=== PATIENT | female | born 1975 | race Caucasian/White ===

== ENCOUNTER → 2019-02-01 10:24 | Outpatient (CLI) | payer OTHER, SELFPAY ==
[2019-02-01 11:11] LABS: Add Manual Diff / Slide Review NO; Basophils Absolute Auto 100 /uL (0-100); Basophils Percent Auto 0.8 % (0-2); Eosinophils Absolute Auto 200 /uL (0-450); Eosinophils Percent Auto 2.8 % (2-4); Hematocrit 37.9 % (36-46); Hemoglobin 12.9 g/dL (12.0-16.0); Lymphocytes Absolute Auto 1700 /uL (1100-4500); Lymphocytes Percent Auto 23.5 % (25-40); Mean Corpuscular Hemoglobin 31.2 PG (26-34); Mean Corpuscular Volume 91.6 fL (80-100); Monocytes Absolute Auto 500 /uL (0-900); Monocytes Percent Auto 7.1 % (3-14); Neutrophils Absolute Auto 4700 /uL (1500-7000); Neutrophils Percent Auto 65.8 % (50-75); Platelet Count 283 X10^3/uL (150-400); Red Blood Cell Count 4.13 X10^6/uL (4.0-5.2); Red Cell Distribution Width 13.6 % (11.6-14.8); White Blood Cell Count 7.1 X10^3/uL (4.5-11.0)
[2019-02-01 11:48] LABS: HCG Quantitative /Beta subunit 1239.3 mIU/mL
[2019-02-01 11:58] LABS: Hepatitis B Surface Antigen NEGATIVE s/c (NEGATIVE)
[2019-02-02 22:49] LABS: RPR Screen Nonreactive (Nonreactive)
[2019-02-03 16:36] LABS: HIV Ag/Ab, 4th Gen Nonreactive (Nonreactive)
== END ==
PROVIDERS: PCP Nurse Practitioner Family; Visit Provider Nurse Practitioner Family
DX: N91.2 Amenorrhea, unspecified (principal); Z64.0 Problems related to unwanted pregnancy
CPT/HCPCS: 36415; 80055; 84702; 86703; 86850; 86900; 86901

== ENCOUNTER → 2019-02-03 12:45 | Outpatient (CLI) | payer OTHER, SELFPAY ==
[2019-02-03 14:21] LABS: HCG Quantitative /Beta subunit 1072.6 mIU/mL
== END ==
PROVIDERS: PCP Nurse Practitioner Family; Visit Provider Nurse Practitioner Family
DX: N91.2 Amenorrhea, unspecified (principal)
CPT/HCPCS: 36415; 84702

== ENCOUNTER → 2019-02-07 15:18 | Outpatient (CLI) | payer OTHER, SELFPAY ==
[2019-02-07 19:54] LABS: HCG Quantitative /Beta subunit 737.67 mIU/mL
== END ==
PROVIDERS: PCP Nurse Practitioner Family; Visit Provider Nurse Practitioner Family
DX: O02.81 Inappropriate change in quantitative human chorionic gonadotropin (hCG) in early pregnancy (principal)
CPT/HCPCS: 36415; 84702

== ENCOUNTER → 2019-08-23 08:56 | Outpatient (CLI) | payer OTHER, SELFPAY ==
--- NOTE | 2019-08-23 | DI.RAD.S_ITS ---
PROCEDURE: XR FOOT LT MIN 3V INDICATIONS: LEFT FOOT PAIN TECHNIQUE: 3 views of the foot were acquired. COMPARISON: [facility], , FOOT 3V RIGHT, 11/29/2015, 10:46. FINDINGS: Bones: No fractures or dislocations. No suspicious bony lesions. Plantar calcaneal spur. Borderline left hallux valgus, with first MTP angle measuring 15 ?. No definite right hallux valgus. Soft tissues: No tibiotalar joint effusion. Achilles tendon appears normal. IMPRESSION: Borderline left hallux valgus. Left plantar calcaneal spur. If the patient's pain or other symptoms persist, consider further evaluation with MRI Dictated by: Abiodun Pedraza M.D. on 08/23/2019 at 11:40 Approved by: Abiodun Pedraza M.D. on 08/23/2019 at 11:56
== END ==
PROVIDERS: PCP Nurse Practitioner Family; Visit Provider Nurse Practitioner Family
DX: M79.672 Pain in left foot (principal); M77.32 Calcaneal spur, left foot
CPT/HCPCS: 73630

== ENCOUNTER → 2020-12-28 09:22 | Outpatient (CLI) | payer OTHER, SELFPAY ==
[2020-12-28 10:28] LABS: GTT (PREG) 1 Hour PP 50gm Dose 190 mg/dL (76-139)
== END ==
PROVIDERS: PCP Nurse Practitioner Family; Referring Provider Nurse Practitioner Obstetrics & Gynecology; Visit Provider Nurse Practitioner Obstetrics & Gynecology
DX: Z34.90 Encounter for supervision of normal pregnancy, unspecified, unspecified trimester (principal); Z13.1 Encounter for screening for diabetes mellitus; Z3A.16 16 weeks gestation of pregnancy
CPT/HCPCS: 36415; 82950

== ENCOUNTER → 2021-01-03 07:26 | Outpatient (CLI) | payer OTHER, SELFPAY ==
[2021-01-03 08:24] LABS: Glucose Fasting 108 mg/dL (70-100)
[2021-01-03 09:21] LABS: Glucose 1 Hour 200 mg/dL (70-170)
[2021-01-03 10:36] LABS: Glucose 2 Hour 147 mg/dL (70-140)
[2021-01-03 11:01] LABS: Glucose Tol Interpretation INTERPRETATION
[2021-01-03 11:33] LABS: Glucose 3 Hour 112 mg/dL (70-115)
== END ==
PROVIDERS: PCP Nurse Practitioner Family; Referring Provider Nurse Practitioner Obstetrics & Gynecology; Visit Provider Nurse Practitioner Obstetrics & Gynecology
DX: Z34.90 Encounter for supervision of normal pregnancy, unspecified, unspecified trimester (principal); Z13.1 Encounter for screening for diabetes mellitus; R73.02 Impaired glucose tolerance (oral); Z3A.16 16 weeks gestation of pregnancy
CPT/HCPCS: 36415; 82951; 82952

== ENCOUNTER → 2021-02-04 13:59 | Outpatient (CLI) | payer OTHER, SELFPAY ==
--- NOTE | 2021-02-04 15:28 | DIET.PN ---
INITIAL GESTATIONAL DIABETES ASSESSMENT ASSESS:? Mrs. Simpson is a 45 yof referred for gestational diabetes with recent medical hx significant for HTN and severe heartburn. She is G5, P0. She has family hx of diabetes on both sides. Prior to pt was completely vegan, but has started introducing eggs and cheese back into diet. She currently has a dexcom CGM. ? ENA:?Jun 12, 2021 (scheduled early delivery) ? WKS GESTATION:?? 22 wks ?LABS: fb 1 hr: 200 2hr: 147 3hr: 112 ? MEDS: na ? DIET:? Avocado, eggs, nuts, cheese, leafy greens Avoids: caffeine, animal protein ? HT:? 64in ? PRE-PREG WT:? 230lb UBW: 210lb ? PRE-PREG BMI:???39.5 ? CURRENT WT: 226lb ? TOTAL WT GAIN:? -4lb EXERCISE: hiking, walking, active at work NUTRITION DX 1. Altered nutrition related lab values r/t gestational diabetes as evidenced by recent labs (OGGT). INTERVENTION 1. Discussed pathophysiology of gestational diabetes and impact of hormone and nutrition/diet on blood sugar control.? Discussed fed versus non-fed state.? 2. Recommended checking fasting, pre-meal and 1hr post prandial (3x/day).? Discussed goals for glycemic control (<95 FBG, <140 1-hr PP).? 3. Discussed the effect of carbohydrates/protein/fat on blood sugar control.? Stressed importance of consistent carbohydrate intake at each meal and provided instructions for recommended servings/portions of carbohydrates/protein per meal.? Provided pt with educational material. 4. Introduced carbohydrate counting and measuring carbohydrate content via servings sizes and reading nutrition labels.? Provided handouts.? Pt will need further review 5. Discussed importance of meal timing and not going >3 hours between meals.? Provided sample meal schedule for pt.? Pt agreeable.?? 6. Discussed importance a pre-sharon vitamin and including food sources of calcium, vitamin D, iron and folic acid for baby and mother?s nutrition support. 7. Discussed caffeine intake. Recommend no more than 200 mg/day (1 cup coffee). 8. Discussed rule of 15 for hypoglycemia. 9. Recommend patient purchase Urine Ketone strips and instructed on use and when to contact provider. 10. Recommended patient continue exercise as appropriate per PCP approval. 11. Patient may need medication management, will follow-up with plan of care at next visit after reviewing glucose results.? MONITOR/EVAL: Follow up call in 1 week to discuss numbers and any barriers to care. Good compliance expected. Review: carb sources, carb counting, portion size, meal timing, BG log, weight.
== END ==
PROVIDERS: PCP Nurse Practitioner Family; Referring Provider Nurse Practitioner Obstetrics & Gynecology; Visit Provider Nurse Practitioner Obstetrics & Gynecology
DX: O24.419 Gestational diabetes mellitus in pregnancy, unspecified control (principal); I10 Essential (primary) hypertension; Z3A.22 22 weeks gestation of pregnancy; Z71.3 Dietary counseling and surveillance
CPT/HCPCS: G0108

== ENCOUNTER → 2021-05-13 11:43 | Outpatient (ROUT) | payer OTHER, SELFPAY ==
[2021-05-13 13:47] LABS: Add Manual Diff / Slide Review NO; Basophils Absolute Auto 0 /uL (0-100); Basophils Percent Auto 0.4 % (0-2); Eosinophils Absolute Auto 200 /uL (0-450); Eosinophils Percent Auto 2.4 % (2-4); Hematocrit 32.5 % (36-46); Hemoglobin 10.7 g/dL (12.0-16.0); Lymphocytes Absolute Auto 1500 /uL (1100-4500); Lymphocytes Percent Auto 15.9 % (25-40); Mean Corpuscular HGB Conc 32.8 % (30-36); Mean Corpuscular Hemoglobin 28.3 PG (26-34); Mean Corpuscular Volume 86.2 fL (80-100); Monocytes Absolute Auto 600 /uL (0-900); Monocytes Percent Auto 6.6 % (3-14); Neutrophils Absolute Auto 7100 /uL (1500-7000); Neutrophils Percent Auto 74.7 % (50-75); Platelet Count 299 X10^3/uL (150-400); Red Blood Cell Count 3.77 X10^6/uL (4.0-5.2); Red Cell Distribution Width 14.8 % (11.6-14.8); White Blood Cell Count 9.5 X10^3/uL (4.5-11.0)
[2021-05-13 14:16] LABS: Aspartate Aminotransferase 28 IU/L (14-36); BUN Creatinine Ratio 12.2 (6-22); Blood Urea Nitrogen 5 mg/dL (7-17); Estimated Glomerular Filt Rate > 60.0 mL/min (>60); Uric Acid 2.8 mg/dL (2.5-6.2)
[2021-05-13 15:45] LABS: Creatinine Urine Random 149.4 mg/dL; Protein (Total) Urine Random 7 mg/dL (0-12); Protein Creatinine Ratio Urine 0.04 GRAM/24H
[2021-05-13 23:40] LABS: Thyroid Stimulating Hormone < 0.015 uIU/mL (0.47-4.68)
== END ==
PROVIDERS: PCP Nurse Practitioner Family; Visit Provider Nurse Practitioner Obstetrics & Gynecology
DX: O16.9 Unspecified maternal hypertension, unspecified trimester (principal); Z36.85 Encounter for antenatal screening for Streptococcus B; Z3A.35 35 weeks gestation of pregnancy
CPT/HCPCS: 82570; 84156; 84436; 84443; 84450; 84550; 85025; 87081

== ENCOUNTER → 2021-05-15 11:07 | Outpatient (CLI) | payer OTHER, SELFPAY ==
--- NOTE | 2021-05-15 11:10 | DI.US.S_ITS ---
PROCEDURE: US OB LIMITED INDICATIONS: BPP AND GROWTH OUTSIDE/PRIOR DATING DATA: Last menstrual period (LMP): In-vitro fertilization. LMP-based estimated date of delivery (ENA): Please refer to clinical record. . First dating scan (date and location): Not available. Estimated date of delivery (ENA) from first dating scan: Patient reports IV F with due date 06/12/21.. TECHNIQUE: Real-time scanning was performed of the fetus, with image documentation and biometric measurements. Endovaginal scanning: Not needed COMPARISON: None. FINDINGS: General: A single living intrauterine gestation is present. Presentation: Vertex. Placenta: Placental position is anterior , without previa. Amniotic fluid index: 14.3 cm, normal range is 5-24 cm. heart rate: 132 beats per minute. Maternal cervical canal: Not visualized due to vertex presentation. biometrics: Biparietal diameter: 9.3 cm, 37 weeks 5 days Head circumference: 33.2 cm, 37 weeks 6 days Abdominal circumference: 31.5 cm, 35 weeks 3 days Femur length: 6.8 cm, 35 weeks 0 days Estimated gestational age from initial scan: Not available. Composite gestational age from present scan: 36 weeks 4 days Estimated weight: 2779 g. Measurement variability for biometric dating: +/- 7 days from 14 weeks to 15 weeks 6 days gestation, +/- 10 days from 16 weeks to 21 weeks 6 days gestation, +/- 2 weeks from 22 weeks to 27 weeks 6 days gestation, +/- 3 weeks for 28 weeks gestation or later. weight reference: 4500 g or EFW >90/95% is considered macrosomia or large for gestational age. EFW <10% is small for gestational age. EFW 5% or less is considered intra-uterine growth restriction. Other: Normal biophysical profile with 8 of 8 possible points assigned.. IMPRESSION: Appropriate interval growth given the clinically reported in-vitro fertilization targeted date of delivery. Vertex presentation. Normal biophysical profile of 8 of 8 possible points. Dictated by: Sami Yeager M.D. on 05/15/2021 at 12:55 Approved by: Sami Yeager M.D. on 05/15/2021 at 12:59
== END ==
PROVIDERS: PCP Nurse Practitioner Family; Referring Provider Nurse Practitioner Obstetrics & Gynecology; Visit Provider Nurse Practitioner Obstetrics & Gynecology
DX: O09.813 Supervision of pregnancy resulting from assisted reproductive technology, third trimester (principal); O09.513 Supervision of elderly primigravida, third trimester; O10.013 Pre-existing essential hypertension complicating pregnancy, third trimester; O10.413 Pre-existing secondary hypertension complicating pregnancy, third trimester; O24.414 Gestational diabetes mellitus in pregnancy, insulin controlled; Z3A.36 36 weeks gestation of pregnancy
CPT/HCPCS: 76815; 76819

== ENCOUNTER → 2021-05-22 11:03 | Outpatient (CLI) | payer OTHER, SELFPAY ==
--- NOTE | 2021-05-22 11:05 | DI.US.S_ITS ---
PROCEDURE: US OB BIOPHYSICAL PROFILE INDICATIONS: BIOPHYSICAL PROFILE OUTSIDE/PRIOR DATING DATA: Last menstrual period (LMP): IVF LMP-based estimated date of delivery (ENA): IVF First dating scan (date and location): 11/29/20, outside examination. Estimated date of delivery (ENA) from first dating scan: 06/10/21 TECHNIQUE: Real-time scanning was performed of the fetus for biophysical profile, with image documentation. Color and pulse Doppler interrogation was also performed of the umbilical artery near its insertion into the placenta. Endovaginal scanning: Not performed COMPARISON: [facility], , US OB LIMITED, 05/15/2021, 10:31. Outside Facility, RG, US OB FOLLOW UP, 05/02/2021, 8:50. Outside Facility, RG, US OB COMPLETE, 04/18/2021, 9:21. Outside Facility, RG, US OB COMPLETE, 04/15/2021, 9:10. Outside Facility, RG, US OB COMPLETE, 03/21/2021, 10:17. Outside Facility, RG, US OB TRANSVAGINAL, 03/07/2021, 14:27. Outside Facility, RG, US OB TRANSVAGINAL, 03/05/2021, 14:49. Outside Facility, RG, US OB FOLLOW UP, 02/21/2021, 8:33. Outside Facility, RG, US OB DETAILED MFM, 01/24/2021, 13:16. Outside Facility, RG, US OB FIRST TRIMESTER, 11/29/2020, 8:25. FINDINGS: General: A single living intrauterine gestation is present. Presentation: Vertex. Placenta: Placental position is anterior , without previa. There is a 1.7 cm probable complex fluid collection/hematoma with ill-defined margins involving the right retroplacental region, adjacent to and right of a large intramural anterior fibroid which measures 4.5 x 4.7 x 3.6 cm. This measures up to 9.6 cm in length. No internal vascularity is seen. A previously described subchorionic hemorrhage adjacent to the superior/fundal margin is no longer seen on the current examination. Amniotic fluid index: 15.7 cm, normal range is 5-24 cm. heart rate: 141 beats per minute. Maternal cervical canal: Not well seen Estimated gestational age from initial scan: 37 weeks 4 days . Biophysical profile: Tone: 2 points. Movement: 2 points. Respiration: 2 points. Largest pocket of fluid: 2 points. IMPRESSION: Single living intrauterine fetus in vertex presentation. Previously described superior subchorionic fluid collection is no longer seen on the current examination Right retroplacental ill-defined complex fluid collection presumed hematoma which could be related to placental abruption, new since the prior study although technically age indeterminate. Findings were provided to the referring clinician at the time of the study. Normal biophysical profile Normal MURRAY Dictated by: Abiodun Pedraza M.D. on 05/22/2021 at 16:09 Approved by: Abiodun Pedraza M.D. on 05/22/2021 at 16:18
== END ==
PROVIDERS: PCP Nurse Practitioner Family; Referring Provider Nurse Practitioner Obstetrics & Gynecology; Visit Provider Nurse Practitioner Obstetrics & Gynecology
DX: O09.813 Supervision of pregnancy resulting from assisted reproductive technology, third trimester (principal); O09.513 Supervision of elderly primigravida, third trimester; O10.013 Pre-existing essential hypertension complicating pregnancy, third trimester; O10.413 Pre-existing secondary hypertension complicating pregnancy, third trimester; O24.414 Gestational diabetes mellitus in pregnancy, insulin controlled; Z3A.35 35 weeks gestation of pregnancy; Z3A.37 37 weeks gestation of pregnancy
CPT/HCPCS: 76819

== ENCOUNTER 2021-05-23 14:52 | Inpatient (IN) | payer OTHER, SELFPAY ==
[2021-05-23] MEDS: DINOPROSTONE VAG (CERVIDIL) 10 MG VAG (16:00)
--- NOTE | 2021-05-23 16:12 | PM.OBHP.1 ---
OB HPI Date/Time Date of admission: 05/23/21 Date Patient Seen: 05/23/21 Time Patient Seen: 15:20 History of Present Condition Chief complaint: : 3 Para: 0 Estimated Date of Delivery: 06/12/21 Estimated Gestational Age (weeks): 37.1 Narrative: Abi Simpson is a 45 year old female @ [id number] by IVF and early US dating. Has struggled with infertility for 11 years. has been co-managed by CNM and [facility] as patient declined transfer of care to [facility]. complications: AMA, IVF, chronic HTN on labetalol (100mg PO BID), insulin dependent gestational diabetes (Levemir 22 units QHS) and two partial abruptions at 24 and 30 weeks, admitted to [facility] for both episodes and discharged after resolution of bleeding. Has had well managed CHTN and GDMA2 with reassuring testing until yesterday's BPP of 05/19 showed a right retroplacental ill-defined complex fluid collection presumed hematoma which could be related to placental abruption, new since the prior study although technically age indeterminate. Consultation with [facility] recommended induction of labor at 38weeks. Patient is anxious about this possible 3rd bleed and requested immediate IOL which was agreed upon for today, given 37 completed weeks of with multiple complictions. Has been feeling good movement. Has not had any contractions, abdominal pain, vaginal bleeding or leaking of fluid. Desires lowest intervention possible in context of induction. , Vincenzo, is present and supportive. Indications Indication for induction OB: gestational diabetes and medical complication History of Present care: good care, initiated at week # (8), number of visits (13) and pounds weight gain (-9) Dating criteria: other (IVF transfer date and early US) Ultrasounds: normal mid trimester US Obstetrical complications: gestational diabetes Medical complications: other (Chronic hypertension) Preadmission Labs Blood type: A (+) positive -: Antibody screen: negative, GBS status: negative, HBsAG: negative, HIV: negative, HSV 1: positive, HSV 2: negative and RPR/VDLR: negative -: Chlamydia screen: not detected and Gonorrhea screen: not detected -: Rubella: immune HCT: 32.5 HCAB: negative Cell-free DNA: Negative, Male 1 hr GTT: 190 Narrative: 3hr gtt: 108/200/147/112 Prior (ies) History: 05/12/20: IVF SAB @ 6wk 02/07/19: IVF SAB @ 6wks Evaluation Evaluation Baseline heart rate: 135 Variability: Moderate (11-25) monitor accelerations: Present Monitor Decelerations: Absent Contraction Frequency (minutes): 0 Category of Tracing: Reactive Status: Category l Cervical dilation (cm): 0 Cervical effacement (%): 50 station: -3 Comments: medium, posterior Yu score-2 PFSH Medical History (Updated 05/23/21 @ 17:05 by Nina Castillo CNM) Chronic hypertension affecting Infertility Obesity (BMI 30-39.9) Subclinical hypothyroidism Surgical History (Updated 02/09/18 @ 06:04 by Conversion Provider) Status post tonsillectomy and adenoidectomy Family History (Updated 08/26/16 @ 00:00 by Conversion Provider) Father Age: 70 Diabetes mellitus Hypertension High cholesterol Mother Age: 64 Melanoma Diabetes mellitus Hypertension High cholesterol Social History (Updated 05/23/21 @ 17:07 by Nina Castillo CNM) marital status: household members: spouse lives independently: Yes caregiver/support person: No housing: house pets and animals: Yes education level: college occupational status: employed current occupational exposures/hazards: No Smoking Status: Never smoker second hand exposure: No substance use type: does not use Meds Home Medications and Allergies Home Medications Medication Instructions Recorded Confirmed Type insulin detemir U-100 100 unit/mL unit SUBCUT 05/23/21 History (3 mL) subcutaneous pen (Levemir FlexTouch U-100 Insulin) labetalol 100 mg tablet mg BID 05/23/21 History pantoprazole 40 mg tablet,delayed mg PO 05/23/21 History release Allergies Allergy/AdvReac Type Severity Reaction Status Date / Time No Known Drug Allergies Allergy Verified 05/23/21 15:25 Review of Systems Review of Systems ROS: Yes All systems reviewed with the patient and are negative except as otherwise documented Exam Vital Signs (past 8 hours): BP 135/69mmHg, HR 91bpm, T 36.5C Temporal Chest Chest: normal inspection of the chest Resp Effort & Inspection: normal respiratory effort Auscultation: clear to auscultation bilaterally Cardio Rate: regular rate Rhythm: regular rhythm Heart Sounds: S1 normal and S2 normal Presentation: vertex Objective Labs Result Diagrams: 05/23/21 16:05 05/23/21 16:05 Assessment and Plan Assessment and Plan Assessment and Plan narrative: Admit for cervical ripening. Routine admission labs with preeclampsia panel upon admission. Plan Cervidil, then sleep overnight. Consulted /OC OB and discussed patient, multiple complications and plan of care. agrees with plan for IOL and recommended use of patient's continuous BG monitor overnight with her standard Levemir 22 units SQ tonight, which has been verified by the pharmacy. Will switch to sliding scale insulin in am. Continuous EFM while Cervidil is in place. May place IV in am. Likely Fuentes balloon placement in am.
[2021-05-23 16:23] LABS: Add Manual Diff / Slide Review NO; Basophils Absolute Auto 100 /uL (0-100); Basophils Percent Auto 0.5 % (0-2); Eosinophils Absolute Auto 100 /uL (0-450); Eosinophils Percent Auto 0.7 % (2-4); Hematocrit 32.5 % (36-46); Hemoglobin 10.5 g/dL (12.0-16.0); Lymphocytes Absolute Auto 1900 /uL (1100-4500); Lymphocytes Percent Auto 15.2 % (25-40); Mean Corpuscular HGB Conc 32.4 % (30-36); Mean Corpuscular Hemoglobin 27.1 PG (26-34); Mean Corpuscular Volume 83.7 fL (80-100); Monocytes Absolute Auto 800 /uL (0-900); Neutrophils Absolute Auto 9700 /uL (1500-7000); Neutrophils Percent Auto 77.6 % (50-75); Platelet Count 314 X10^3/uL (150-400); Red Blood Cell Count 3.89 X10^6/uL (4.0-5.2); Red Cell Distribution Width 14.8 % (11.6-14.8); White Blood Cell Count 12.5 X10^3/uL (4.5-11.0)
[2021-05-23 16:37] LABS: Aspartate Aminotransferase 29 IU/L (14-36); BUN Creatinine Ratio 20.9 (6-22); Blood Urea Nitrogen 9 mg/dL (7-17); Estimated Glomerular Filt Rate > 60.0 mL/min (>60); Uric Acid 3.2 mg/dL (2.5-6.2)
[2021-05-23 17:04] LABS: Creatinine Urine Random 295.3 mg/dL
[2021-05-23 17:05] LABS: Protein (Total) Urine Random < 5 mg/dL (0-12); Protein Creatinine Ratio Urine 0.01 GRAM/24H
[2021-05-23 17:33] LABS: COVID19 - ADMIT (NP swab/PCR) Negative (Negative)
[2021-05-23 20:32] VITALS: BP 139/78
[2021-05-23 20:55] VITALS: BP 135/69
[2021-05-23 21:36] VITALS: BP 139/78; PULSE 90
[2021-05-23] MEDS: LABETALOL 100 MG TABLET PO (21:36)
[2021-05-23] MEDS: LEVEMIR 22 UNIT 22 EACH SUBCUT (21:37)
--- NOTE | 2021-05-24 07:52 | PM.OBPNLAB ---
Date/Time Date Patient Seen: 05/24/21 Time Patient Seen: 07:30 Pain Control Comments: EJ rested on and off overnight with Cervidil in place, causing mild contractions, until 0300. Is open to Fuentes balloon placement at this time. Continues to request IV placement delayed until absolutely necessary. VS: BP 115/58mmHg, HR 77bpm, T 36.7C Temporal Pelvic Exam Dilation (cm): 1 Effacement (%): 50 station: -3 Amniotic membrane status: Intact Comments: Fuentes balloon placed with sterile technique with XL graves speculum and inflated with 50mL normal saline. Contractions Date/Time contractions began: none prior to Feuntes balloon placement Monitor mode: None Status status: Category l Heart Rate Baseline: 130 Comments: FHR reassuring by intermittent auscultation with doppler. Assessment and Plan Assessment: induction ongoing Plan: continuous present management Comments: Counseled patient and her supportive on recommendation for IV access in case of emergency (example: increased risk of abruption in labor) and waiting to place it until an abruption is actually occurring, is too late. Pt agrees to IV later today. Recommend alternating hourly NST and doppler FHTs, during this early stage. Will reassess after Fuentes balloon is out or in 12 hours.
--- NOTE | 2021-05-24 08:47 | PM.CN ---
History of Present Illness Consult details Date Patient Seen: 05/24/21 Time Patient Seen: 08:47 Chief complaint: Reason for consult: Insulin management in labor Narrative: Patient is a 45-year-old 3 para 0 conceived by IVF with EDC of 06/12/2021 now at 37 weeks gestation. Patient has chronic hypertension managed by labetalol and insulin dependent diabetes single doses p.m. long-acting insulin to manage elevated fasting blood sugars but otherwise her blood sugars have been managed with diet. Patient has a sub Q to Patient had partial abruption x2 is that required hospitalizations at 24 and 30 weeks. Patient received Cytotec overnight and did receive her p.m. long-acting insulin last night. Her induction is ongoing with Fuentes bulb this morning. The plan is for patient to be able to manage her blood sugars with her diet as usual however we will have in place a sliding scale fast acting insulin if needed. Meds Home Medications and Allergies Home Medications Medication Instructions Recorded Confirmed Type insulin detemir U-100 100 unit/mL See Rx Instructions .ROUTE .COMPLEX 05/23/21 05/23/21 History (3 mL) subcutaneous pen (Levemir FlexTouch U-100 Insulin) labetalol 100 mg tablet 100 mg BID 05/23/21 05/23/21 History pantoprazole 40 mg tablet,delayed mg PO DAILY 05/23/21 History release Allergies Allergy/AdvReac Type Severity Reaction Status Date / Time No Known Drug Allergies Allergy Verified 05/23/21 15:25 Objective Labs Result Diagrams: 05/23/21 16:05 05/23/21 16:05 Labs: Laboratory Results - last 24 hr 05/23/21 05/23/21 05/23/21 16:05 16:05 16:05 WBC 12.5 H RBC 3.89 L Hgb 10.5 L Hct 32.5 L MCV 83.7 MCH 27.1 MCHC 32.4 RDW 14.8 Plt Count 314 Neut % (Auto) 77.6 H Lymph % (Auto) 15.2 L [place] % (Auto) 6.0 Eos % (Auto) 0.7 L Baso % (Auto) 0.5 Neut # (Auto) 9700 H Lymph # (Auto) 1900 [place] # (Auto) 800 Eos # (Auto) 100 Baso # (Auto) 100 BUN Creatinine Estimated GFR BUN/Creatinine Ratio Uric Acid AST U Random Total Protein Urine Creatinine Protein/Creatinin Ratio SARS-CoV-2 (PCR) Negative Blood Type A Positive Antibody Screen Negative 05/23/21 05/23/21 16:05 16:05 WBC RBC Hgb Hct MCV MCH MCHC RDW Plt Count Neut % (Auto) Lymph % (Auto) T[place] % (Auto) Eos % (Auto) Baso % (Auto) Neut # (Auto) Lymph # (Auto) T[place] # (Auto) Eos # (Auto) Baso # (Auto) BUN 9 Creatinine 0.43 L Estimated GFR > 60.0 BUN/Creatinine Ratio 20.9 Uric Acid 3.2 AST 29 U Random Total Protein < 5 Urine Creatinine 295.3 Protein/Creatinin Ratio 0.01 SARS-CoV-2 (PCR) Blood Type Antibody Screen Assessment & Plan Assessment and plan (1) Gestational diabetes mellitus (GDM) requiring insulin: Status: Acute Assessment & Plan narrative: Insulin dependent gestational diabetes using 1 dose of long-acting insulin in the evening which she received last night. Sliding scale insulin as needed today.
[2021-05-24] MEDS: LABETALOL 100 MG TABLET PO ×2 (09:10→20:49)
--- NOTE | 2021-05-24 15:08 | P.PNOB_ITS ---
Pain Control Pain control: tolerating well Comments: Fuentes balloon spontaneously out while on toilet at 1430. All contractions stopped after Fuentes balloon came out. Talking and laughing. VS: BP 129/80, HR 79, RR 16, Temp 36.1 Pelvic Exam Dilation (cm): 4 Effacement (%): 50 station: -3 Amniotic membrane status: Intact Comments: Yu score-7 Contractions Monitor mode: External Contraction frequency (min): 5 Contraction duration (min): 120 Contraction pattern: Irregular Contraction intensity: Mild Status status: Category l Heart Rate Baseline: 135 Monitor Accelerations: Present Monitor Decelerations: Absent Monitor Variability: Moderate Assessment and Plan Assessment: induction ongoing Plan: continuous present management Comments: Recommend a dose of misoprostil prior to starting pitocin and patient agrees. IR tech is available to come at 1630 for IV placement per EJ's request a nd history of difficult IV start. Plan to start pitocin 4 hrs after misoprostol. Reasses in 4-6 hours, or sooner, PRN.
[2021-05-24] MEDS: miSOPROStoL 25 MCG TABLET 50 MCG PO (15:23)
--- NOTE | 2021-05-24 19:52 | PM.OBPNLAB ---
Date/Time Date Patient Seen: 05/24/21 Time Patient Seen: 20:00 Pain Control Pain control: tolerating well Comments: Pt sitting on ball with supportive partner at side, not soto uncomfortably. Abi states she is willing to move on to the next step to continue her induction. BGs, per her continuous monitor have been normal all day, average 110. VS:BP 134/67, HR 86, Temp 36.4 temporal Pelvic Exam Dilation (cm): 4 Effacement (%): 70 station: -3 Amniotic membrane status: Intact Comments: CE deferred Contractions Monitor mode: External Contraction frequency (min): 5 Contraction pattern: Regular Contraction intensity: Mild Status status: Category l Heart Rate Baseline: 135 Monitor Accelerations: Present Monitor Decelerations: Absent Monitor Variability: Moderate Assessment and Plan Assessment: induction ongoing Plan: continuous present management Comments: Pitocin discussed at length with Abi and her who now consent. Recommend to start pitocin now and increase per protocol with continuous FHR monitoring. Encouraged balanced rest and activity. Reassesses 2 hours after strong contractions, or sooner, PRN.
[2021-05-24] MEDS: LACTATED RINGERS 1,000 ML 100 ML IV (20:06)
[2021-05-24] MEDS: OXYTOCIN PREMIX 30 UNIT/500 ML PLAST..BAG IV (20:06)
[2021-05-24] MEDS: LEVEMIR 22 UNIT 22 EACH SUBCUT (20:53)
--- NOTE | 2021-05-25 02:00 | PM.OBPNLAB ---
Date/Time Date Patient Seen: 05/25/21 Time Patient Seen: 02:00 Pain Control Pain control: tolerating well (sleeping) Comments: VS: BP 118/54mmHg, HR 85bpm, T 36.4C Temporal Pelvic Exam Dilation (cm): 4 Effacement (%): 70 station: -3 Amniotic membrane status: Intact Comments: CE deferred as pt is not soto uncomfortably Contractions Monitor mode: External Pitocin rate (mU/min): 8 Contraction frequency (min): 3 Contraction duration (min): 1 Contraction pattern: Regular Contraction intensity: Mild Status status: Category l Heart Rate Baseline: 130 Monitor Accelerations: Present Monitor Decelerations: Absent Monitor Variability: Moderate Assessment and Plan Assessment: induction ongoing Comments: Continue pitocin titration to adequate contractions. Enourage rest overnigth and ambulation/ upright positions when awake. Reassess in 4 hours or sooner PRN.
[2021-05-25] MEDS: LACTATED RINGERS 1,000 ML 100 ML IV ×3 (05:03→20:52)
--- NOTE | 2021-05-25 06:27 | PM.OBPNLAB ---
Date/Time Date Patient Seen: 05/25/21 Time Patient Seen: 06:00 Pain Control Pain control: tolerating well Comments: Abi is talking through contractions, rates them as mild. She has slept on and off throughout the night. She plans to shower and eat breakfast VS: BP- 118/54mmHg HR- 75bpm, T-36.4C temporal Pelvic Exam Dilation (cm): 5 Effacement (%): 70 station: -3 Amniotic membrane status: Intact Contractions Monitor mode: External Contraction frequency (min): 3 Contraction pattern: Regular Contraction intensity: Mild Status status: Category l Heart Rate Baseline: 130 Monitor Accelerations: Present Monitor Decelerations: Absent Monitor Variability: Moderate Assessment and Plan Assessment: induction ongoing Comments: Recommend to continue to increase pitocin per protocol, continue continuous EFM. Ambulation and up right position encouraged now that she is awake. Discussed possible swich back to cervical ripening if no progress in 6 hours. Reassess in 6 hours or sooner PRN
[2021-05-25 08:57] VITALS: BP 115/70; PULSE 74
[2021-05-25] MEDS: LABETALOL 100 MG TABLET PO ×2 (08:57→23:15)
--- NOTE | 2021-05-25 11:57 | PM.OBPNLAB ---
Date/Time Date Patient Seen: 05/25/21 Time Patient Seen: 11:30 Pain Control Pain control: tolerating well (walking and talking through contractions) Comments: Has been up moving and walking, feels occasional contractions, but mostly unaware of them. Has noticed more mucus discharge, but otherwise no changes. remains present and supportive. Broaching Machine Set Up Operator, Dunia, has arrived. Pelvic Exam Dilation (cm): 5.5 Effacement (%): 70 station: -3 Amniotic membrane status: Intact Comments: membranes swept Contractions Monitor mode: External Pitocin rate (mU/min): 22 Contraction frequency (min): 3 Contraction duration (min): 1 Contraction pattern: Regular Contraction intensity: Mild Status status: Category l Heart Rate Baseline: 140 Monitor Accelerations: Present Monitor Decelerations: Absent Monitor Variability: Moderate Assessment and Plan Assessment: induction ongoing Plan: continuous present management Comments: Long conversation about potential max dose of pitocin and how much time we can give this to work. Recommend continue current plan for a few more hours and then consider pitocin rest and switch back to misoprostil. Also discussed option to discharge to home and try agaain in a few days given sustained Cat I FHR, well managed BP and BGs. Reassess in 2-4 hours or sooner, PRN.
--- NOTE | 2021-05-25 16:47 | PM.OBPNLAB ---
Date/Time Date Patient Seen: 05/25/21 Time Patient Seen: 16:30 Pain Control Pain control: tolerating well (Occasionally breathing through stronger contractions) Comments: Has had a lot of loose stool all day. Feeling more uncomfortable. During the last 4 hours, has verbalized a strong desire NOT to call a halt and would be interested in previously declined options for labor, like AROM. Asked her and dermatology teacher to step out for a while so she could be alone, but is anticipating their return soon. Pelvic Exam Dilation (cm): 6 Effacement (%): 75 station: -2 Amniotic membrane status: Bulging Contractions Monitor mode: External Pitocin rate (mU/min): 29 Contraction frequency (min): 2 Contraction duration (min): 1 Contraction pattern: Regular Contraction intensity: Moderate Status status: Category l Heart Rate Baseline: 140 Monitor Accelerations: Present Monitor Decelerations: Absent Monitor Variability: Moderate Assessment and Plan Assessment: active labor Plan: continuous present management and other Comments: Discussed high dose of pitocin with progress towards active labor, but not quite there yet. Recommend AROM with discussion of risks and potential benefits. Abi plans to talk with Vincenzo, upon his return, and let me know. Continuous labor support. Continue pitocin, per protocol. Will perform AROM, if Abi consents. OB Back-up/ was notified of patient's progress and plan of care.
--- NOTE | 2021-05-25 19:04 | PM.OBPNLAB ---
Date/Time Date Patient Seen: 05/25/21 Time Patient Seen: 19:00 Pain Control Pain control: epidural Comments: SROM, clear fluid at 1730, followed immediately by strong contractions. Pitocin has been steadily decreased. EJ labored on the toilet and then requested an epidural which has been placed with good relief. VS: BP 129/62mmHg, HR 74bpm, RR 16/min, SpO2 98%, T 36.5C Temporal BGs remain WNL on her continuous monitor Pelvic Exam Dilation (cm): 6 Effacement (%): 100 station: -1 Amniotic membrane status: Leaking (clear) Comments: Fuentes placed immediately prior to CE, draining clear, dark yellow urine Contractions Monitor mode: External Pitocin rate (mU/min): 15 Contraction frequency (min): 2 Contraction pattern: Regular Contraction intensity: Strong/Firm Status status: Category l Heart Rate Baseline: 135 Monitor Accelerations: Present Monitor Decelerations: Absent Monitor Variability: Moderate Assessment and Plan Assessment: active labor Plan: continuous present management Comments: Encourage rest with Q30 minute position changes. Reassess in 4 hours or sooner, PRN.
--- NOTE | 2021-05-26 00:11 | P.CONS_ITS ---
History of Present Illness Consult details Date Patient Seen: 05/26/21 Time Patient Seen: 00:11 Chief complaint: Reason for consult: Prolonged decelerations in 2nd stage Requesting provider: iNna Castillo Narrative: Patient has been in hospital for induction for recurrent abruptions in . complicated by hypertension, insulin-dependent gestational diabetes. Patient had been on Pitocin. She received an epidural catheter for pain control. With onset of complete dilation the fetus was showing repetitive severe decelerations to the 60s. I was consulted to help with vacuum assistance to expedite delivery of the baby. Meds Home Medications and Allergies Home Medications Medication Instructions Recorded Confirmed Type insulin detemir U-100 100 unit/mL See Rx Instructions .ROUTE .COMPLEX 05/23/21 05/23/21 History (3 mL) subcutaneous pen (Levemir FlexTouch U-100 Insulin) labetalol 100 mg tablet 100 mg BID 05/23/21 05/23/21 History pantoprazole 40 mg tablet,delayed mg PO DAILY 05/23/21 History release Allergies Allergy/AdvReac Type Severity Reaction Status Date / Time No Known Drug Allergies Allergy Verified 05/23/21 15:25 Exam Narrative Exam Narrative: The fetus was at a 0 station with pushing. The vacuum was attached to the head and with mother pushing and traction the fetus was brought to +1 station. With the 2nd pushing the head was brought to the vaginal opening and was delivered. The suction was removed. The department head [employer] took over the delivery of the infant who had a nuchal cord. See her dictation for the rest of the delivery. Objective Labs Result Diagrams: 05/23/21 16:05 05/23/21 16:05 Assessment & Plan Assessment and plan (1) Vacuum-assisted vaginal delivery: Status: Acute Assessment & Plan narrative: Persistent decelerations with pushing. Successful delivery by vacuum assistance.
--- NOTE | 2021-05-26 00:58 | PM.PROC.1 ---
Procedures Date/Time Date of procedure: 05/26/21 Time of procedure: 00:58 General Procedure description: I was recalled to delivery room after failure of the placenta to deliver spontaneously. Because the patient had an epidural catheter in place decision was made to do a manual removal of placenta in her delivery room. A hand was put up in to the vagina and the placenta from the uterus. Placenta was manually removed. After placenta removed the hand was replaced and it appeared that all of the tissue was removed. She will be monitored closely for bleeding from retained fragments. She did not have significant blood loss.
--- NOTE | 2021-05-26 01:11 | PM.OBPRVD ---
Labor & Delivery Delivery date: 05/26/21 Intrapartal Events: Deceleration Cervical ripening method: per Cervidil protocol (Followed by Fuentes balloon and then misoprostil) Induction method: per pitocin protocol Delivery augmentation: pitocin Delivery monitor: external FHT and external uterine Route of delivery: vacuum extraction Indication for instrumentation: nonreassuring FHR tracing Episiotomy description: None L&D Laceration Description: Perineal - 2nd Degree Delivery repair: chromic (3.0) Estimated blood loss (mL): 250 Anesthesia Type: Epidural Narrative: Abi was examined at 2300 and found to be C/C/+1. After setup and coaching, pushing began at 2315 followed shortly after by deep variables with pushing. Abi was moved to hands and knees with IV fluid bolus and O2 @ 10L per NRB mask. was called to standby for vacuum assistance and FHR improved for a short period of time. With second prolonged bradycardia, Abi was consented for a VAVB, applied by Dr. Noel who pulled through two contrations with zero pop-offs. Vacuum was removed at partial delivery of the head and CNM resumed care. VAVB of a viable baby boy in YENNY position with a single loose nuchal cord and easy delivery of the shoulders. was placed on maternal abdomen for drying and stimulation. Apgars 7/9. After cessation of pulsation, the cord was double clamped by CNM and cut by FOB. Hospital cord blood hold sample was collected. Retained placenta without hemorrhage was noted and was called back for manual removal of retained placenta. Abi tolerated the manual removal well under epidrual anesthesia. Remaining 30 units of pitocin in 500mL LR was bolused after manual removal. Fundus was firm and QBL 300mL. Vagina and perineum inspected and 2nd degree perineal laceration was repaired with 3.0 Chromic in the usual fashion. Baby 1: Infant gender: Male Presentation: vertex Position: Right Occiput Anterior Placenta delivery description: Manual Removal Cord Vessel Description: 3 Vessels score (1 min): 7 score (5 min): 9 weight: 2.892 kg Plan for aftercare: Routine care
[2021-05-26] MEDS: KETOROLAC 30 MG/ML VIAL IV (02:54)
[2021-05-26] MEDS: OXYCODONE IR 5 MG TABLET PO ×3 (02:55→15:49)
[2021-05-26] MEDS: CEFAZOLIN 1 GM VIAL 2 GM IV (02:56)
[2021-05-26] MEDS: LANOLIN OINT 7 GM 1 APPLIC TOP (09:00)
[2021-05-26] MEDS: DERMOPLAST SPRAY 20% 60 ML 1 SPRAY TOP (09:00)
[2021-05-26] MEDS: ACETAMINOPHEN 325 MG TABLET 650 MG PO ×2 (09:01→15:48)
[2021-05-26] MEDS: IBUPROFEN 600 MG TABLET PO ×2 (09:02→15:48)
--- NOTE | 2021-05-26 12:48 | PM.OBPN.1 ---
Subjective - OB Subjective Patient comments: no complaints, pain well controlled and tolerating diet baby status: doing well feeding status: breast and bottle feeding (required single formul asupplementation for low blood glucose) Date Patient Seen: 05/26/21 Time Patient Seen: 12:00 Interval history: Abi is voiding and ambulating independently without difficulty. Pain is well controlled with PO medication. Working on , though her son tends to have short duration of latch. 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 Feeing surprisingly well and overjoyed to have her son in her arms. remains present and supportive. Exam Vital Signs (past 8 hours): Bp 114/73, HR 88bpm, RR 18, T 98/4F Temporal Other: Fundud firm @ U. Lochia light, no clots, perineum well approximated Objective Labs Result Diagrams: 05/23/21 16:05 05/23/21 16:05 Assessment & Plan Assessment and Plan (1) Vacuum-assisted vaginal delivery: Start date: 05/26/21 Status: Acute Assessment and plan: Routine PP care (2) Second degree perineal laceration during delivery: Status: Acute Assessment and plan: Routine PP care Plan day: 1 plan OB: routine care Comments: ANNEL has received a single dose of cefazolin 2grams for manual removal of placenta. Her blood sugars remain continuously monitored and mostly WNL. BP without medication remains stable. Will continue routien PP orders with support. Anticipate d/c to home tomorrow. Time Spent With Patient Time: Total time spent is greater than 50% in coordination of care (as documented) at patient's floor/unit and/or counseling patient: Time with patient: 15-24 minutes
[2021-05-27] MEDS: ACETAMINOPHEN 325 MG TABLET 650 MG PO ×2 (03:03→10:04)
[2021-05-27] MEDS: IBUPROFEN 600 MG TABLET PO ×2 (03:04→10:02)
[2021-05-27] MEDS: OXYCODONE IR 5 MG TABLET PO ×2 (03:05→10:05)
--- NOTE | 2021-05-27 06:45 | P.DS_ITS ---
Discharge Providers Provider Date of admission: 05/23/21 14:52 Discharge Date: 05/27/21 Primary care physician: IDANIA Marie Consults: 05/27/21 01:08 Consult to Marketing Professor Routine Comment: Discharge provider: Nina Castillo CNM Summary Hospital Course Date Patient Seen: 05/27/21 Time Patient Seen: 06:48 Diagnoses: Vacuum assisted baginal with 2nd degree laceration, manual removal of retained placenta Hospital Course: Abi is voiding and ambulating independently. Tolerating her normal, vegetarian diet. Pain is well controlled with occasional oxycodone use. is unimproved with not currently able to sustain a latch. Peripartum Data Delivery Method: Assisted Delivery (Vacuum) Laceration Description: Perineal - 2nd Degree Episiotomy description: None 1: Gender: Male Disposition of : other (continued admission, initiating phototherapy) Discharge Diagnosis (1) Vacuum-assisted vaginal delivery: Start Date: 05/26/21 Start Time: 00:10 Status: Acute (2) Second degree perineal laceration during delivery: Status: Acute (3) Retained placenta w/o hemorrhage, delivered, current hospitalization: Status: Acute Problem Details: pain well managed and minimal vaginal bleeding Status at Discharge Cognitive/behavioral status at discharge: oriented and calm Functional status at discharge: independent ambulation Overall status at discharge: patient is progressing back to baseline Time Spent with Patient Time attestation: Total time spent providing and/or coordinating discharge services: Time spent: Less than 30 minutes Specific discharge activities: pelvic rest x 6 weeks Objective Labs Result Diagrams: 05/23/21 16:05 05/23/21 16:05 Exam Vital Signs (past 8 hours): BP 132/78, HR 78bpm, T 97.6F Temporal Other: Fundus firm @ U-1, lochia light, perineum well approximated Discharge Plan Discharge Plan Patient Disposition: Home Provider Discharge Comment: will stay in room with until is discharged to home Discharge orders & Medications Prescriptions: New acetaminophen 325 mg Tablet 650 mg PO Q6HR PRN (Reason: Pain, Mild (1-3)) 14 Days Qty: 60 RF: 0 ibuprofen 600 mg Tablet 600 mg PO Q6HR PRN (Reason: Pain, Mild (1-3)) 14 Days Qty: 60 RF: 0 oxycodone 5 mg Tablet 5 mg PO Q4HR PRN (Reason: Pain, Moderate (4-6)) 4 Days Qty: 12 RF: 0 Discontinued labetalol 100 mg tablet 100 mg BID RF: 0 Levemir FlexTouch U-100 Insuln 100 unit/mL (3 mL) insulin pen See Rx Instructions .ROUTE .COMPLEX RF: 0 pantoprazole 40 mg tablet,delayed release (DR/EC) PO DAILY RF: 0 Follow up/Referrals: Stella Britt ARNP [Primary Care Provider] - Nina Castillo CNM [Advanced Shipfitter Apprentice] - (Please follow up with Nina with a telehealth visit on 06/10/2021 at 8:45, and an office appointment on 07/08/2021 at 10:00. ) Diet/Activity/Treatments Diet: Diet as Tolerated Activity: pelvic rest x 6 weeks Skin/Wound/Dressing Care Report to your healthcare provider any signs of infection, such as:: chills, fever, increased pain, unusual drainage and unusual redness Visit Report/Discharge Packet Instructions: Depression Stand Alone Forms: Discharge: Care Discharge Data Primary Care Provider: Stella Britt
[2021-05-27 10:02] VITALS: TEMP 36.9
[2021-05-27 10:04] VITALS: TEMP 36.9
[2021-05-27 10:05] VITALS: TEMP 36.9
[2021-05-27 10:36] VITALS: BP 123/73; PULSE 80; RESP 17; TEMP 36.8
== END 2021-05-27 14:00 | disposition home or self-care (01) | DRG 806 ==
PROVIDERS: Admitting Provider Nurse Practitioner Obstetrics & Gynecology; PCP Nurse Practitioner Family; Referring Provider Nurse Practitioner Obstetrics & Gynecology; Visit Provider Nurse Practitioner Obstetrics & Gynecology
DX: O24.424 Gestational diabetes mellitus in childbirth, insulin controlled (principal); O10.92 Unspecified pre-existing hypertension complicating childbirth; Z37.0 Single live birth; Z3A.37 37 weeks gestation of pregnancy; Z20.822 Contact with and (suspected) exposure to COVID-19; O76 Abnormality in fetal heart rate and rhythm complicating labor and delivery; O70.1 Second degree perineal laceration during delivery; O69.81X0 Labor and delivery complicated by cord around neck, without compression, not applicable or unspecified; O73.0 Retained placenta without hemorrhage
CPT/HCPCS: 01967; 36415; 59050; 59200; 59414; 82570; 84156; 84450; 84550; 85025; 86850; 86900; 86901; 87635; 99252; C9803; G0379; J0690; J1885; J2590

== ENCOUNTER → 2021-10-14 14:43 | Outpatient (CLI) | payer OTHER, SELFPAY ==
[2021-10-14 19:23] LABS: COVID19 -Nasal RAPID Negative (Negative)
== END ==
PROVIDERS: PCP Nurse Practitioner Family; Visit Provider Physician Assistant
DX: Z20.822 Contact with and (suspected) exposure to COVID-19 (principal)
CPT/HCPCS: 87635

== ENCOUNTER → 2021-11-21 16:29 | Outpatient (CLI) | payer OTHER, SELFPAY ==
--- NOTE | 2021-11-21 | DI.RAD.S_ITS ---
PROCEDURE: XR KNEE RT 1TO2V INDICATIONS: Pain knees TECHNIQUE: 2 views of the knee were acquired. COMPARISON: [facility], , KNEE 3V LEFT, 04/27/2017, 11:09. FINDINGS: Bones: No fractures or dislocations. No suspicious bony lesions. Soft tissues: No joint effusion. No suspicious soft tissue calcifications. IMPRESSION: No definite radiographic abnormality. If pain persists with conservative management, consider cross sectional imaging such as CT or MRI for further assessment. Dictated by: Panchito GARCÍA Interpreted: Owen Terrell MD on 11/21/2021 at 17:03 Transcribed by: CAITLYN on 11/21/2021 at 17:04 Approved by: Owen Terrell M.D. on 11/21/2021 at 17:20
--- NOTE | 2021-11-21 | DI.RAD.S_ITS ---
PROCEDURE: XR HAND LT 2V INDICATIONS: pain hands TECHNIQUE: 3 views of the hand(s) acquired. COMPARISON: None. FINDINGS: Bones: No fractures or dislocations. Carpal bones are normally aligned. No suspicious bony lesions. Soft tissues: No suspicious soft tissue calcifications. IMPRESSION: Joints are well maintained and no inflammatory arthritic changes. Dictated by: Panchito GARCÍA Interpreted: Owen Terrell MD on 11/21/2021 at 17:03 Transcribed by: CAITLYN on 11/21/2021 at 17:03 Approved by: Owen Terrell M.D. on 11/21/2021 at 17:20
--- NOTE | 2021-11-21 | DI.RAD.S_ITS ---
PROCEDURE: XR HIP W PEL IF DONE BILAT 2V INDICATIONS: pain hips TECHNIQUE: AP pelvis with lateral view(s) of the left and right hip(s). COMPARISON: None. FINDINGS: Bones: No fractures or dislocations. Pelvic ring appears intact. No suspicious bony lesions. Prominent right os acetabuli. Joints are well maintained bilaterally. Soft tissues: The visualized bowel gas pattern is normal. No suspicious soft tissue calcifications. IMPRESSION: Prominent right os acetabuli; otherwise normal appearance of the hip joints bilaterally. Dictated by: Panchito Norton [facility] Interpreted: Owen Terrell MD on 11/21/2021 at 17:04 Transcribed by: CAITLYN on 11/21/2021 at 17:05 Approved by: Owen Terrell M.D. on 11/21/2021 at 17:20
--- NOTE | 2021-11-21 | DI.RAD.S_ITS ---
PROCEDURE: XR KNEE LT 1TO2V INDICATIONS: Pain knees, pain hips, pain hands TECHNIQUE: 2 views of the knee were acquired. COMPARISON: [facility], , KNEE 3V LEFT, 04/27/2017, 11:09. FINDINGS: Bones: No fractures or dislocations. No suspicious bony lesions. Soft tissues: Small joint effusion. No suspicious soft tissue calcifications. IMPRESSION: Small knee joint effusion; otherwise normal left knee. Dictated by: Panchito Norton [facility] Interpreted: Owen Terrell MD on 11/21/2021 at 17:05 Transcribed by: CAITLYN on 11/21/2021 at 17:05 Approved by: Owen Terrell M.D. on 11/21/2021 at 17:20
--- NOTE | 2021-11-21 | DI.RAD.S_ITS ---
PROCEDURE: XR HAND RT 2V INDICATIONS: pain hads TECHNIQUE: 3 views of the hand(s) acquired. COMPARISON: None. FINDINGS: Bones: No fractures or dislocations. Carpal bones are normally aligned. No suspicious bony lesions. Small bone island involving the 3rd distal phalangeal base Soft tissues: No suspicious soft tissue calcifications. IMPRESSION: Joints are well maintained and no inflammatory arthritic changes. Dictated by: Panchito Norton [facility] Interpreted: Owen Terrell MD on 11/21/2021 at 17:02 Transcribed by: CAITLYN on 11/21/2021 at 17:03 Approved by: Owen Terrell M.D. on 11/21/2021 at 17:20
== END ==
PROVIDERS: PCP Physician Assistant; Referring Provider Physician Assistant; Visit Provider Physician Assistant
DX: M25.561 Pain in right knee (principal); M25.562 Pain in left knee; M25.462 Effusion, left knee; M25.541 Pain in joints of right hand; M25.542 Pain in joints of left hand; M25.551 Pain in right hip; M25.552 Pain in left hip
CPT/HCPCS: 73120; 73521; 73560

== ENCOUNTER 2022-08-12 08:15 | Outpatient (RCR) | payer OTHER, SELFPAY ==
--- NOTE | 2021-08-27 18:00 | PT.OIE ---
Current Diagnoses Mixed incontinence (08/27/21) Urethrocele (08/27/21) Past Medical History (Last Updated 05/23/21 @ 17:03 by Nina Castillo CNM) Chronic hypertension affecting Infertility Obesity (BMI 30-39.9) Subclinical hypothyroidism Past Surgical History Status post tonsillectomy and adenoidectomy Visit Care Team Role Provider Type IDANIA Marie Primary Care Provider Non-Staff Specialty: Medical Address: [address] [place] [address], [address], [place], [address] Email: Nina Castillo CNM Attending Provider Advanced Slip Cover Operator Referring Provider Specialty: FORENSIC EXAMINER Address: [address] [place] [address], [place] [address], [place], [address] Email: [email or web address] Physical Therapy Initial Evaluation PT-OP-A Visit Information Start: 08/26/21 17:47 Freq: Status: Active Protocol: Document 08/27/21 11:30 LRN (Rec: 08/27/21 12:29 LRN [id number]) Out-Patient Physical Therapy Visit Information Visit Information Visit Type Initial Evaluation Visit Start Time 11:30 Visit Stop Time 12:24 Total Visit Minutes 54 Visit Number 1 Evaluation Information Evaluation Date 08/27/21 Precautions Precautions Diabetes type II PT-OP-B Current Condition Start: 08/26/21 17:47 Freq: Status: Active Protocol: Document 08/27/21 11:30 LRN (Rec: 08/27/21 12:29 LRN [id number]) Current Condition History of Current Condition Onset Date 05/26/21 Current Complaints Urinary leakage with sneeze or cough and general joint achiness. History of Current Condition Pt is 12 weeks s/p childbirth. Onset of urinary leakage since of son with 58 hour labor suffering a 2nd degree tear. Pt is having moderage urinary leakage, and random drops of leakage. If thinks she has to go, she is not able to wait to void. She leaks with sneezing or coughing. Struggles to move quickly due to excessive mobilty of joints causing soreness of joints everything aches. Pt is currently . At 6 wks physician follow-up with her director web, she was found to have her bladder had descended. Her vaginal incisions se was told have healed. 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 Developmental History Developmental History Gestational: Diabetes, HTN, and reflux at week 16. Her HTN and reflux has normalized, but she still has type II diabetes. During preganancy: 2 placenta abruptions, Vaginal with vacuum.. 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 Current Functional Impairments (Reported) Functional Limitations- ADL's Urinary leakage with laughing, sneezing, coughing, General joint pains with movement. Functional Limitations- Mobility/Gait Goes sideways down stairs because of weakness and doesn' t feel safe. 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 Hypermobile joints; therefore sitting still for > 5 minutes she has fear of joints moving too much increasing her risk of falling. Couple of times concerned of falling because body isn't moving. PT-OP-C Subjective Start: 08/26/21 17:47 Freq: Status: Active Protocol: Document 08/27/21 11:30 LRN (Rec: 08/27/21 12:29 LRN [id number]) Patient Questionnaires Pelvic Pain and Urgency/Frequency Patient Symptom Scale Pelvic Pain Score 9 PT-OP-I Pelvic Floor Start: 08/26/21 17:47 Freq: Status: Active Protocol: Document 08/27/21 11:30 LRN (Rec: 08/27/21 12:29 LRN [id number]) Pelvic Floor Assessment Urine Pelvic Floor Surgery Yes: Grade 2 tear repaired Urinary Symptoms Urge Sensation,Prolapse Leakage Cause Cough,Lifting,Sneeze,Urge Leaks Per Day 2 Voiding Frequency 5 Nocturia 2 Pads Used In 24 Hours 1 Urine Pad Type Panty Liner Bowel Bowel Symptoms Constipation Other Bowel Symptoms Constipated after . Since childbearing taking fiber; therefore no current constipation. Bowel Movement Frequency 1x/day or 1x/1.5 days. Hinds Stool Chart Type 1-7 4 Pelvic Clock Pelvic Clock 3-6 Tenderness Pelvic Clock 6-9 Tenderness Pelvic Clock 9-12 Tenderness Pelvic Clock Other Most tender at Pelvic Clock 3, 6, 9, 10. Prolapse Cystocele Grade 2 Perineal Descent Bearing Present Contraction Ability Voluntary Contraction Weak Voluntary Relaxation Weak Manual Muscle Testing Left 2 Manual Muscle Testing Right 2 Manual Muscle Testing Posterior 2 Muscle Endurance (Seconds) 7 Number of Quick Contractions In 10 0 Seconds Comments Pelvic Floor Comments Not able to palpate Quick Flick muscles. Long hold muscle strength is at least 2/5. No visible clitoral nod is present, a weak anal wink is present. PT-OP-J Posture/Palpation/Skin Start: 08/26/21 17:47 Freq: Status: Active Protocol: Document 08/27/21 11:30 LRN (Rec: 08/27/21 12:29 LRN [id number]) Posture Evaluation Position Standing Head/C-Spine Posture Forward Head L-Spine Posture Increased Lordosis Knee Posture (L) Genu Valgus,(R) Genu Valgus Comments Posture Comments Dowagers hump with decreased upper thoracic curvature. Pt demonstrated poor posturing (slumped in chair) with in sitting. Palpation Assessment Location ABdomen Palpation Location Diastasis Rectus Palpation Details Umbilicus Above: 1 1.5 finger width, 2 above closed. Below: Appears closed although pt bulged in abdomen with trunk flexion in supine. PT-OP-K Range of Motion Start: 08/26/21 17:47 Freq: Status: Active Protocol: Document 08/27/21 11:30 LRN (Rec: 08/27/21 12:29 LRN [id number]) Lumbar Spine Range of Motion Lumbar Spine Active Degrees Testing Position Standing Flexion 75 Extension 25 Rotation Left 20 Rotation Right 30 Lateral Flexion Left 15 Lateral Flexion Right 17 ROM Limitations Soft Tissue Tightness,Muscle Weakness,Pain Comments Trunk flexion is with 45 deg's hip flexion Trunk extension is with 10 deg 's hip extension Hip Goniometric Range of Motion Hip Right Passive Testing Position Supine Abduction 30 Internal Rotation 15 External Rotation 75 Left Passive Testing Position Supine Abduction 45 Internal Rotation 20 External Rotation 70 PT-OP-M Strength Start: 08/26/21 17:47 Freq: Status: Active Protocol: Document 08/27/21 11:30 LRN (Rec: 08/27/21 12:29 LRN [id number]) Hip Strength Hip Manual Muscle Testing Right Extension (S1) 3+ Fair+ Comments Generally 5/5 except as indicated above. Left Extension (S1) 3+ Fair+ External Rotation 3 Fair Comments Generally 5/5 except as indicated above. PT-OP-Q Treatments Start: 08/26/21 17:47 Freq: Status: Active Protocol: Document 08/27/21 11:30 LRN (Rec: 08/27/21 12:29 LRN [id number]) Self-Care/Home Management Treatment Education Other Education Discussed results of evaluation, goals, and plan of care (POC). Pt agreeable to goals and POC. Pt educated in use of Bladder Diary and I/S in tracking for 1 week. Discussed use of 2 different diaries for tracking of bladder. Activities Self-Care/Home Management Activities Issued, discussed, & reviewed Bladder Diary for pt to complete over the next 7 days. Explained how to fill out diary and counting of urination times. Issued & reviewed HEP: Kegels ex's for Quick Flicks, Long Holds. PT-OP-T Assessment and Plan Start: 08/26/21 17:47 Freq: Status: Active Protocol: Document 08/27/21 11:30 LRN (Rec: 08/27/21 12:29 LRN [id number]) Physical Therapy Assessment Rehab Potential Rehabilitation Potential Good Evaluation Complexity Number of Personal Factors/Comorbidities 1-2 Number of Body Systems Impaired 4 or More Clinical Presentation at Evaluation Evolving Impairments Impairments Pain,ROM,Strength Other Impairments Urinary leakage with laugh, cough, sneeze. Goals Five Impairment Urge incontinence in the presences of a strong urge. Short Term Goal (STG) Pt will be educated in Urge deference technique STG Duration 09/06/21 Penitentiary Goal (LTG) Pt will be able to remain continent in the presence of a strong urge. LTG Duration 11/25/21 Four Impairment Pain with palp at 3, 6, 9 of PF Clock Short Term Goal (STG) Pt will be educated in PF stretches. STG Duration 09/06/21 Penitentiary Goal (LTG) No pelvic pain with palpation LTG Duration 11/25/21 Three Impairment Pt has difficulty sustaining a Long Hold PF contraction for 10 secs Impairment (Initial: Long Hold 7 secs) Short Term Goal (STG) Pt will be able to perform a PF contraction in the absence of abdominal/gluteal muscles and hold for 5 secs. STG Duration 09/13/21 Penitentiary Goal (LTG) Pt will improve PF endurance of holding 10 secs prior to fatigue and to improve strength to 3/5, with pt able to lift objects without onset of urinary leakage. LTG Duration 11/25/21 Two Impairment Urinary incontinence with a strong cough, sneeze or with laughing. Impairment Initial Quick Flick 0-1 rep Short Term Goal (STG) Improve PF Quick Flick strength with pt able to perform Quick contractions of 5 reps prior to fatigue. STG Duration 10/12/21 Ict Quality Assurance Engineer Goal (LTG) Improve PF strength, of Quick Flicks to 3/5 strength, and ability to perform 10 quick flicks prior to fatigue. Pt will be able to maintain continence in the presence of a strong cough, sneeze and with sudden laughing. LTG Duration 11/25/21 One Impairment Pt lacks appropriate self care HEP Short Term Goal (STG) Pt will be independent with a HEP of hip stretches and PF/TA /hip strengthening STG Duration 09/26/21 Penitentiary Goal (LTG) Pt will be independent in a self care HEP for PF strengthening. LTG Duration 11/25/21 Assessment Summary Assessment Pt presents with mixed urinary incontinence with stress urinary incontinence being her primary problem. She has no visible clitoral nod indicating weakness of her anterior pelvic floor (PF) muscles and mild anal weak, indicating weakness posteriorly. With palpation she demonstrates no significant quick flick contractions and is fair with long holding muscles with help of her substitute muscles ( gluteal, abdominal and hip AD muscles). She has tenderness in pelvic clock 3, 6 & 9, probably hindering her PF strength. Stress urinary incontinence appears to be her main problem, but urge incontinence is also present. The pt is expected to have a prolonged recovery due to her continued and hindrance from hormonal changes post , and her planning on being away for some time during the holidays. The pt will benefit from skilled physical therapy to achieve the above stated goals . Physical Therapy Plan Frequency and Duration Frequency of Treatment 1x/Week Plan of Care Start Date 08/27/21 Plan of Care End Date 11/25/21 Therapeutic Interventions Therapeutic Interventions Home Exercise Program,Joint Mobilizations,Manual Therapy, Neuromuscular Re-education, Patient/Caregiver Education, Self-Care/Home Management,Soft Tissue Mobilization,Taping, Therapeutic Activities, Therapeutic Exercises Modalities Cold Pack/Ice Massage,Electric Stimulation,Hot Packs Next Visit Focus/Plan Next Note Type Treatment Note Next Visit Plan Assess trunk strength, reassess PF strength, Review bladder diary, pt education in proper Kegel without use of substitute muscles and in strengthening of aggrevators, Assess & Correct for open pattern. Pt education in proper vulvar/ genital care, deep breathing and transfers, PF/core/hip strengthening, improve hip mobility, improve abdominal soft tissue (bladder) mobility , discuss foods, and water intake. Discuss bowel function relating to urinary leakage, Check proper breathing. When appropriate, start TA strengthening, K-taping for DR (above umbilicus), discuss & educate pt in proper squatting and lifting, sit to stand, and moving in bed using breathwork and core/PF stabilization for proper abdominal pressure system, teach proper isolated Kegels for pelvic stabilization, STM of abdomen (and urachus), bladder. Manual therapy for PF pain areas.
--- NOTE | 2021-09-03 16:24 | PT.OTN ---
Current Diagnoses Postural lordosis, lumbar region (09/03/21) Muscle weakness (generalized) (09/03/21) Mixed incontinence (09/03/21) Urethrocele (09/03/21) Physical Therapy Treatment Note PT-OP-A Visit Information Start: 08/26/21 17:47 Freq: Status: Active Protocol: Document 09/03/21 08:17 LRN (Rec: 09/03/21 09:02 LRN [id number]) Out-Patient Physical Therapy Visit Information Visit Information Visit Type Treatment Note Visit Start Time 08:16 Visit Stop Time 08:56 Total Visit Minutes 40 Visit Number 2 Evaluation Information Evaluation Date 08/27/21 Precautions Precautions Diabetes type II PT-OP-B Current Condition Start: 08/26/21 17:47 Freq: Status: Active Protocol: Document 08/27/21 11:30 LRN (Rec: 08/27/21 12:29 LRN [id number]) Current Condition History of Current Condition Onset Date 05/26/21 Current Complaints Urinary leakage with sneeze or cough and general joint achiness. History of Current Condition Pt is 12 weeks s/p childbirth. Onset of urinary leakage since of son with 58 hour labor suffering a 2nd degree tear. Pt is having moderage urinary leakage, and random drops of leakage. If thinks she has to go, she is not able to wait to void. She leaks with sneezing or coughing. Struggles to move quickly due to excessive mobilty of joints causing soreness of joints everything aches. Pt is currently . At 6 wks physician follow-up with her prestidigitator, she was found to have her bladder had descended. Her vaginal incisions [facility] was told have healed. 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 Developmental History Developmental History Gestational: Diabetes, HTN, and reflux at week 16. Her HTN and reflux has normalized, but she still has type II diabetes. During preganancy: 2 placenta abruptions, Vaginal with vacuum.. 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 Current Functional Impairments (Reported) Functional Limitations- ADL's Urinary leakage with laughing, sneezing, coughing, General joint pains with movement. Functional Limitations- Mobility/Gait Goes sideways down stairs because of weakness and doesn' t feel safe. 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 Hypermobile joints; therefore sitting still for > 5 minutes she has fear of joints moving too much increasing her risk of falling. Couple of times concerned of falling because body isn't moving. PT-OP-C Subjective Start: 08/26/21 17:47 Freq: Status: Active Protocol: Document 09/03/21 08:17 LRN (Rec: 09/03/21 09:02 LRN [id number]) OP-PT Subjective Patient Comments Patient Comments LB/hips/knees always stiff. Leaks a little during the day even with no urge (1-2 drops). Changes underwear 1-2x/day. Urinary times 4-14 secs. Waking consistently 1x at night btn 2- 4, and on wake up time 6-8a, nighttime 6-11p ( not consistent during evening. PT-OP-I Pelvic Floor Start: 08/26/21 17:47 Freq: Status: Active Protocol: Document 09/03/21 08:17 LRN (Rec: 09/03/21 09:02 LRN [id number]) Pelvic Floor Assessment Pelvic Clock Pelvic Clock Other Tenderness Pelvic Clock 1-2 and 10-11. Prolapse Cystocele Grade 2 Prolapse Comments Assessed in supine. Bladder dropped in over 1/2 distance of Vaginal canal, but not extending beyond hymen location. Contraction Ability Voluntary Contraction Moderate Voluntary Relaxation Weak Number of Quick Contractions In 10 0 Seconds Comments Pelvic Floor Comments PF Superficial Ms: strength: 0/5 except at PF Clock 1-2 O' Clock is 2/5. PF Deep Ms: strength: PF Clock 12-7 O'Clock is 0/5, 7- 10 O'Clock 2/5, 10-11 O'clock is 1/5. Endurance: Superficial: Not able to feel lift contraction. Deep Ms contraction hold through 10 secs with progressive weakening and use of substitute muscles to maintain squeeze. PT-OP-J Posture/Palpation/Skin Start: 08/26/21 17:47 Freq: Status: Active Protocol: Document 08/27/21 11:30 LRN (Rec: 08/27/21 12:29 LRN [id number]) Posture Evaluation Position Standing Head/C-Spine Posture Forward Head L-Spine Posture Increased Lordosis Knee Posture (L) Genu Valgus,(R) Genu Valgus Comments Posture Comments Dowagers hump with decreased upper thoracic curvature. Pt demonstrated poor posturing (slumped in chair) with in sitting. Palpation Assessment Location ABdomen Palpation Location Diastasis Rectus Palpation Details Umbilicus Above: 1 1.5 finger width, 2 above closed. Below: Appears closed although pt bulged in abdomen with trunk flexion in supine. PT-OP-K Range of Motion Start: 08/26/21 17:47 Freq: Status: Active Protocol: Document 08/27/21 11:30 LRN (Rec: 08/27/21 12:29 LRN [id number]) Lumbar Spine Range of Motion Lumbar Spine Active Degrees Testing Position Standing Flexion 75 Extension 25 Rotation Left 20 Rotation Right 30 Lateral Flexion Left 15 Lateral Flexion Right 17 ROM Limitations Soft Tissue Tightness,Muscle Weakness,Pain Comments Trunk flexion is with 45 deg's hip flexion Trunk extension is with 10 deg 's hip extension Hip Goniometric Range of Motion Hip Right Passive Testing Position Supine Abduction 30 Internal Rotation 15 External Rotation 75 Left Passive Testing Position Supine Abduction 45 Internal Rotation 20 External Rotation 70 PT-OP-M Strength Start: 08/26/21 17:47 Freq: Status: Active Protocol: Document 08/27/21 11:30 LRN (Rec: 08/27/21 12:29 LRN [id number]) Hip Strength Hip Manual Muscle Testing Right Extension (S1) 3+ Fair+ Comments Generally 5/5 except as indicated above. Left Extension (S1) 3+ Fair+ External Rotation 3 Fair Comments Generally 5/5 except as indicated above. PT-OP-Q Treatments Start: 08/26/21 17:47 Freq: Status: Active Protocol: Document 09/03/21 08:17 LRN (Rec: 09/03/21 09:02 LRN [id number]) Therapeutic Exercises Supine Exercises PF contraction Supine Exercise Name PF contraction training for posterior and anterior contractons Equipment Used Wedge & Bolster Reps/Minutes 9' Comments Training on & off wedge/ bolster LE Roll in/outs w/DB/PF Supine Exercise Name LE roll in/out w/DB, then LE roll in/out w/DB/PF on inhale Equipment Used Wedge & Bolster Reps/Minutes 10' Comments Much Cuing for coordinating movement of ex Deep Breathing Supine Exercise Name Belly Breathing Equipment Used Wedge & Bolster Reps/Minutes 2' Comments Cuing for belly breathing Self-Care/Home Management Treatment Education Other Education Discussed pt's recall of her bladder diary. Pt noticed she isn't drinking enough water. Discussed at length urination frequency, drinking frequency, changes to daily routine to improve compliance. Educated pt in use of deep breathing with LE roll in (5 reps) and another 5 reps with both roll in & out. Activities Self-Care/Home Management Activities Issued & reviewed HEP: LE roll in/out with PF contraction on breath/roll out . PT-OP-T Assessment and Plan Start: 08/26/21 17:47 Freq: Status: Active Protocol: Document 09/03/21 08:17 LRN (Rec: 09/03/21 09:02 LRN [id number]) Physical Therapy Assessment Goals Five Impairment Urge incontinence in the presences of a strong urge. Short Term Goal (STG) Pt will be educated in Urge deference technique STG Duration 09/06/21 Point Of Care Technician Goal (LTG) Pt will be able to remain continent in the presence of a strong urge. LTG Duration 11/25/21 Four Impairment Pain with palp at 3, 6, 9 of PF Clock Short Term Goal (STG) Pt will be educated in PF stretches. STG Duration 09/06/21 Retirement Goal (LTG) No pelvic pain with palpation LTG Duration 11/25/21 Three Impairment Pt has difficulty sustaining a Long Hold PF contraction for 10 secs Impairment (Initial: Long Hold 7 secs) Short Term Goal (STG) Pt will be able to perform a PF contraction in the absence of abdominal/gluteal muscles and hold for 5 secs. STG Duration 09/13/21 Retirement Goal (LTG) Pt will improve PF endurance of holding 10 secs prior to fatigue and to improve strength to 3/5, with pt able to lift objects without onset of urinary leakage. LTG Duration 11/25/21 Two Impairment Urinary incontinence with a strong cough, sneeze or with laughing. Impairment Initial Quick Flick 0-1 rep Short Term Goal (STG) Improve PF Quick Flick strength with pt able to perform Quick contractions of 5 reps prior to fatigue. STG Duration 10/12/21 Point Of Care Technician Goal (LTG) Improve PF strength, of Quick Flicks to 3/5 strength, and ability to perform 10 quick flicks prior to fatigue. Pt will be able to maintain continence in the presence of a strong cough, sneeze and with sudden laughing. LTG Duration 11/25/21 One Impairment Pt lacks appropriate self care HEP Short Term Goal (STG) Pt will be independent with a HEP of hip stretches and PF/TA /hip strengthening STG Duration 09/26/21 Retirement Goal (LTG) Pt will be independent in a self care HEP for PF strengthening. LTG Duration 11/25/21 Assessment Summary Assessment Pt uses substitute muscles when performing a PF contraction. She has no palpable superficial PF ms contraction but has deep PF muscle contraction with assist from her substitue muscles. She will need to use substitute muscles to gain PF strength to start, but she feels she is able to feel her PF contract. Her tissues are red in coloration at the vaginal opening inside the labia majora/minora and she has gapping of perineum at rest. Her PF pain may be more due to skin irritation vs. PF tightness. Pt is very receptive to manual therapy if needed. Pt has had difficulty with drinking enough fluids; therefore her outer tissues of the PF appear somewhat dry. Pt has general weakness of her PF and cystocele. Physical Therapy Plan Frequency and Duration Frequency of Treatment 1x/Week Plan of Care Start Date 08/27/21 Plan of Care End Date 11/25/21 Next Visit Focus/Plan Next Note Type Treatment Note Next Visit Plan Assess trunk strength, Consider EMG Biofeedback if no infections s/p 8 weeks birthing for healing purpose. Review bladder diary, pt education in proper Kegel without use of substitute muscles and in strengthening of aggrevators, Educate pt in Urinary delay technique. Assess & Correct for open pattern. Pt education in proper vulvar/ genital care, deep breathing and transfers, PF/core/hip strengthening, improve hip mobility, improve abdominal soft tissue (bladder) mobility , discuss foods, and water intake. Discuss bowel function relating to urinary leakage, Check proper breathing. When appropriate, start TA strengthening, K-taping for DR (above umbilicus), discuss & educate pt in proper squatting and lifting, sit to stand, and moving in bed using breathwork and core/PF stabilization for proper abdominal pressure system, teach proper isolated Kegels for pelvic stabilization, STM of abdomen (and urachus), bladder. Manual therapy for PF pain areas.
--- NOTE | 2021-09-13 14:43 | PT.OTN ---
Current Diagnoses Postural lordosis, lumbar region (09/13/21) Muscle weakness (generalized) (09/13/21) Mixed incontinence (09/13/21) Urethrocele (09/13/21) Physical Therapy Treatment Note PT-OP-A Visit Information Start: 08/26/21 17:47 Freq: Status: Active Protocol: Document 09/13/21 13:35 LRN (Rec: 09/13/21 14:41 LRN [id number]) Out-Patient Physical Therapy Visit Information Visit Information Visit Type Treatment Note Visit Start Time 13:35 Visit Stop Time 14:13 Total Visit Minutes 38 Visit Number 3 Evaluation Information Evaluation Date 08/27/21 Precautions Precautions Diabetes type II PT-OP-B Current Condition Start: 08/26/21 17:47 Freq: Status: Active Protocol: Document 08/27/21 11:30 LRN (Rec: 08/27/21 12:29 LRN [id number]) Current Condition History of Current Condition Onset Date 05/26/21 Current Complaints Urinary leakage with sneeze or cough and general joint achiness. History of Current Condition Pt is 12 weeks s/p childbirth. Onset of urinary leakage since of son with 58 hour labor suffering a 2nd degree tear. Pt is having moderage urinary leakage, and random drops of leakage. If thinks she has to go, she is not able to wait to void. She leaks with sneezing or coughing. Struggles to move quickly due to excessive mobilty of joints causing soreness of joints everything aches. Pt is currently . At 6 wks physician follow-up with her [employer], she was found to have her bladder had descended. Her vaginal incisions [facility] was told have healed. 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 Prior Treatments and Tests Street Openings Inspector Nina said bladder had descended. Developmental History Developmental History Gestational: Diabetes, HTN, and reflux at week 16. Her HTN and reflux has normalized, but she still has type II diabetes. During preganancy: 2 placenta abruptions, Vaginal with vacuum.. 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 Current Functional Impairments (Reported) Functional Limitations- ADL's Urinary leakage with laughing, sneezing, coughing, General joint pains with movement. Functional Limitations- Mobility/Gait Goes sideways down stairs because of weakness and doesn' t feel safe. 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 Hypermobile joints; therefore sitting still for > 5 minutes she has fear of joints moving too much increasing her risk of falling. Couple of times concerned of falling because body isn't moving. PT-OP-C Subjective Start: 08/26/21 17:47 Freq: Status: Active Protocol: Document 09/13/21 13:35 LRN (Rec: 09/13/21 14:41 LRN [id number]) OP-PT Subjective Patient Comments Patient Comments Pt is 3 months post-. States she leaks a little throughout the day, not always knowing when she leaks, and sometimes notices that there is a smell. PT-OP-I Pelvic Floor Start: 08/26/21 17:47 Freq: Status: Active Protocol: Document 09/13/21 13:35 LRN (Rec: 09/13/21 14:41 LRN [id number]) Pelvic Floor Assessment SEMG (uV) Baseline 0.7 Quick Contraction 5.4 10 Second Contraction 3.1 Recruitment Pattern Fair Relaxation Good Holding Fair Stability of Hold Fair SEMG Stability of Rest Good Comments Pelvic Floor Comments Qiuick Flicks (in microVolts) 10 rep: Avg work 5.4 /Avg rest 2.6 20 reps: Avg work 5.5, Avg rest 2.6 Long Hold (in microVolts): 10 reps: Avg work 3.5 /Avg rest 1.0 20 reps: Avg work 3.1, Avg rest 1.03 PT-OP-J Posture/Palpation/Skin Start: 08/26/21 17:47 Freq: Status: Active Protocol: Document 08/27/21 11:30 LRN (Rec: 08/27/21 12:29 LRN [id number]) Posture Evaluation Position Standing Head/C-Spine Posture Forward Head L-Spine Posture Increased Lordosis Knee Posture (L) Genu Valgus,(R) Genu Valgus Comments Posture Comments Dowagers hump with decreased upper thoracic curvature. Pt demonstrated poor posturing (slumped in chair) with in sitting. Palpation Assessment Location ABdomen Palpation Location Diastasis Rectus Palpation Details Umbilicus Above: 1 1.5 finger width, 2 above closed. Below: Appears closed although pt bulged in abdomen with trunk flexion in supine. PT-OP-K Range of Motion Start: 08/26/21 17:47 Freq: Status: Active Protocol: Document 08/27/21 11:30 LRN (Rec: 08/27/21 12:29 LRN [id number]) Lumbar Spine Range of Motion Lumbar Spine Active Degrees Testing Position Standing Flexion 75 Extension 25 Rotation Left 20 Rotation Right 30 Lateral Flexion Left 15 Lateral Flexion Right 17 ROM Limitations Soft Tissue Tightness,Muscle Weakness,Pain Comments Trunk flexion is with 45 deg's hip flexion Trunk extension is with 10 deg 's hip extension Hip Goniometric Range of Motion Hip Right Passive Testing Position Supine Abduction 30 Internal Rotation 15 External Rotation 75 Left Passive Testing Position Supine Abduction 45 Internal Rotation 20 External Rotation 70 PT-OP-M Strength Start: 08/26/21 17:47 Freq: Status: Active Protocol: Document 08/27/21 11:30 LRN (Rec: 08/27/21 12:29 LRN [id number]) Hip Strength Hip Manual Muscle Testing Right Extension (S1) 3+ Fair+ Comments Generally 5/5 except as indicated above. Left Extension (S1) 3+ Fair+ External Rotation 3 Fair Comments Generally 5/5 except as indicated above. PT-OP-Q Treatments Start: 08/26/21 17:47 Freq: Status: Active Protocol: Document 09/13/21 13:35 LRN (Rec: 09/13/21 14:41 LRN [id number]) Therapeutic Exercises Supine Exercises PF Quick Flicks Supine Exercise Name Quick Flicks Reps/Minutes 9' (20 reps) Comments EMG assessment PF Long Holds Supine Exercise Name Long Holds Reps/Minutes 14' (20 reps) Comments EMG assessment Hip IR stretch Supine Exercise Name Piriformis - quick teaching with RLE Side bilateral Equipment Used 1' Reps/Minutes Quick Hold for instructions Hip ER stretch Supine Exercise Name Fig 4 stretch - quick teaching with RLE Side bilateral Equipment Used 1' Reps/Minutes Quick Hold for instructions LE Roll in/outs w/DB/PF Supine Exercise Name LE roll in/out w/DB, then LE roll in/out w/DB/PF on inhale Equipment Used Wedge & Bolster Reps/Minutes 3' Comments Quick Review Self-Care/Home Management Treatment Education Other Education Reviewed and discussed bladder diary. Educated and trained pt in urge deference techique. Activities Self-Care/Home Management Activities Issued urge deference technique. I/S pt in hip ER/IR stretch ( fig 4 & Piriformis stretch). PT-OP-T Assessment and Plan Start: 08/26/21 17:47 Freq: Status: Active Protocol: Document 09/13/21 13:35 LRN (Rec: 09/13/21 14:41 LRN [id number]) Physical Therapy Assessment Goals Five Impairment Urge incontinence in the presences of a strong urge. Short Term Goal (STG) Pt will be educated in Urge deference technique STG Duration 09/06/21 (09/13/21: MET GOAL) Senior Living Goal (LTG) Pt will be able to remain continent in the presence of a strong urge. LTG Duration 11/25/21 Four Impairment Pain with palp at 3, 6, 9 of PF Clock Short Term Goal (STG) Pt will be educated in PF stretches. STG Duration 09/06/21 Senior Living Goal (LTG) No pelvic pain with palpation LTG Duration 11/25/21 Three Impairment Pt has difficulty sustaining a Long Hold PF contraction for 10 secs Impairment (Initial: Long Hold 7 secs) Short Term Goal (STG) Pt will be able to perform a PF contraction in the absence of abdominal/gluteal muscles and hold for 5 secs. STG Duration 09/13/21 Senior Living Goal (LTG) Pt will improve PF endurance of holding 10 secs prior to fatigue and to improve strength to 3/5, with pt able to lift objects without onset of urinary leakage. LTG Duration 11/25/21 Two Impairment Urinary incontinence with a strong cough, sneeze or with laughing. Impairment Initial Quick Flick 0-1 rep Short Term Goal (STG) Improve PF Quick Flick strength with pt able to perform Quick contractions of 5 reps prior to fatigue. STG Duration 10/12/21 Senior Living Goal (LTG) Improve PF strength, of Quick Flicks to 3/5 strength, and ability to perform 10 quick flicks prior to fatigue. Pt will be able to maintain continence in the presence of a strong cough, sneeze and with sudden laughing. LTG Duration 11/25/21 One Impairment Pt lacks appropriate self care HEP Short Term Goal (STG) Pt will be independent with a HEP of hip stretches and PF/TA /hip strengthening STG Duration 09/26/21 Advanced Manufacturing Technician Goal (LTG) Pt will be independent in a self care HEP for PF strengthening. LTG Duration 11/25/21 Progress Towards Goals Progress Comments Progressed pt education on urge deference technique, STG #5 MET. Assessment Summary Assessment Per bladder diary the pt's time between voids is very good, but long urination times . She is intermittently leaking and possibly leaking without her awareness. Pt may need EStim to improve sensation and PF contraction awareness. Pt is 12 weeks post ; therefore EMG biofeedback assessment performed. Pt demonstrates weakness of the PF with Quick Flicks (avg work 5.4-5.5 uV's) and Long Holds (3.1-3.5 uV's). She has more consistency of strength of contraction with quick flicks vs long holds. Her endurance stability is good for the first 8-10 reps, then decreases with time. The pt appears to have a good understanding of performing the urge deference technique. Physical Therapy Plan Frequency and Duration Frequency of Treatment 1x/Week Plan of Care Start Date 08/27/21 Plan of Care End Date 11/25/21 Next Visit Focus/Plan Next Note Type Treatment Note Next Visit Plan Assess trunk strength, review urge deference technique and hip stretches (issue HEP: Fig 4 & Piriformis stretch). Add HEP: PF stretches, Pt education in proper Kegel without use of substitute muscles and in strengthening of aggrevators, Assess & Correct for open pattern. Pt education in proper vulvar/ genital care, deep breathing and transfers, PF/core/hip strengthening, improve hip mobility, improve abdominal soft tissue (bladder) mobility , discuss foods, and water intake. Discuss bowel function relating to urinary leakage, Check proper breathing. When appropriate, start TA strengthening, K-taping for DR (above umbilicus), discuss & educate pt in proper squatting and lifting, sit to stand, and moving in bed using breathwork and core/PF stabilization for proper abdominal pressure system, teach proper isolated Kegels for pelvic stabilization, STM of abdomen (and urachus), bladder. Manual therapy for PF pain areas.
--- NOTE | 2021-09-23 16:15 | PT.OTN ---
Current Diagnoses Postural lordosis, lumbar region (09/23/21) Muscle weakness (generalized) (09/23/21) Mixed incontinence (09/23/21) Urethrocele (09/23/21) Physical Therapy Treatment Note PT-OP-A Visit Information Start: 08/26/21 17:47 Freq: Status: Active Protocol: Document 09/23/21 15:07 LRN (Rec: 09/23/21 16:13 LRN [id number]) Out-Patient Physical Therapy Visit Information Visit Information Visit Type Treatment Note Visit Start Time 15:07 Visit Stop Time 15:52 Total Visit Minutes 45 Visit Number 4 Evaluation Information Evaluation Date 08/27/21 Precautions Precautions Diabetes type II PT-OP-B Current Condition Start: 08/26/21 17:47 Freq: Status: Active Protocol: Document 08/27/21 11:30 LRN (Rec: 08/27/21 12:29 LRN [id number]) Current Condition History of Current Condition Onset Date 05/26/21 Current Complaints Urinary leakage with sneeze or cough and general joint achiness. History of Current Condition Pt is 12 weeks s/p childbirth. Onset of urinary leakage since of son with 58 hour labor suffering a 2nd degree tear. Pt is having moderage urinary leakage, and random drops of leakage. If thinks she has to go, she is not able to wait to void. She leaks with sneezing or coughing. Struggles to move quickly due to excessive mobilty of joints causing soreness of joints everything aches. Pt is currently . At 6 wks physician follow-up with her metal bonding helper, she was found to have her bladder had descended. Her vaginal incisions [facility] was told have healed. 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 Prior Treatments and Tests Staffing Specialist Nina said bladder had descended. Developmental History Developmental History Gestational: Diabetes, HTN, and reflux at week 16. Her HTN and reflux has normalized, but she still has type II diabetes. During preganancy: 2 placenta abruptions, Vaginal with vacuum.. 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 Current Functional Impairments (Reported) Functional Limitations- ADL's Urinary leakage with laughing, sneezing, coughing, General joint pains with movement. Functional Limitations- Mobility/Gait Goes sideways down stairs because of weakness and doesn' t feel safe. 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 Hypermobile joints; therefore sitting still for > 5 minutes she has fear of joints moving too much increasing her risk of falling. Couple of times concerned of falling because body isn't moving. PT-OP-C Subjective Start: 08/26/21 17:47 Freq: Status: Active Protocol: Document 09/23/21 15:07 LRN (Rec: 09/23/21 16:13 LRN [id number]) OP-PT Subjective Patient Comments Patient Comments Had to take a trip and carried a heavy bag on back on baby in front. Just got back yesterday. Paid attention to urges and noticed takes ~5 minutes to get moving when sitting and then needing to go to bathroom. PT-OP-I Pelvic Floor Start: 08/26/21 17:47 Freq: Status: Active Protocol: Document 09/13/21 13:35 LRN (Rec: 09/13/21 14:41 LRN [id number]) Pelvic Floor Assessment SEMG (uV) Baseline 0.7 Quick Contraction 5.4 10 Second Contraction 3.1 Recruitment Pattern Fair Relaxation Good Holding Fair Stability of Hold Fair SEMG Stability of Rest Good Comments Pelvic Floor Comments Qiuick Flicks (in microVolts) 10 rep: Avg work 5.4 /Avg rest 2.6 20 reps: Avg work 5.5, Avg rest 2.6 Long Hold (in microVolts): 10 reps: Avg work 3.5 /Avg rest 1.0 20 reps: Avg work 3.1, Avg rest 1.03 PT-OP-J Posture/Palpation/Skin Start: 08/26/21 17:47 Freq: Status: Active Protocol: Document 08/27/21 11:30 LRN (Rec: 08/27/21 12:29 LRN [id number]) Posture Evaluation Position Standing Head/C-Spine Posture Forward Head L-Spine Posture Increased Lordosis Knee Posture (L) Genu Valgus,(R) Genu Valgus Comments Posture Comments Dowagers hump with decreased upper thoracic curvature. Pt demonstrated poor posturing (slumped in chair) with in sitting. Palpation Assessment Location ABdomen Palpation Location Diastasis Rectus Palpation Details Umbilicus Above: 1 1.5 finger width, 2 above closed. Below: Appears closed although pt bulged in abdomen with trunk flexion in supine. PT-OP-K Range of Motion Start: 08/26/21 17:47 Freq: Status: Active Protocol: Document 08/27/21 11:30 LRN (Rec: 08/27/21 12:29 LRN [id number]) Lumbar Spine Range of Motion Lumbar Spine Active Degrees Testing Position Standing Flexion 75 Extension 25 Rotation Left 20 Rotation Right 30 Lateral Flexion Left 15 Lateral Flexion Right 17 ROM Limitations Soft Tissue Tightness,Muscle Weakness,Pain Comments Trunk flexion is with 45 deg's hip flexion Trunk extension is with 10 deg 's hip extension Hip Goniometric Range of Motion Hip Right Passive Testing Position Supine Abduction 30 Internal Rotation 15 External Rotation 75 Left Passive Testing Position Supine Abduction 45 Internal Rotation 20 External Rotation 70 PT-OP-M Strength Start: 08/26/21 17:47 Freq: Status: Active Protocol: Document 08/27/21 11:30 LRN (Rec: 08/27/21 12:29 LRN [id number]) Hip Strength Hip Manual Muscle Testing Right Extension (S1) 3+ Fair+ Comments Generally 5/5 except as indicated above. Left Extension (S1) 3+ Fair+ External Rotation 3 Fair Comments Generally 5/5 except as indicated above. PT-OP-Q Treatments Start: 08/26/21 17:47 Freq: Status: Active Protocol: Document 09/23/21 15:07 LRN (Rec: 09/23/21 16:13 LRN [id number]) Therapeutic Exercises Supine Exercises Resting tone/relax Supine Exercise Name Resting tone with education on effects of body mvmt/laughter Reps/Minutes 3' Comments Resting of 0.9mV's. PF Long Holds Supine Exercise Name Long Holds - Focus on isolating PF & lift of PF Reps/Minutes 10' (20 reps each) Comments EMG Biofeedback strengthening. Sitting Exercises Sit to Stand/breathing/PF Sitting Exercise Name Sit to Stand w/coordinated breathing and PF (Quick Flicks /Long Holds) Reps/Minutes 10x each (20') Comments 10+ secs for full sit to stand and for hip AB/AD x 4 reps. Self-Care/Home Management Treatment Education Other Education 9' Education of Urinary Delay Technique. Activities Self-Care/Home Management Activities Re-Issued & reviewed urge deference technique. Reviewed and issued hip Fig 4 and Piriformis stretch. PT-OP-T Assessment and Plan Start: 08/26/21 17:47 Freq: Status: Active Protocol: Document 09/23/21 15:07 LRN (Rec: 09/23/21 16:13 LRN [id number]) Physical Therapy Assessment Goals Five Impairment Urge incontinence in the presences of a strong urge. Short Term Goal (STG) Pt will be educated in Urge deference technique STG Duration 09/06/21 (09/13/21: MET GOAL) Bag Checker Goal (LTG) Pt will be able to remain continent in the presence of a strong urge. LTG Duration 11/25/21 Four Impairment Pain with palp at 3, 6, 9 of PF Clock Short Term Goal (STG) Pt will be educated in PF stretches. STG Duration 09/06/21 Bag Checker Goal (LTG) No pelvic pain with palpation LTG Duration 11/25/21 Three Impairment Pt has difficulty sustaining a Long Hold PF contraction for 10 secs Impairment (Initial: Long Hold 7 secs) Short Term Goal (STG) Pt will be able to perform a PF contraction in the absence of abdominal/gluteal muscles and hold for 5 secs. (09/23/21: Pt able to recognize doing a PF contraction in abscence of substitute muscles). STG Duration 09/13/21 Detention Goal (LTG) Pt will improve PF endurance of holding 10 secs prior to fatigue and to improve strength to 3/5, with pt able to lift objects without onset of urinary leakage. LTG Duration 11/25/21 Two Impairment Urinary incontinence with a strong cough, sneeze or with laughing. Impairment Initial Quick Flick 0-1 rep Short Term Goal (STG) Improve PF Quick Flick strength with pt able to perform Quick contractions of 5 reps prior to fatigue. STG Duration 10/12/21 Detention Goal (LTG) Improve PF strength, of Quick Flicks to 3/5 strength, and ability to perform 10 quick flicks prior to fatigue. Pt will be able to maintain continence in the presence of a strong cough, sneeze and with sudden laughing. LTG Duration 11/25/21 One Impairment Pt lacks appropriate self care HEP Short Term Goal (STG) Pt will be independent with a HEP of hip stretches and PF/TA /hip strengthening. (09/23/21: HEP: Verbal I/S : Sit to stands for Quick Flicks and for Long Holds - holding sit<>stand and doing hip ER/IR x 4 between bouts of sit<> stand. HEP: Fig 4 and Piriformis stretch). STG Duration 09/26/21 (09/23/21: met for hip stretches) Detention Goal (LTG) Pt will be independent in a self care HEP for PF strengthening. LTG Duration 11/25/21 Assessment Summary Assessment Pt is able to long hold for 4 reps (isolated PF contraction) + 2 holding with gluts prior to notable fatigue with holding. Weak at 3.2 uV's to start, ending in 2.9uV's. Appears to have good understanding of proper breathing with transfers and with PF strengthening in sitting (doing sit roll in/ outs during long hold PF resting period). Physical Therapy Plan Frequency and Duration Frequency of Treatment 1x/Week Plan of Care Start Date 08/27/21 Plan of Care End Date 11/25/21 Next Visit Focus/Plan Next Note Type Treatment Note Next Visit Plan Assess trunk strength, review hip stretches: Fig 4 & Piriformis stretch. Add HEP: PF stretches (Happy Baby Pose), Assess performance of proper Kegel without use of substitute muscles and in strengthening of aggrevators , Assess & Correct for open pattern. Pt education in proper vulvar/ genital care, deep breathing and transfers, PF/core/hip strengthening, improve hip mobility, improve abdominal soft tissue (bladder) mobility , discuss foods, and water intake. Discuss bowel function relating to urinary leakage, Check proper breathing. When appropriate, start TA strengthening, K-taping for DR (above umbilicus), discuss & educate pt in proper squatting and lifting, sit to stand, and moving in bed using breathwork and core/PF stabilization for proper abdominal pressure system, teach proper isolated Kegels for pelvic stabilization, STM of abdomen (and urachus), bladder. Manual therapy for PF pain areas.
--- NOTE | 2021-10-14 13:05 | PT-OP ANOTE ---
Pt DNS. Called and left message of pt's missed appt. Notified pt she has no further appts and requested call back to schedule more, but if pt hasn't called back in a couple weeks, DC from PT is probable.
--- NOTE | 2021-12-06 16:27 | PT-OP ANOTE ---
Per phone conversation pt states she had called in just before the New Year notifying of a fall and her inability to walk. She states she is now able to walk and would like to continue therapy, but will need to modify her ex position due to back and hip pain. Recommended pt call to reschedule 1-2 visits for recheck and new plan of care. Pt agreeable and plans to continue PF rehab.
--- NOTE | 2021-12-17 16:55 | PT.OTN ---
Current Diagnoses Postural lordosis, lumbar region (12/17/21) Muscle weakness (generalized) (12/17/21) Mixed incontinence (12/17/21) Urethrocele (12/17/21) Physical Therapy Treatment Note PT-OP-A Visit Information Start: 08/26/21 17:47 Freq: Status: Active Protocol: Document 12/17/21 13:50 LRN (Rec: 12/17/21 16:53 LRN [id number]) Out-Patient Physical Therapy Visit Information Visit Information Visit Type Progress Note Visit Note , $50 copay Visit Start Time 13:48 Visit Stop Time 14:28 Total Visit Minutes 40 Visit Number 4 Evaluation Information Evaluation Date 08/27/21 Precautions Precautions Diabetes type II, fall resulting in R anterior hip pain. PT-OP-B Current Condition Start: 08/26/21 17:47 Freq: Status: Active Protocol: Document 08/27/21 11:30 LRN (Rec: 08/27/21 12:29 LRN [id number]) Current Condition History of Current Condition Onset Date 05/26/21 Current Complaints Urinary leakage with sneeze or cough and general joint achiness. History of Current Condition Pt is 12 weeks s/p childbirth. Onset of urinary leakage since of son with 58 hour labor suffering a 2nd degree tear. Pt is having moderage urinary leakage, and random drops of leakage. If thinks she has to go, she is not able to wait to void. She leaks with sneezing or coughing. Struggles to move quickly due to excessive mobilty of joints causing soreness of joints everything aches. Pt is currently . At 6 wks physician follow-up with her aviation maintenance instructor, she was found to have her bladder had descended. Her vaginal incisions was told have healed. 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 Prior Treatments and Tests Scanner Operator Nina said bladder had descended. Developmental History Developmental History Gestational: Diabetes, HTN, and reflux at week 16. Her HTN and reflux has normalized, but she still has type II diabetes. During preganancy: 2 placenta abruptions, Vaginal with vacuum.. 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 Current Functional Impairments (Reported) Functional Limitations- ADL's Urinary leakage with laughing, sneezing, coughing, General joint pains with movement. Functional Limitations- Mobility/Gait Goes sideways down stairs because of weakness and doesn' t feel safe. 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 Personal Factors Other Personal Factors That May Effect Pt reported: Therapy/Recovery Owns & works at [employer]. Hypermobile joints; therefore sitting still for > 5 minutes she has fear of joints moving too much increasing her risk of falling. Couple of times concerned of falling because body isn't moving. PT-OP-C Subjective Start: 08/26/21 17:47 Freq: Status: Active Protocol: Document 12/17/21 13:50 LRN (Rec: 12/17/21 16:53 LRN [id number]) OP-PT Subjective Patient Comments Patient Comments States she fell 10/10/22 on concrete, in garage, as she was stepping over object with R leg when fell backwards and bounced off the R side and tumbled onto concrete. The front of the R hip hurts. 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 Pain in anterior R hip (pointing to ASIS). Is planning on going to tow motor mechanic in February because she can't get in sooner. Having main joint pains (hips, knees, lower back , hands and worst is shoulders ). Urinary leakage may be improving, but it may be bacause she isn't drinking enough. Has had only 1 full accidents in the last few months. Now that the weather is getting better, able to dress with less leakage, but may be because she is moving faster. Hip pain is 3-7/10 with general activity. If trying to move hip ou (IER) then pain is 101/10. Can't sit cross legged or sit with baby on floor). Pain rated 6/ 10 after therapy (was 8/10 to start). OP-PT Pain Assessment Pain Assessment Grid Paper Pain Assessment Grid Completed Yes PT-OP-I Pelvic Floor Start: 08/26/21 17:47 Freq: Status: Active Protocol: Document 09/13/21 13:35 LRN (Rec: 09/13/21 14:41 LRN [id number]) Pelvic Floor Assessment SEMG (uV) Baseline 0.7 Quick Contraction 5.4 10 Second Contraction 3.1 Recruitment Pattern Fair Relaxation Good Holding Fair Stability of Hold Fair SEMG Stability of Rest Good Comments Pelvic Floor Comments Qiuick Flicks (in microVolts) 10 rep: Avg work 5.4 /Avg rest 2.6 20 reps: Avg work 5.5, Avg rest 2.6 Long Hold (in microVolts): 10 reps: Avg work 3.5 /Avg rest 1.0 20 reps: Avg work 3.1, Avg rest 1.03 PT-OP-J Posture/Palpation/Skin Start: 08/26/21 17:47 Freq: Status: Active Protocol: Document 12/17/21 13:50 LRN (Rec: 12/17/21 16:53 LRN [id number]) Palpation Assessment Location Inferior angle of Pubic Bone Palpation Location R Pub inferior angle Palpation Details Decreased superior glide mobility. L Ischial Tub Palpation Location L Ischial tub for PA in prone. Palpation Details Decreased PA mobility Sacrum Palpation Location Sacrum Palpation Details Sacrum in L rotation and sidebent R with decreased mobility with L Sacral sulcus inferior glide and VAMSI with PA mob in prone. PT-OP-K Range of Motion Start: 08/26/21 17:47 Freq: Status: Active Protocol: Document 08/27/21 11:30 LRN (Rec: 08/27/21 12:29 LRN [id number]) Lumbar Spine Range of Motion Lumbar Spine Active Degrees Testing Position Standing Flexion 75 Extension 25 Rotation Left 20 Rotation Right 30 Lateral Flexion Left 15 Lateral Flexion Right 17 ROM Limitations Soft Tissue Tightness,Muscle Weakness,Pain Comments Trunk flexion is with 45 deg's hip flexion Trunk extension is with 10 deg 's hip extension Hip Goniometric Range of Motion Hip Right Passive Testing Position Supine Abduction 30 Internal Rotation 15 External Rotation 75 Left Passive Testing Position Supine Abduction 45 Internal Rotation 20 External Rotation 70 PT-OP-M Strength Start: 08/26/21 17:47 Freq: Status: Active Protocol: Document 12/17/21 13:50 LRN (Rec: 12/17/21 16:53 LRN [id number]) Trunk Strength Trunk Manual Muscle Testing Rotation Left 2 Poor Rotation Right 2 Poor Core Stabilization Pt not able to perform a TA contraction in lower abdomen ( umbilicus and below). PT-OP-Q Treatments Start: 08/26/21 17:47 Freq: Status: Active Protocol: Document 12/17/21 13:50 LRN (Rec: 12/17/21 16:53 LRN [id number]) Therapeutic Exercises Supine Exercises TA tightening Supine Exercise Name TA tightening without and with breath exhale Reps/Minutes 3' PF Quick Flicks Supine Exercise Name Quick Flicks Equipment Used Wedge Reps/Minutes 3' PF Long Holds Supine Exercise Name Long Holds Equipment Used Wedge Reps/Minutes 5' Manual Therapy Treatment Soft Tissue Mobilization Inferior angle of Pubic Bone Body Location Inferior Pubs Mobilization Type Sustained Pressure Intensity/Depth Moderate Body Position Supine Comments Treatment with glove x 2. L Ischial Tub Body Location L Ischial Tuberosity Mobilization Type Sustained Pressure Intensity/Depth Moderate Body Position Prone Comments Prone position w/pillow under chest and ankles. L ischial tuberosity PA pressure to improve PA mobility. Sacrum Body Location Sacrum Mobilization Type Sustained Pressure Intensity/Depth Moderate Body Position Prone Comments Prone position w/pillow under chest and ankles. RX: Correction to improve mobility for: L Sacral inferior glide, L VAMSI PA glide to correct a L rotation Self-Care/Home Management Treatment Education Patient Education Body Mechanics Other Education Pt educated in log roll transfer in/out of bed with abdominal tightening. Activities Self-Care/Home Management Activities Pt I/S in TA tightening of lower abdomen ex with breath exhalation. Pt to mobilize with symmetry of LE's and with weightbearing and proper transfer on/off bed. PT-OP-T Assessment and Plan Start: 08/26/21 17:47 Freq: Status: Active Protocol: Document 12/17/21 13:50 LRN (Rec: 12/17/21 16:53 LRN [id number]) Physical Therapy Assessment Rehab Potential Rehabilitation Potential Good Evaluation Complexity Number of Personal Factors/Comorbidities 1-2 Number of Body Systems Impaired 4 or More Clinical Presentation at Evaluation Evolving Impairments Impairments Activity Tolerance,Functional Mobility,Pain,Posture,ROM,Soft Tissue Mobility,Strength, Transfers Goals Six Impairment R hip pain rated 4-9/10 Impairment At rest pain is 4/10, with activity pain is 7-9/10. Short Term Goal (STG) Decrease R hip pain to no more than 4/10 with activity. STG Duration 01/31/22 Long-Term Goal (LTG) Decrease R hip pain to 0-1/10 at rest with modification to her sitting as needed, and with activity. LTG Duration 03/17/22 Five Impairment Urge incontinence in the presences of a strong urge. Short Term Goal (STG) Pt will be educated in Urge deference technique STG Duration 09/06/21 (09/13/21: MET GOAL) Security Operations Analyst Goal (LTG) Pt will be able to remain continent in the presence of a strong urge. (12/17/21: 85% of the time able to maintain continence) LTG Duration 03/17/22 (12/17/21: Progressed ) Four Impairment Pain with palp at 3, 6, 9 of PF Clock Short Term Goal (STG) Pt will be educated in PF stretches. (12/17/21: Not able to do due to hip pain since fall ) STG Duration 01/31/22 Long-Term Goal (LTG) No pelvic pain with palpation LTG Duration 03/17/22 Three Impairment Pt has difficulty sustaining a Long Hold PF contraction for 10 secs Impairment (Initial: Long Hold 7 secs) Short Term Goal (STG) Pt will be able to perform a PF contraction in the absence of abdominal/gluteal muscles and hold for 5 secs. (09/23/21: Pt able to recognize doing a PF contraction in abscence of substitute muscles). STG Duration 01/31/22 Security Operations Analyst Goal (LTG) Pt will improve PF endurance of holding 10 secs prior to fatigue and to improve strength to 3/5, with pt able to lift objects without onset of urinary leakage. LTG Duration 03/17/22 Two Impairment Urinary incontinence with a strong cough, sneeze or with laughing. Impairment Initial Quick Flick 0-1 rep Short Term Goal (STG) Improve PF Quick Flick strength with pt able to perform Quick contractions of 5 reps prior to fatigue. STG Duration 01/31/22 Long-Term Goal (LTG) Improve PF strength, of Quick Flicks to 3/5 strength, and ability to perform 10 quick flicks prior to fatigue. Pt will be able to maintain continence in the presence of a strong cough, sneeze and with sudden laughing. LTG Duration 03/17/22 One Impairment Pt lacks appropriate self care HEP Short Term Goal (STG) Pt will be independent with a HEP of hip stretches and PF/TA /hip strengthening. (09/23/21: HEP: Verbal I/S : Sit to stands for Quick Flicks and for Long Holds - holding sit<>stand and doing hip ER/IR x 4 between bouts of sit<> stand. HEP: Fig 4 and Piriformis stretch). STG Duration 01/31/22 (09/23/21: met for hip stretches) Long-Term Goal (LTG) Pt will be independent in a self care HEP for PF strengthening. LTG Duration 03/17/22 Progress Towards Goals Progress Towards Goals Slow Progress due to Activity Tolerance,Slow Progress due to Attendance Issues,Slow Progress due to Medical Issues Assessment Summary Assessment Pt presents today with minimal improvement in her urinary continence after being gone since 09/23/22. Pt had suffered a fall and has not been able to attend therapy due to severe hip pain with walking, and safely concern of her LE's giving out. She is currently having a problem with pain in major joints ( worst is shoulders) and is being tested for rheumatism. She states the concern is whether her pain is from rheumatism or . She has not been able to do ex's, except Kegels, since the fall. Palpable pain is at the anterior hips (ASIS') pain . She has had fear of going down stairs because of concern that her leg will give out, especially if carrying her baby. Baby weighs 16#. The pt demonstrates a posteriorly rotated R innominate, L rotated and R sidebent sacrum, and an open pattern. She has poor core stability and is not able to tighen her lower TA without breath exhalation. Pt today responded well to manual therapy to improve pelvic alignment and decrease hipo pain from 8/10 to 6/10. At rest her hip pain is 4/10. The pt will benefit from skilled pelvic rehabilitation as well as skilled physical therapy for her R hip pain since the fall. She will need to lessen her R hip pain in order to tolerate further pelvic floor ex's and core stabilization. Physical Therapy Plan Frequency and Duration Frequency of Treatment 1x/Week Plan of Care Start Date 12/17/21 Plan of Care End Date 01/31/22 Therapeutic Interventions Therapeutic Interventions Aquatic Therapy,Home Exercise Program,Joint Mobilizations, Manual Therapy,Neuromuscular Re-education,Patient/Caregiver Education,Self-Care/Home Management,Soft Tissue Mobilization,Taping, Therapeutic Exercises Modalities Cold Pack/Ice Massage,Electric Stimulation,Hot Packs Next Visit Focus/Plan Next Note Type Progress Note Next Visit Plan Assess response to manual therapy of last session. Assess trunk strength, review hip stretches: Fig 4 & Piriformis stretch. Stabilize pelvis, core ( internal rotators) and progress PF strengthening, Assess performance of proper Kegel without use of substitute muscles and in strengthening of aggrevators. Correct for open pattern . When tolerated, add HEP: PF stretches (Happy Baby Pose), Pt education in proper vulvar/ genital care, deep breathing and transfers, PF/core/hip strengthening, improve hip mobility, improve abdominal soft tissue (bladder) mobility , discuss foods, and water intake. Discuss bowel function relating to urinary leakage, Check proper breathing. When appropriate, start TA strengthening, K-taping for DR (above umbilicus), discuss & educate pt in proper squatting and lifting, sit to stand, and moving in bed using breathwork and core/PF stabilization for proper abdominal pressure system, teach proper isolated Kegels for pelvic stabilization, STM of abdomen (and urachus), bladder. Manual therapy for PF pain areas.
--- NOTE | 2021-12-17 17:04 | PT.OTN ---
Current Diagnoses Pain in right hip (12/17/21) Postural lordosis, lumbar region (12/17/21) Muscle weakness (generalized) (12/17/21) Mixed incontinence (12/17/21) Urethrocele (12/17/21) Physical Therapy Treatment Note PT-OP-A Visit Information Start: 08/26/21 17:47 Freq: Status: Active Protocol: Document 12/17/21 13:50 LRN (Rec: 12/17/21 16:53 LRN [id number]) Out-Patient Physical Therapy Visit Information Visit Information Visit Type Progress Note Visit Note , $50 copay Visit Start Time 13:48 Visit Stop Time 14:28 Total Visit Minutes 40 Visit Number 4 Evaluation Information Evaluation Date 08/27/21 Precautions Precautions Diabetes type II, fall resulting in R anterior hip pain. PT-OP-B Current Condition Start: 08/26/21 17:47 Freq: Status: Active Protocol: Document 08/27/21 11:30 LRN (Rec: 08/27/21 12:29 LRN [id number]) Current Condition History of Current Condition Onset Date 05/26/21 Current Complaints Urinary leakage with sneeze or cough and general joint achiness. History of Current Condition Pt is 12 weeks s/p childbirth. Onset of urinary leakage since of son with 58 hour labor suffering a 2nd degree tear. Pt is having moderage urinary leakage, and random drops of leakage. If thinks she has to go, she is not able to wait to void. She leaks with sneezing or coughing. Struggles to move quickly due to excessive mobilty of joints causing soreness of joints everything aches. Pt is currently . 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 Her vaginal incisions was told have healed. 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 Developmental History Developmental History Gestational: Diabetes, HTN, and reflux at week 16. Her HTN and reflux has normalized, but she still has type II diabetes. During preganancy: 2 placenta abruptions, Vaginal with vacuum.. 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 Current Functional Impairments (Reported) Functional Limitations- ADL's Urinary leakage with laughing, sneezing, coughing, General joint pains with movement. Functional Limitations- Mobility/Gait Goes sideways down stairs because of weakness and doesn' t feel safe. 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 Hypermobile joints; therefore sitting still for > 5 minutes she has fear of joints moving too much increasing her risk of falling. Couple of times concerned of falling because body isn't moving. PT-OP-C Subjective Start: 08/26/21 17:47 Freq: Status: Active Protocol: Document 12/17/21 13:50 LRN (Rec: 12/17/21 16:53 LRN [id number]) OP-PT Subjective Patient Comments Patient Comments States she fell 10/10/22 on concrete, in garage, as she was stepping over object with R leg when fell backwards and bounced off the R side and tumbled onto concrete. The front of the R hip hurts. 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 Pain in anterior R hip (pointing to ASIS). Is planning on going to rag washer in February because she can't get in sooner. Having main joint pains (hips, knees, lower back , hands and worst is shoulders ). Urinary leakage may be improving, but it may be bacause she isn't drinking enough. Has had only 1 full accidents in the last few months. Now that the weather is getting better, able to dress with less leakage, but may be because she is moving faster. Hip pain is 3-7/10 with general activity. If trying to move hip ou (IER) then pain is 101/10. Can't sit cross legged or sit with baby on floor). Pain rated 6/ 10 after therapy (was 8/10 to start). Patient Questionnaires Lower Extremity Functional Scale LEFS Score 26 LEFS Impairment 80 to 99% Impaired (Score 1-16 ) Pelvic Pain and Urgency/Frequency Patient Symptom Scale Pelvic Pain Score 8 OP-PT Pain Assessment Pain Assessment Grid Paper Pain Assessment Grid Completed Yes Location R hip Pain Location Details R ASIS and lateral hip Intensity 9 Scale Used Numeric (0 - 10) PT-OP-I Pelvic Floor Start: 08/26/21 17:47 Freq: Status: Active Protocol: Document 09/13/21 13:35 LRN (Rec: 09/13/21 14:41 LRN [id number]) Pelvic Floor Assessment SEMG (uV) Baseline 0.7 Quick Contraction 5.4 10 Second Contraction 3.1 Recruitment Pattern Fair Relaxation Good Holding Fair Stability of Hold Fair SEMG Stability of Rest Good Comments Pelvic Floor Comments Qiuick Flicks (in microVolts) 10 rep: Avg work 5.4 /Avg rest 2.6 20 reps: Avg work 5.5, Avg rest 2.6 Long Hold (in microVolts): 10 reps: Avg work 3.5 /Avg rest 1.0 20 reps: Avg work 3.1, Avg rest 1.03 PT-OP-J Posture/Palpation/Skin Start: 08/26/21 17:47 Freq: Status: Active Protocol: Document 12/17/21 13:50 LRN (Rec: 12/17/21 16:53 LRN [id number]) Palpation Assessment Location Inferior angle of Pubic Bone Palpation Location R Pub inferior angle Palpation Details Decreased superior glide mobility. L Ischial Tub Palpation Location L Ischial tub for PA in prone. Palpation Details Decreased PA mobility Sacrum Palpation Location Sacrum Palpation Details Sacrum in L rotation and sidebent R with decreased mobility with L Sacral sulcus inferior glide and VAMSI with PA mob in prone. PT-OP-K Range of Motion Start: 08/26/21 17:47 Freq: Status: Active Protocol: Document 08/27/21 11:30 LRN (Rec: 08/27/21 12:29 LRN [id number]) Lumbar Spine Range of Motion Lumbar Spine Active Degrees Testing Position Standing Flexion 75 Extension 25 Rotation Left 20 Rotation Right 30 Lateral Flexion Left 15 Lateral Flexion Right 17 ROM Limitations Soft Tissue Tightness,Muscle Weakness,Pain Comments Trunk flexion is with 45 deg's hip flexion Trunk extension is with 10 deg 's hip extension Hip Goniometric Range of Motion Hip Right Passive Testing Position Supine Abduction 30 Internal Rotation 15 External Rotation 75 Left Passive Testing Position Supine Abduction 45 Internal Rotation 20 External Rotation 70 PT-OP-M Strength Start: 08/26/21 17:47 Freq: Status: Active Protocol: Document 12/17/21 13:50 LRN (Rec: 12/17/21 16:53 LRN [id number]) Trunk Strength Trunk Manual Muscle Testing Rotation Left 2 Poor Rotation Right 2 Poor Core Stabilization Pt not able to perform a TA contraction in lower abdomen ( umbilicus and below). PT-OP-Q Treatments Start: 08/26/21 17:47 Freq: Status: Active Protocol: Document 12/17/21 13:50 LRN (Rec: 12/17/21 16:53 LRN [id number]) Therapeutic Exercises Supine Exercises TA tightening Supine Exercise Name TA tightening without and with breath exhale Reps/Minutes 3' PF Quick Flicks Supine Exercise Name Quick Flicks Equipment Used Wedge Reps/Minutes 3' PF Long Holds Supine Exercise Name Long Holds Equipment Used Wedge Reps/Minutes 5' Manual Therapy Treatment Soft Tissue Mobilization Inferior angle of Pubic Bone Body Location Inferior Pubs Mobilization Type Sustained Pressure Intensity/Depth Moderate Body Position Supine Comments Treatment with glove x 2. L Ischial Tub Body Location L Ischial Tuberosity Mobilization Type Sustained Pressure Intensity/Depth Moderate Body Position Prone Comments Prone position w/pillow under chest and ankles. L ischial tuberosity PA pressure to improve PA mobility. Sacrum Body Location Sacrum Mobilization Type Sustained Pressure Intensity/Depth Moderate Body Position Prone Comments Prone position w/pillow under chest and ankles. RX: Correction to improve mobility for: L Sacral inferior glide, L VAMSI PA glide to correct a L rotation Self-Care/Home Management Treatment Education Patient Education Body Mechanics Other Education Pt educated in log roll transfer in/out of bed with abdominal tightening. Activities Self-Care/Home Management Activities Pt I/S in TA tightening of lower abdomen ex with breath exhalation. Pt to mobilize with symmetry of LE's and with weightbearing and proper transfer on/off bed. PT-OP-T Assessment and Plan Start: 08/26/21 17:47 Freq: Status: Active Protocol: Document 12/17/21 13:50 LRN (Rec: 12/17/21 16:53 N [id number]) Physical Therapy Assessment Rehab Potential Rehabilitation Potential Good Evaluation Complexity Number of Personal Factors/Comorbidities 1-2 Number of Body Systems Impaired 4 or More Clinical Presentation at Evaluation Evolving Impairments Impairments Activity Tolerance,Functional Mobility,Pain,Posture,ROM,Soft Tissue Mobility,Strength, Transfers Goals Six Impairment R hip pain rated 4-9/10 Impairment At rest pain is 4/10, with activity pain is 7-9/10. LEFS is 16 (80-99% impaired) Short Term Goal (STG) Decrease R hip pain to no more than 4/10 with activity. STG Duration 01/31/22 Water Pollution Control Inspector Goal (LTG) Decrease R hip pain to 0-1/10 at rest with modification to her sitting as needed, and with activity. LTG Duration 03/17/22 Five Impairment Urge incontinence in the presences of a strong urge. Short Term Goal (STG) Pt will be educated in Urge deference technique STG Duration 09/06/21 (09/13/21: MET GOAL) Intermediate Goal (LTG) Pt will be able to remain continent in the presence of a strong urge. (12/17/21: 85% of the time able to maintain continence) LTG Duration 03/17/22 (12/17/21: Progressed ) Four Impairment Pain with palp at 3, 6, 9 of PF Clock Short Term Goal (STG) Pt will be educated in PF stretches. (12/17/21: Not able to do due to hip pain since fall ) STG Duration 01/31/22 Water Pollution Control Inspector Goal (LTG) No pelvic pain with palpation LTG Duration 03/17/22 Three Impairment Pt has difficulty sustaining a Long Hold PF contraction for 10 secs Impairment (Initial: Long Hold 7 secs) Short Term Goal (STG) Pt will be able to perform a PF contraction in the absence of abdominal/gluteal muscles and hold for 5 secs. (09/23/21: Pt able to recognize doing a PF contraction in abscence of substitute muscles). STG Duration 01/31/22 Water Pollution Control Inspector Goal (LTG) Pt will improve PF endurance of holding 10 secs prior to fatigue and to improve strength to 3/5, with pt able to lift objects without onset of urinary leakage. LTG Duration 03/17/22 Two Impairment Urinary incontinence with a strong cough, sneeze or with laughing. Impairment Initial Quick Flick 0-1 rep Short Term Goal (STG) Improve PF Quick Flick strength with pt able to perform Quick contractions of 5 reps prior to fatigue. STG Duration 01/31/22 Water Pollution Control Inspector Goal (LTG) Improve PF strength, of Quick Flicks to 3/5 strength, and ability to perform 10 quick flicks prior to fatigue. Pt will be able to maintain continence in the presence of a strong cough, sneeze and with sudden laughing. LTG Duration 03/17/22 One Impairment Pt lacks appropriate self care HEP Short Term Goal (STG) Pt will be independent with a HEP of hip stretches and PF/TA /hip strengthening. (09/23/21: HEP: Verbal I/S : Sit to stands for Quick Flicks and for Long Holds - holding sit<>stand and doing hip ER/IR x 4 between bouts of sit<> stand. HEP: Fig 4 and Piriformis stretch). STG Duration 01/31/22 (09/23/21: met for hip stretches) Water Pollution Control Inspector Goal (LTG) Pt will be independent in a self care HEP for PF strengthening. LTG Duration 03/17/22 Progress Towards Goals Progress Towards Goals Slow Progress due to Activity Tolerance,Slow Progress due to Attendance Issues,Slow Progress due to Medical Issues Assessment Summary Assessment Pt presents today with minimal improvement in her urinay continence after being gone since 09/23/22. Pt had suffered a fall and has not been able to attend therapy due to severe hip pain with walking, and safely concern of her LE's giving out. She is currently having a problem with pain in major joints ( worst is shoulders) and is being tested for rheumatism. She states the concern is whether her pain is from rheumatism or . She has not been able to do ex's, except Kegels, since the fall. Palpable pain is at the anterior hips (ASIS') pain . She has had fear of going down stairs because of concern that her leg will give out, especially if carrying her baby. Baby weighs 16#. The pt demonstrates a posteriorly rotated R innominate, L rotated and R sidebent sacrum, and an open pattern. She has poor core stability and is not able to tighen her lower TA without breath exhalation. Pt today responded well to manual therapy to improve pelvic alignment and decrease hipo pain from 8/10 to 6/10. At rest her hip pain is 4/10. The pt will benefit from skilled pelvic rehabilitation as well as skilled physical therapy for her R hip pain since the fall. She will need to lessen her R hip pain in order to tolerate further pelvic floor ex's and core stabilization. Physical Therapy Plan Frequency and Duration Frequency of Treatment 1x/Week Plan of Care Start Date 12/17/21 Plan of Care End Date 01/31/22 Therapeutic Interventions Therapeutic Interventions Aquatic Therapy,Home Exercise Program,Joint Mobilizations, Manual Therapy,Neuromuscular Re-education,Patient/Caregiver Education,Self-Care/Home Management,Soft Tissue Mobilization,Taping, Therapeutic Exercises Modalities Cold Pack/Ice Massage,Electric Stimulation,Hot Packs Next Visit Focus/Plan Next Note Type Progress Note Next Visit Plan Assess response to manual therapy of last session. Assess trunk strength, review hip stretches: Fig 4 & Piriformis stretch. Stabilize pelvis, core ( internal rotators) and progress PF strengthening, Assess performance of proper Kegel without use of substitute muscles and in strengthening of aggrevators. Correct for open pattern . When tolerated, add HEP: PF stretches (Happy Baby Pose), Pt education in proper vulvar/ genital care, deep breathing and transfers, PF/core/hip strengthening, improve hip mobility, improve abdominal soft tissue (bladder) mobility , discuss foods, and water intake. Discuss bowel function relating to urinary leakage, Check proper breathing. When appropriate, start TA strengthening, K-taping for DR (above umbilicus), discuss & educate pt in proper squatting and lifting, sit to stand, and moving in bed using breathwork and core/PF stabilization for proper abdominal pressure system, teach proper isolated Kegels for pelvic stabilization, STM of abdomen (and urachus), bladder. Manual therapy for PF pain areas.
--- NOTE | 2021-12-17 17:06 | PT.OTN ---
Current Diagnoses Pain in right hip (12/17/21) Postural lordosis, lumbar region (12/17/21) Muscle weakness (generalized) (12/17/21) Mixed incontinence (12/17/21) Urethrocele (12/17/21) Physical Therapy Treatment Note PT-OP-A Visit Information Start: 08/26/21 17:47 Freq: Status: Active Protocol: Document 12/17/21 13:50 LRN (Rec: 12/17/21 16:53 LRN [id number]) Out-Patient Physical Therapy Visit Information Visit Information Visit Type Progress Note Visit Note , $50 copay Visit Start Time 13:48 Visit Stop Time 14:28 Total Visit Minutes 40 Visit Number 4 Evaluation Information Evaluation Date 08/27/21 Precautions Precautions Diabetes type II, fall resulting in R anterior hip pain. PT-OP-B Current Condition Start: 08/26/21 17:47 Freq: Status: Active Protocol: Document 08/27/21 11:30 LRN (Rec: 08/27/21 12:29 LRN [id number]) Current Condition History of Current Condition Onset Date 05/26/21 Current Complaints Urinary leakage with sneeze or cough and general joint achiness. History of Current Condition Pt is 12 weeks s/p childbirth. Onset of urinary leakage since of son with 58 hour labor suffering a 2nd degree tear. Pt is having moderage urinary leakage, and random drops of leakage. If thinks she has to go, she is not able to wait to void. She leaks with sneezing or coughing. Struggles to move quickly due to excessive mobilty of joints causing soreness of joints everything aches. Pt is currently . 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 Her vaginal incisions was told have healed. 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 Prior Treatments and Tests Hearing Consultant Nina said bladder had descended. Developmental History Developmental History Gestational: Diabetes, HTN, and reflux at week 16. Her HTN and reflux has normalized, but she still has type II diabetes. During preganancy: 2 placenta abruptions, Vaginal with vacuum.. 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 Current Functional Impairments (Reported) Functional Limitations- ADL's Urinary leakage with laughing, sneezing, coughing, General joint pains with movement. Functional Limitations- Mobility/Gait Goes sideways down stairs because of weakness and doesn' t feel safe. 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 Personal Factors Other Personal Factors That May Effect Pt reported: Therapy/Recovery Owns & works at [employer]. Hypermobile joints; therefore sitting still for > 5 minutes she has fear of joints moving too much increasing her risk of falling. Couple of times concerned of falling because body isn't moving. PT-OP-C Subjective Start: 08/26/21 17:47 Freq: Status: Active Protocol: Document 12/17/21 13:50 LRN (Rec: 12/17/21 16:53 LRN [id number]) OP-PT Subjective Patient Comments Patient Comments States she fell 10/10/22 on concrete, in garage, as she was stepping over object with R leg when fell backwards and bounced off the R side and tumbled onto concrete. The front of the R hip hurts. Currently has R front hip pain and can't orange picker the R foot to put shoe on. Pain in anterior R hip (pointing to ASIS). 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 Having main joint pains (hips, knees, lower back , hands and worst is shoulders ). Urinary leakage may be improving, but it may be bacause she isn't drinking enough. Has had only 1 full accidents in the last few months. Now that the weather is getting better, able to dress with less leakage, but may be because she is moving faster. Hip pain is 3-7/10 with general activity. If trying to move hip ou (IER) then pain is 101/10. Can't sit cross legged or sit with baby on floor). Pain rated 6/ 10 after therapy (was 8/10 to start). Patient Questionnaires Lower Extremity Functional Scale LEFS Score 26 LEFS Impairment 80 to 99% Impaired (Score 1-16 ) Pelvic Pain and Urgency/Frequency Patient Symptom Scale Pelvic Pain Score 8 OP-PT Pain Assessment Pain Assessment Grid Paper Pain Assessment Grid Completed Yes Location R hip Pain Location Details R ASIS and lateral hip Intensity 9 Scale Used Numeric (0 - 10) PT-OP-I Pelvic Floor Start: 08/26/21 17:47 Freq: Status: Active Protocol: Document 09/13/21 13:35 LRN (Rec: 09/13/21 14:41 LRN [id number]) Pelvic Floor Assessment SEMG (uV) Baseline 0.7 Quick Contraction 5.4 10 Second Contraction 3.1 Recruitment Pattern Fair Relaxation Good Holding Fair Stability of Hold Fair SEMG Stability of Rest Good Comments Pelvic Floor Comments Qiuick Flicks (in microVolts) 10 rep: Avg work 5.4 /Avg rest 2.6 20 reps: Avg work 5.5, Avg rest 2.6 Long Hold (in microVolts): 10 reps: Avg work 3.5 /Avg rest 1.0 20 reps: Avg work 3.1, Avg rest 1.03 PT-OP-J Posture/Palpation/Skin Start: 08/26/21 17:47 Freq: Status: Active Protocol: Document 12/17/21 13:50 LRN (Rec: 12/17/21 16:53 LRN [id number]) Palpation Assessment Location Inferior angle of Pubic Bone Palpation Location R Pub inferior angle Palpation Details Decreased superior glide mobility. L Ischial Tub Palpation Location L Ischial tub for PA in prone. Palpation Details Decreased PA mobility Sacrum Palpation Location Sacrum Palpation Details Sacrum in L rotation and sidebent R with decreased mobility with L Sacral sulcus inferior glide and VAMSI with PA mob in prone. PT-OP-K Range of Motion Start: 08/26/21 17:47 Freq: Status: Active Protocol: Document 08/27/21 11:30 LRN (Rec: 08/27/21 12:29 LRN [id number]) Lumbar Spine Range of Motion Lumbar Spine Active Degrees Testing Position Standing Flexion 75 Extension 25 Rotation Left 20 Rotation Right 30 Lateral Flexion Left 15 Lateral Flexion Right 17 ROM Limitations Soft Tissue Tightness,Muscle Weakness,Pain Comments Trunk flexion is with 45 deg's hip flexion Trunk extension is with 10 deg 's hip extension Hip Goniometric Range of Motion Hip Right Passive Testing Position Supine Abduction 30 Internal Rotation 15 External Rotation 75 Left Passive Testing Position Supine Abduction 45 Internal Rotation 20 External Rotation 70 PT-OP-M Strength Start: 08/26/21 17:47 Freq: Status: Active Protocol: Document 12/17/21 13:50 LRN (Rec: 12/17/21 16:53 LRN [id number]) Trunk Strength Trunk Manual Muscle Testing Rotation Left 2 Poor Rotation Right 2 Poor Core Stabilization Pt not able to perform a TA contraction in lower abdomen ( umbilicus and below). PT-OP-Q Treatments Start: 08/26/21 17:47 Freq: Status: Active Protocol: Document 12/17/21 13:50 LRN (Rec: 12/17/21 16:53 LRN [id number]) Therapeutic Exercises Supine Exercises TA tightening Supine Exercise Name TA tightening without and with breath exhale Reps/Minutes 3' PF Quick Flicks Supine Exercise Name Quick Flicks Equipment Used Wedge Reps/Minutes 3' PF Long Holds Supine Exercise Name Long Holds Equipment Used Wedge Reps/Minutes 5' Manual Therapy Treatment Soft Tissue Mobilization Inferior angle of Pubic Bone Body Location Inferior Pubs Mobilization Type Sustained Pressure Intensity/Depth Moderate Body Position Supine Comments Treatment with glove x 2. L Ischial Tub Body Location L Ischial Tuberosity Mobilization Type Sustained Pressure Intensity/Depth Moderate Body Position Prone Comments Prone position w/pillow under chest and ankles. L ischial tuberosity PA pressure to improve PA mobility. Sacrum Body Location Sacrum Mobilization Type Sustained Pressure Intensity/Depth Moderate Body Position Prone Comments Prone position w/pillow under chest and ankles. RX: Correction to improve mobility for: L Sacral inferior glide, L VAMSI PA glide to correct a L rotation Self-Care/Home Management Treatment Education Patient Education Body Mechanics Other Education Pt educated in log roll transfer in/out of bed with abdominal tightening. Activities Self-Care/Home Management Activities Pt I/S in TA tightening of lower abdomen ex with breath exhalation. Pt to mobilize with symmetry of LE's and with weightbearing and proper transfer on/off bed. PT-OP-T Assessment and Plan Start: 08/26/21 17:47 Freq: Status: Active Protocol: Document 12/17/21 13:50 LRN (Rec: 12/17/21 16:53 N [id number]) Physical Therapy Assessment Rehab Potential Rehabilitation Potential Good Evaluation Complexity Number of Personal Factors/Comorbidities 1-2 Number of Body Systems Impaired 4 or More Clinical Presentation at Evaluation Evolving Impairments Impairments Activity Tolerance,Functional Mobility,Pain,Posture,ROM,Soft Tissue Mobility,Strength, Transfers Goals Six Impairment R hip pain rated 4-9/10 Impairment At rest pain is 4/10, with activity pain is 7-9/10. LEFS is 16 (80-99% impaired) Short Term Goal (STG) Decrease R hip pain to no more than 4/10 with activity. STG Duration 01/31/22 Metal Casting Trades Worker Goal (LTG) Decrease R hip pain to 0-1/10 at rest with modification to her sitting as needed, and with activity. LTG Duration 03/17/22 Five Impairment Urge incontinence in the presences of a strong urge. Short Term Goal (STG) Pt will be educated in Urge deference technique STG Duration 09/06/21 (09/13/21: MET GOAL) Care Home Goal (LTG) Pt will be able to remain continent in the presence of a strong urge. (12/17/21: 85% of the time able to maintain continence) LTG Duration 03/17/22 (12/17/21: Progressed ) Four Impairment Pain with palp at 3, 6, 9 of PF Clock Short Term Goal (STG) Pt will be educated in PF stretches. (12/17/21: Not able to do due to hip pain since fall ) STG Duration 01/31/22 Metal Casting Trades Worker Goal (LTG) No pelvic pain with palpation LTG Duration 03/17/22 Three Impairment Pt has difficulty sustaining a Long Hold PF contraction for 10 secs Impairment (Initial: Long Hold 7 secs) Short Term Goal (STG) Pt will be able to perform a PF contraction in the absence of abdominal/gluteal muscles and hold for 5 secs. (09/23/21: Pt able to recognize doing a PF contraction in abscence of substitute muscles). STG Duration 01/31/22 Metal Casting Trades Worker Goal (LTG) Pt will improve PF endurance of holding 10 secs prior to fatigue and to improve strength to 3/5, with pt able to lift objects without onset of urinary leakage. LTG Duration 03/17/22 Two Impairment Urinary incontinence with a strong cough, sneeze or with laughing. Impairment Initial Quick Flick 0-1 rep Short Term Goal (STG) Improve PF Quick Flick strength with pt able to perform Quick contractions of 5 reps prior to fatigue. STG Duration 01/31/22 Metal Casting Trades Worker Goal (LTG) Improve PF strength, of Quick Flicks to 3/5 strength, and ability to perform 10 quick flicks prior to fatigue. Pt will be able to maintain continence in the presence of a strong cough, sneeze and with sudden laughing. LTG Duration 03/17/22 One Impairment Pt lacks appropriate self care HEP Short Term Goal (STG) Pt will be independent with a HEP of hip stretches and PF/TA /hip strengthening. (09/23/21: HEP: Verbal I/S : Sit to stands for Quick Flicks and for Long Holds - holding sit<>stand and doing hip ER/IR x 4 between bouts of sit<> stand. HEP: Fig 4 and Piriformis stretch). STG Duration 01/31/22 (09/23/21: met for hip stretches) Metal Casting Trades Worker Goal (LTG) Pt will be independent in a self care HEP for PF strengthening. LTG Duration 03/17/22 Progress Towards Goals Progress Towards Goals Slow Progress due to Activity Tolerance,Slow Progress due to Attendance Issues,Slow Progress due to Medical Issues Assessment Summary Assessment Pt presents today with minimal improvement in her urinay continence after being gone since 09/23/22. Pt had suffered a fall and has not been able to attend therapy due to severe hip pain with walking, and safely concern of her LE's giving out. She is currently having a problem with pain in major joints ( worst is shoulders) and is being tested for rheumatism. She states the concern is whether her pain is from rheumatism or . She has not been able to do ex's, except Kegels, since the fall. Palpable pain is at the anterior hips (ASIS') pain . She has had fear of going down stairs because of concern that her leg will give out, especially if carrying her baby. Baby weighs 16#. The pt demonstrates a posteriorly rotated R innominate, L rotated and R sidebent sacrum, and an open pattern. She has poor core stability and is not able to tighen her lower TA without breath exhalation. Pt today responded well to manual therapy to improve pelvic alignment and decrease hipo pain from 8/10 to 6/10. At rest her hip pain is 4/10. The pt will benefit from skilled pelvic rehabilitation as well as skilled physical therapy for her R hip pain since the fall. She will need to lessen her R hip pain in order to tolerate further pelvic floor ex's and core stabilization. Physical Therapy Plan Frequency and Duration Frequency of Treatment 1x/Week Plan of Care Start Date 12/17/21 Plan of Care End Date 03/17/22 Therapeutic Interventions Therapeutic Interventions Aquatic Therapy,Home Exercise Program,Joint Mobilizations, Manual Therapy,Neuromuscular Re-education,Patient/Caregiver Education,Self-Care/Home Management,Soft Tissue Mobilization,Taping, Therapeutic Exercises Modalities Cold Pack/Ice Massage,Electric Stimulation,Hot Packs Next Visit Focus/Plan Next Note Type Progress Note Next Visit Plan Assess response to manual therapy of last session. Assess trunk strength, review hip stretches: Fig 4 & Piriformis stretch. Stabilize pelvis, core ( internal rotators) and progress PF strengthening, Assess performance of proper Kegel without use of substitute muscles and in strengthening of aggrevators. Correct for open pattern . When tolerated, add HEP: PF stretches (Happy Baby Pose), Pt education in proper vulvar/ genital care, deep breathing and transfers, PF/core/hip strengthening, improve hip mobility, improve abdominal soft tissue (bladder) mobility , discuss foods, and water intake. Discuss bowel function relating to urinary leakage, Check proper breathing. When appropriate, start TA strengthening, K-taping for DR (above umbilicus), discuss & educate pt in proper squatting and lifting, sit to stand, and moving in bed using breathwork and core/PF stabilization for proper abdominal pressure system, teach proper isolated Kegels for pelvic stabilization, STM of abdomen (and urachus), bladder. Manual therapy for PF pain areas.
--- NOTE | 2021-12-30 14:58 | PT.OTN ---
Current Diagnoses Pain in right hip (12/30/21) Postural lordosis, lumbar region (12/30/21) Muscle weakness (generalized) (12/30/21) Mixed incontinence (12/30/21) Urethrocele (12/30/21) Physical Therapy Treatment Note PT-OP-A Visit Information Start: 08/26/21 17:47 Freq: Status: Active Protocol: Document 12/30/21 13:52 LRN (Rec: 12/30/21 14:51 LRN [id number]) Out-Patient Physical Therapy Visit Information Visit Information Visit Type Treatment Note Visit Start Time 13:52 Visit Stop Time 14:33 Total Visit Minutes 41 Visit Number 5 Evaluation Information Evaluation Date 08/27/21 Precautions Precautions Diabetes type II, fall resulting in R anterior hip pain. PT-OP-B Current Condition Start: 08/26/21 17:47 Freq: Status: Active Protocol: Document 08/27/21 11:30 LRN (Rec: 08/27/21 12:29 LRN [id number]) Current Condition History of Current Condition Onset Date 05/26/21 Current Complaints Urinary leakage with sneeze or cough and general joint achiness. History of Current Condition Pt is 12 weeks s/p childbirth. Onset of urinary leakage since of son with 58 hour labor suffering a 2nd degree tear. Pt is having moderage urinary leakage, and random drops of leakage. If thinks she has to go, she is not able to wait to void. She leaks with sneezing or coughing. Struggles to move quickly due to excessive mobilty of joints causing soreness of joints everything aches. Pt is currently . At 6 wks physician follow-up with her case packer, she was found to have her bladder had descended. Her vaginal incisions was told have healed. 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 Prior Treatments and Tests Whe[employer] Department Operator Nina said bladder had descended. Developmental History Developmental History Gestational: Diabetes, HTN, and reflux at week 16. Her HTN and reflux has normalized, but she still has type II diabetes. During preganancy: 2 placenta abruptions, Vaginal with vacuum.. 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 Current Functional Impairments (Reported) Functional Limitations- ADL's Urinary leakage with laughing, sneezing, coughing, General joint pains with movement. Functional Limitations- Mobility/Gait Goes sideways down stairs because of weakness and doesn' t feel safe. 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 Hypermobile joints; therefore sitting still for > 5 minutes she has fear of joints moving too much increasing her risk of falling. Couple of times concerned of falling because body isn't moving. PT-OP-C Subjective Start: 08/26/21 17:47 Freq: Status: Active Protocol: Document 12/30/21 13:52 LRN (Rec: 12/30/21 14:51 LRN [id number]) OP-PT Subjective Patient Comments Patient Comments States the last session she felt great and for a day or two felt weird, but has improved in pain management ( not having sharp pains and her leg feels stronger. OP-PT Pain Assessment Pain Assessment Grid Paper Pain Assessment Grid Completed No Location R hip Pain Location Details R groin Intensity 0 Scale Used Numeric (0 - 10) Comments Pain Comments ASIS bilaterally are sensitive . No discussion of R lateral hip. PT-OP-I Pelvic Floor Start: 08/26/21 17:47 Freq: Status: Active Protocol: Document 09/13/21 13:35 LRN (Rec: 09/13/21 14:41 LRN [id number]) Pelvic Floor Assessment SEMG (uV) Baseline 0.7 Quick Contraction 5.4 10 Second Contraction 3.1 Recruitment Pattern Fair Relaxation Good Holding Fair Stability of Hold Fair SEMG Stability of Rest Good Comments Pelvic Floor Comments Qiuick Flicks (in microVolts) 10 rep: Avg work 5.4 /Avg rest 2.6 20 reps: Avg work 5.5, Avg rest 2.6 Long Hold (in microVolts): 10 reps: Avg work 3.5 /Avg rest 1.0 20 reps: Avg work 3.1, Avg rest 1.03 PT-OP-J Posture/Palpation/Skin Start: 08/26/21 17:47 Freq: Status: Active Protocol: Document 12/17/21 13:50 LRN (Rec: 12/17/21 16:53 LRN [id number]) Palpation Assessment Location Inferior angle of Pubic Bone Palpation Location R Pub inferior angle Palpation Details Decreased superior glide mobility. L Ischial Tub Palpation Location L Ischial tub for PA in prone. Palpation Details Decreased PA mobility Sacrum Palpation Location Sacrum Palpation Details Sacrum in L rotation and sidebent R with decreased mobility with L Sacral sulcus inferior glide and VAMSI with PA mob in prone. PT-OP-K Range of Motion Start: 08/26/21 17:47 Freq: Status: Active Protocol: Document 08/27/21 11:30 LRN (Rec: 08/27/21 12:29 LRN [id number]) Lumbar Spine Range of Motion Lumbar Spine Active Degrees Testing Position Standing Flexion 75 Extension 25 Rotation Left 20 Rotation Right 30 Lateral Flexion Left 15 Lateral Flexion Right 17 ROM Limitations Soft Tissue Tightness,Muscle Weakness,Pain Comments Trunk flexion is with 45 deg's hip flexion Trunk extension is with 10 deg 's hip extension Hip Goniometric Range of Motion Hip Right Passive Testing Position Supine Abduction 30 Internal Rotation 15 External Rotation 75 Left Passive Testing Position Supine Abduction 45 Internal Rotation 20 External Rotation 70 PT-OP-M Strength Start: 08/26/21 17:47 Freq: Status: Active Protocol: Document 12/17/21 13:50 LRN (Rec: 12/17/21 16:53 LRN [id number]) Trunk Strength Trunk Manual Muscle Testing Rotation Left 2 Poor Rotation Right 2 Poor Core Stabilization Pt not able to perform a TA contraction in lower abdomen ( umbilicus and below). PT-OP-Q Treatments Start: 08/26/21 17:47 Freq: Status: Active Protocol: Document 12/30/21 13:52 LRN (Rec: 12/30/21 14:51 LRN [id number]) Therapeutic Exercises Supine Exercises Bridging Supine Exercise Name Bridging Reps/Minutes 15x Comments V cuing to keep TA tight GS Supine Exercise Name GS Reps/Minutes 5 H x 15 Comments Holding cuing TA tightening Supine Exercise Name TA tightening without and with breath exhale Reps/Minutes 3' Sidelying Exercises TA tightening Sidelying Exercise Name TA tightenig training Reps/Minutes 8' Comments Extra time for awareness training. Phys/v cuing needed to feel TA Sitting Exercises LE Roll in/out Sitting Exercise Name Roll in/out with breathing/PF contraction Side bilateral Reps/Minutes 3' Comments cuing for mvmt of legs w/ breathing/PF contraction Sit to Stand/breathing/PF Sitting Exercise Name Sit to Stand w/coordinated breathing and PF (Quick Flicks /Long Holds) Reps/Minutes 1x review Self-Care/Home Management Treatment Education Patient Education Home Exercise Program Other Education Discussed Pt progression and pain assessment. Discussed POC for continuation when pt returns from her trip back to [place]. Discussed soft tissue difference in breast size of smaller R side. Pt understands she needs to have baby feed more on the R although baby prefers the L side. Activities Self-Care/Home Management Activities Issued and reviewed HEP for Transverse AB ex on all 4's and pt I/S to do in sidelie and supine the same ms contraction. Issued handout for description of TA tightening. PT-OP-T Assessment and Plan Start: 08/26/21 17:47 Freq: Status: Active Protocol: Document 12/30/21 13:52 LRN (Rec: 12/30/21 14:51 LRN [id number]) Physical Therapy Assessment Goals Six Impairment R hip pain rated 4-9/10 Impairment At rest pain is 4/10, with activity pain is 7-9/10. LEFS is 16 (80-99% impaired) Short Term Goal (STG) Decrease R hip pain to no more than 4/10 with activity. (12/30/21: R anterior groin pain is 0/10 at rest). STG Duration 01/31/22 Jail Goal (LTG) Decrease R hip pain to 0-1/10 at rest with modification to her sitting as needed, and with activity. LTG Duration 03/17/22 Five Impairment Urge incontinence in the presences of a strong urge. Short Term Goal (STG) Pt will be educated in Urge deference technique STG Duration 09/06/21 (09/13/21: MET GOAL) Jail Goal (LTG) Pt will be able to remain continent in the presence of a strong urge. (12/17/21: 85% of the time able to maintain continence) LTG Duration 03/17/22 (12/17/21: Progressed ) Four Impairment Pain with palp at 3, 6, 9 of PF Clock Short Term Goal (STG) Pt will be educated in PF stretches. (12/17/21: Not able to do due to hip pain since fall ) STG Duration 01/31/22 Insurance Job Titles Goal (LTG) No pelvic pain with palpation LTG Duration 03/17/22 Three Impairment Pt has difficulty sustaining a Long Hold PF contraction for 10 secs Impairment (Initial: Long Hold 7 secs) Short Term Goal (STG) Pt will be able to perform a PF contraction in the absence of abdominal/gluteal muscles and hold for 5 secs. (09/23/21: Pt able to recognize doing a PF contraction in abscence of substitute muscles). STG Duration 01/31/22 Insurance Job [employer]les Goal (LTG) Pt will improve PF endurance of holding 10 secs prior to fatigue and to improve strength to 3/5, with pt able to lift objects without onset of urinary leakage. LTG Duration 03/17/22 Two Impairment Urinary incontinence with a strong cough, sneeze or with laughing. Impairment Initial Quick Flick 0-1 rep Short Term Goal (STG) Improve PF Quick Flick strength with pt able to perform Quick contractions of 5 reps prior to fatigue. STG Duration 01/31/22 Insurance Job Titles Goal (LTG) Improve PF strength, of Quick Flicks to 3/5 strength, and ability to perform 10 quick flicks prior to fatigue. Pt will be able to maintain continence in the presence of a strong cough, sneeze and with sudden laughing. LTG Duration 03/17/22 One Impairment Pt lacks appropriate self care HEP Short Term Goal (STG) Pt will be independent with a HEP of hip stretches and PF/TA /hip strengthening. (09/23/21: HEP: Verbal I/S : Sit to stands for Quick Flicks and for Long Holds - holding sit<>stand and doing hip ER/IR x 4 between bouts of sit<> stand. HEP: Fig 4 and Piriformis stretch). (12/30/21: Added TA strengthening 4 pt & I/S in sidelie & sup, I/S sitting LE roll in/out). STG Duration 01/31/22 (09/23/21: met for hip stretches) Jail Goal (LTG) Pt will be independent in a self care HEP for PF strengthening. LTG Duration 03/17/22 Assessment Summary Assessment Positive reponse to STM last treatment with resolution of sharp pain in R anterior groin . Pt ASIS appears level in supine. Pt moves very slowly through ex's and positional changes. Much concentration is needed prior to moving. Pt showed good understanding of TA contraction awareness in sidelie. She is doing very good with coordinating breathing with transfers. She has very weak lower TA strength with minimal lift of belly when doing TA in sidelie . Pt has noted difference in breast size from L to R. Physical Therapy Plan Frequency and Duration Frequency of Treatment 1x/Week Plan of Care Start Date 12/17/21 Plan of Care End Date 03/17/22 Next Visit Focus/Plan Next Note Type Treatment Note Next Visit Plan On return from 3 week vacation , assess trunk strength, review hip stretches: Fig 4 & Piriformis stretch. Stabilize pelvis, core (internal rotators) and progress PF strengthening, Assess performance of proper Kegel without use of substitute muscles and in strengthening of aggrevators. Correct for open pattern . When tolerated, add HEP: PF stretches (Happy Baby Pose), Pt education in proper vulvar/ genital care, deep breathing and transfers, PF/core/hip strengthening, improve hip mobility, improve abdominal soft tissue (bladder) mobility , discuss foods, and water intake. Discuss bowel function relating to urinary leakage, Check proper breathing. When appropriate, start TA strengthening, K-taping for DR (above umbilicus), discuss & educate pt in proper squatting and lifting, sit to stand, and moving in bed using breathwork and core/PF stabilization for proper abdominal pressure system, teach proper isolated Kegels for pelvic stabilization, STM of abdomen (and urachus), bladder. Manual therapy for PF pain areas.
--- NOTE | 2022-02-17 12:10 | PT.OTN ---
Current Diagnoses Pain in right hip (02/17/22) Postural lordosis, lumbar region (02/17/22) Muscle weakness (generalized) (02/17/22) Mixed incontinence (02/17/22) Urethrocele (02/17/22) Physical Therapy Treatment Note PT-OP-A Visit Information Start: 08/26/21 17:47 Freq: Status: Active Protocol: Document 02/17/22 08:17 LRN (Rec: 02/17/22 09:03 LRN [id number]) Out-Patient Physical Therapy Visit Information Visit Information Visit Type Treatment Note Visit Start Time 08:17 Visit Stop Time 09:01 Total Visit Minutes 44 Visit Number 6 Evaluation Information Evaluation Date 08/27/21 Precautions Precautions Diabetes type II, fall resulting in R anterior hip pain. PT-OP-B Current Condition Start: 08/26/21 17:47 Freq: Status: Active Protocol: Document 08/27/21 11:30 LRN (Rec: 08/27/21 12:29 LRN [id number]) Current Condition History of Current Condition Onset Date 05/26/21 Current Complaints Urinary leakage with sneeze or cough and general joint achiness. History of Current Condition Pt is 12 weeks s/p childbirth. Onset of urinary leakage since of son with 58 hour labor suffering a 2nd degree tear. Pt is having moderage urinary leakage, and random drops of leakage. If thinks she has to go, she is not able to wait to void. She leaks with sneezing or coughing. Struggles to move quickly due to excessive mobilty of joints causing soreness of joints everything aches. Pt is currently . At 6 wks physician follow-up with her workforce management consultant, she was found to have her bladder had descended. Her vaginal incisions was told have healed. 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 Developmental History Developmental History Gestational: Diabetes, HTN, and reflux at week 16. Her HTN and reflux has normalized, but she still has type II diabetes. During preganancy: 2 placenta abruptions, Vaginal with vacuum.. 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 Current Functional Impairments (Reported) Functional Limitations- ADL's Urinary leakage with laughing, sneezing, coughing, General joint pains with movement. Functional Limitations- Mobility/Gait Goes sideways down stairs because of weakness and doesn' t feel safe. 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 Hypermobile joints; therefore sitting still for > 5 minutes she has fear of joints moving too much increasing her risk of falling. Couple of times concerned of falling because body isn't moving. PT-OP-C Subjective Start: 08/26/21 17:47 Freq: Status: Active Protocol: Document 02/17/22 08:17 LRN (Rec: 02/17/22 09:03 LRN [id number]) OP-PT Subjective Patient Comments Patient Comments Just came back from a trip overseas, [facility] and [place]. Fell while in [facility] (4 weeks ago) and fell on the R hip. Now R hip aches all the time. Pain is rated constant 3-4/10. Worse if turning and putting on socks must turn body to do. PT-OP-I Pelvic Floor Start: 08/26/21 17:47 Freq: Status: Active Protocol: Document 09/13/21 13:35 LRN (Rec: 09/13/21 14:41 LRN [id number]) Pelvic Floor Assessment SEMG (uV) Baseline 0.7 Quick Contraction 5.4 10 Second Contraction 3.1 Recruitment Pattern Fair Relaxation Good Holding Fair Stability of Hold Fair SEMG Stability of Rest Good Comments Pelvic Floor Comments Qiuick Flicks (in microVolts) 10 rep: Avg work 5.4 /Avg rest 2.6 20 reps: Avg work 5.5, Avg rest 2.6 Long Hold (in microVolts): 10 reps: Avg work 3.5 /Avg rest 1.0 20 reps: Avg work 3.1, Avg rest 1.03 PT-OP-J Posture/Palpation/Skin Start: 08/26/21 17:47 Freq: Status: Active Protocol: Document 12/17/21 13:50 LRN (Rec: 12/17/21 16:53 LRN [id number]) Palpation Assessment Location Inferior angle of Pubic Bone Palpation Location R Pub inferior angle Palpation Details Decreased superior glide mobility. L Ischial Tub Palpation Location L Ischial tub for PA in prone. Palpation Details Decreased PA mobility Sacrum Palpation Location Sacrum Palpation Details Sacrum in L rotation and sidebent R with decreased mobility with L Sacral sulcus inferior glide and VAMSI with PA mob in prone. PT-OP-K Range of Motion Start: 08/26/21 17:47 Freq: Status: Active Protocol: Document 08/27/21 11:30 LRN (Rec: 08/27/21 12:29 LRN [id number]) Lumbar Spine Range of Motion Lumbar Spine Active Degrees Testing Position Standing Flexion 75 Extension 25 Rotation Left 20 Rotation Right 30 Lateral Flexion Left 15 Lateral Flexion Right 17 ROM Limitations Soft Tissue Tightness,Muscle Weakness,Pain Comments Trunk flexion is with 45 deg's hip flexion Trunk extension is with 10 deg 's hip extension Hip Goniometric Range of Motion Hip Right Passive Testing Position Supine Abduction 30 Internal Rotation 15 External Rotation 75 Left Passive Testing Position Supine Abduction 45 Internal Rotation 20 External Rotation 70 PT-OP-M Strength Start: 08/26/21 17:47 Freq: Status: Active Protocol: Document 12/17/21 13:50 LRN (Rec: 12/17/21 16:53 LRN [id number]) Trunk Strength Trunk Manual Muscle Testing Rotation Left 2 Poor Rotation Right 2 Poor Core Stabilization Pt not able to perform a TA contraction in lower abdomen ( umbilicus and below). PT-OP-Q Treatments Start: 08/26/21 17:47 Freq: Status: Active Protocol: Document 02/17/22 08:17 LRN (Rec: 02/17/22 09:03 LRN [id number]) Therapeutic Exercises Supine Exercises TA - VALENTIN/Cough Supine Exercise Name TA contraction & training of TA holding w/HAHA & Cough Reps/Minutes 8' Comments AB bulging w/laughing @ start, was able to hold TA w/cuing after training TA tightening Supine Exercise Name TA tightening with head lifts Comments Check of Prone Exercises TA Prone Exercise Name TA after manual therapy Equipment Used pillow Reps/Minutes 10 H x 10 Manual Therapy Treatment Soft Tissue Mobilization R Ischial Tub Body Location R Ischial Tuberosity Mobilization Type Sustained Pressure Intensity/Depth Moderate Body Position Prone Comments Prone position w/ pillow under chest and ankles. R ischial tuberosity PA pressure to improve PA mobility. Inferior angle of Pubic Bone Body Location Inferior Pubs Mobilization Type Sustained Pressure Intensity/Depth Moderate Body Position Supine Comments Treatment with glove x 2. Sacrum Body Location Sacrum Mobilization Type Sustained Pressure Intensity/Depth Moderate Body Position Prone Comments Prone position w/ pillow under chest and ankles. RX: Correction to improve mobility for: L Sacral sulcus inferior glide, L VAMSI PA glide to correct a L rotation PT-OP-T Assessment and Plan Start: 08/26/21 17:47 Freq: Status: Active Protocol: Document 02/17/22 08:17 LRN (Rec: 02/17/22 09:03 LRN [id number]) Physical Therapy Assessment Goals Six Impairment R hip pain rated 4-9/10 Impairment At rest pain is 4/10, with activity pain is 7-9/10. LEFS is 16 (80-99% impaired) Short Term Goal (STG) Decrease R hip pain to no more than 4/10 with activity. (12/30/21: R anterior groin pain is 0/10 at rest). STG Duration 01/31/22 Skilled Nursing Goal (LTG) Decrease R hip pain to 0-1/10 at rest with modification to her sitting as needed, and with activity. LTG Duration 03/17/22 Five Impairment Urge incontinence in the presences of a strong urge. Short Term Goal (STG) Pt will be educated in Urge deference technique STG Duration 09/06/21 (09/13/21: MET GOAL) Skilled Nursing Goal (LTG) Pt will be able to remain continent in the presence of a strong urge. (12/17/21: 85% of the time able to maintain continence) LTG Duration 03/17/22 (12/17/21: Progressed ) Four Impairment Pain with palp at 3, 6, 9 of PF Clock Short Term Goal (STG) Pt will be educated in PF stretches. (12/17/21: Not able to do due to hip pain since fall ) STG Duration 01/31/22 Skilled Nursing Goal (LTG) No pelvic pain with palpation LTG Duration 03/17/22 Three Impairment Pt has difficulty sustaining a Long Hold PF contraction for 10 secs Impairment (Initial: Long Hold 7 secs) Short Term Goal (STG) Pt will be able to perform a PF contraction in the absence of abdominal/gluteal muscles and hold for 5 secs. (09/23/21: Pt able to recognize doing a PF contraction in abscence of substitute muscles). STG Duration 01/31/22 Community Service Representative Goal (LTG) Pt will improve PF endurance of holding 10 secs prior to fatigue and to improve strength to 3/5, with pt able to lift objects without onset of urinary leakage. LTG Duration 03/17/22 Two Impairment Urinary incontinence with a strong cough, sneeze or with laughing. Impairment Initial Quick Flick 0-1 rep Short Term Goal (STG) Improve PF Quick Flick strength with pt able to perform Quick contractions of 5 reps prior to fatigue. STG Duration 01/31/22 Community Service Representative Goal (LTG) Improve PF strength, of Quick Flicks to 3/5 strength, and ability to perform 10 quick flicks prior to fatigue. Pt will be able to maintain continence in the presence of a strong cough, sneeze and with sudden laughing. LTG Duration 03/17/22 One Impairment Pt lacks appropriate self care HEP Short Term Goal (STG) Pt will be independent with a HEP of hip stretches and PF/TA /hip strengthening. (09/23/21: HEP: Verbal I/S : Sit to stands for Quick Flicks and for Long Holds - holding sit<>stand and doing hip ER/IR x 4 between bouts of sit<> stand. HEP: Fig 4 and Piriformis stretch). (12/30/21: Added TA strengthening 4 pt & I/S in sidelie & sup, I/S sitting LE roll in/out). (02/17/22: HEP: HAHA & cough training) STG Duration 01/31/22 (09/23/21: met for hip stretches) Community Service Representative Goal (LTG) Pt will be independent in a self care HEP for PF strengthening. LTG Duration 03/17/[address] appears closed below umbilicus, and open above umbilicus at 3 above (1 finger width), 2 & 1 above ( 1.5 finger width). Pt Sacrum appeared L SB & L rotated & superior on R, with an anteriorly rotated L innominate. She appeared corrected after manual therapy , but core control and proper body mechanics need further training as pt forgets to brace and tends to stand on one leg (putting shoes on, generally to move/shake her body up). Pt does show improved ability to tighten core with laughing only when cued and after training. Further training needed (for haha & cough). Physical Therapy Plan Frequency and Duration Frequency of Treatment 1x/Week Plan of Care Start Date 12/17/21 Plan of Care End Date 03/17/22 Next Visit Focus/Plan Next Note Type Treatment Note Next Visit Plan Assess open pattern correction, and assess trunk strength, review hip stretches : Fig 4 & Piriformis stretch. Stabilize pelvis, core ( internal rotators) and progress PF strengthening, Assess performance of proper Kegel without use of substitute muscles and in strengthening of aggrevators. When tolerated, add HEP: PF stretches (Happy Baby Pose), Pt education in proper vulvar/ genital care, deep breathing and transfers, PF/core/hip strengthening, improve hip mobility, improve abdominal soft tissue (bladder) mobility , discuss foods, and water intake. Discuss bowel function relating to urinary leakage, Check proper breathing. When appropriate, start TA strengthening, K-taping for DR (above umbilicus), discuss & educate pt in proper squatting and lifting, sit to stand, and moving in bed using breathwork and core/PF stabilization for proper abdominal pressure system, teach proper isolated Kegels for pelvic stabilization, STM of abdomen (and urachus), bladder. Manual therapy for PF pain areas.
--- NOTE | 2022-02-24 09:43 | PT.OTN ---
Current Diagnoses Pain in right hip (02/24/22) Postural lordosis, lumbar region (02/24/22) Muscle weakness (generalized) (02/24/22) Mixed incontinence (02/24/22) Urethrocele (02/24/22) Physical Therapy Treatment Note PT-OP-A Visit Information Start: 08/26/21 17:47 Freq: Status: Active Protocol: Document 02/24/22 08:18 LRN (Rec: 02/24/22 09:41 LRN [id number]) Out-Patient Physical Therapy Visit Information Visit Information Visit Type Progress Note Visit Start Time 08:15 Visit Stop Time 08:55 Total Visit Minutes 40 Visit Number 7 Evaluation Information Evaluation Date 08/27/21 Precautions Precautions Diabetes type II, fall resulting in R anterior hip pain. PT-OP-B Current Condition Start: 08/26/21 17:47 Freq: Status: Active Protocol: Document 08/27/21 11:30 LRN (Rec: 08/27/21 12:29 LRN [id number]) Current Condition History of Current Condition Onset Date 05/26/21 Current Complaints Urinary leakage with sneeze or cough and general joint achiness. History of Current Condition Pt is 12 weeks s/p childbirth. Onset of urinary leakage since of son with 58 hour labor suffering a 2nd degree tear. Pt is having moderage urinary leakage, and random drops of leakage. If thinks she has to go, she is not able to wait to void. She leaks with sneezing or coughing. Struggles to move quickly due to excessive mobilty of joints causing soreness of joints everything aches. Pt is currently . At 6 wks physician follow-up with her upholstery parts sorter, she was found to have her bladder had descended. Her vaginal incisions was told have healed. 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 Developmental History Developmental History Gestational: Diabetes, HTN, and reflux at week 16. Her HTN and reflux has normalized, but she still has type II diabetes. During preganancy: 2 placenta abruptions, Vaginal with vacuum.. 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 Current Functional Impairments (Reported) Functional Limitations- ADL's Urinary leakage with laughing, sneezing, coughing, General joint pains with movement. Functional Limitations- Mobility/Gait Goes sideways down stairs because of weakness and doesn' t feel safe. 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 Hypermobile joints; therefore sitting still for > 5 minutes she has fear of joints moving too much increasing her risk of falling. Couple of times concerned of falling because body isn't moving. PT-OP-C Subjective Start: 08/26/21 17:47 Freq: Status: Active Protocol: Document 02/24/22 08:18 LRN (Rec: 02/24/22 09:41 LRN [id number]) OP-PT Subjective Patient Comments Patient Comments States the morning after last session she was lowering her baby and the baby started wiggiling and then she was not able to get up off the ground . She went to her friend who put on 3.5 days of steroids ( one day of oxycodone) so today she is able to move but the pain is across the back, no radiating pain. Pain in LB is 3.5-4/10. Pain is achy. PT-OP-I Pelvic Floor Start: 08/26/21 17:47 Freq: Status: Active Protocol: Document 09/13/21 13:35 LRN (Rec: 09/13/21 14:41 LRN [id number]) Pelvic Floor Assessment SEMG (uV) Baseline 0.7 Quick Contraction 5.4 10 Second Contraction 3.1 Recruitment Pattern Fair Relaxation Good Holding Fair Stability of Hold Fair SEMG Stability of Rest Good Comments Pelvic Floor Comments Qiuick Flicks (in microVolts) 10 rep: Avg work 5.4 /Avg rest 2.6 20 reps: Avg work 5.5, Avg rest 2.6 Long Hold (in microVolts): 10 reps: Avg work 3.5 /Avg rest 1.0 20 reps: Avg work 3.1, Avg rest 1.03 PT-OP-J Posture/Palpation/Skin Start: 08/26/21 17:47 Freq: Status: Active Protocol: Document 12/17/21 13:50 LRN (Rec: 12/17/21 16:53 LRN [id number]) Palpation Assessment Location Inferior angle of Pubic Bone Palpation Location R Pub inferior angle Palpation Details Decreased superior glide mobility. L Ischial Tub Palpation Location L Ischial tub for PA in prone. Palpation Details Decreased PA mobility Sacrum Palpation Location Sacrum Palpation Details Sacrum in L rotation and sidebent R with decreased mobility with L Sacral sulcus inferior glide and VAMSI with PA mob in prone. PT-OP-K Range of Motion Start: 08/26/21 17:47 Freq: Status: Active Protocol: Document 08/27/21 11:30 LRN (Rec: 08/27/21 12:29 LRN [id number]) Lumbar Spine Range of Motion Lumbar Spine Active Degrees Testing Position Standing Flexion 75 Extension 25 Rotation Left 20 Rotation Right 30 Lateral Flexion Left 15 Lateral Flexion Right 17 ROM Limitations Soft Tissue Tightness,Muscle Weakness,Pain Comments Trunk flexion is with 45 deg's hip flexion Trunk extension is with 10 deg 's hip extension Hip Goniometric Range of Motion Hip Right Passive Testing Position Supine Abduction 30 Internal Rotation 15 External Rotation 75 Left Passive Testing Position Supine Abduction 45 Internal Rotation 20 External Rotation 70 PT-OP-M Strength Start: 08/26/21 17:47 Freq: Status: Active Protocol: Document 12/17/21 13:50 LRN (Rec: 12/17/21 16:53 LRN [id number]) Trunk Strength Trunk Manual Muscle Testing Rotation Left 2 Poor Rotation Right 2 Poor Core Stabilization Pt not able to perform a TA contraction in lower abdomen ( umbilicus and below). PT-OP-Q Treatments Start: 08/26/21 17:47 Freq: Status: Active Protocol: Document 02/24/22 08:18 LRN (Rec: 02/24/22 09:41 LRN [id number]) Therapeutic Exercises Sidelying Exercises Clamshell Sidelying Exercise Name Clamthell Side left Reps/Minutes 15x Comments Cuing for core stabilization Manual Therapy Treatment Soft Tissue Mobilization Low back Body Location Low back Mobilization Type Strumming Intensity/Depth Moderate Body Position Prone Self-Care/Home Management Treatment Education Other Education Pt education in proper body mechanics for daily activities and posture and body mechanics. Educated pt in use of UE's if knees are not able to bend to decrease strain on low back. Activities Self-Care/Home Management Activities Discussed plan of care for addition, goals and frequency of visits for addition of aquatic therapy to her rehab program and aquatic with land based therapy until she can be independent with an aquatic program.' Verbal review of TA melba exercise. PT-OP-R Modalities Start: 08/26/21 17:47 Freq: Status: Active Protocol: Document 02/24/22 08:18 LRN (Rec: 02/24/22 09:41 LRN [id number]) Ultrasound Therapy Treatment Lumbar paraspinals Treatment Duration (minutes) 8 Patient Position Prone Coupling Medium Ultrasound Gel Applicator Size (cm2) 10 Mode Setting Pulsed Duty Cycle 50% Intensity Setting (w/cm2) 1.5 PT-OP-T Assessment and Plan Start: 08/26/21 17:47 Freq: Status: Active Protocol: Document 02/24/22 08:18 LRN (Rec: 02/24/22 09:41 LRN [id number]) Physical Therapy Assessment Rehab Potential Rehabilitation Potential Good Evaluation Complexity Number of Personal Factors/Comorbidities 1-2 Number of Body Systems Impaired 4 or More Clinical Presentation at Evaluation Evolving Impairments Impairments Activity Tolerance,Functional Mobility,Pain,Posture,ROM,Soft Tissue Mobility,Strength, Transfers Goals Six Impairment R hip pain rated 4-9/10 Impairment At rest pain is 4/10, with activity pain is 7-9/10. LEFS is 16 (80-99% impaired) Short Term Goal (STG) Decrease R hip pain to no more than 4/10 with activity. (12/30/21: R anterior groin pain is 0/10 at rest). (02/24/22: Pain 6/10 due to recent injury of back) STG Duration 01/31/22 Hand Sander Goal (LTG) Decrease R hip pain to 0-1/10 at rest with modification to her sitting as needed, and with activity. LTG Duration 03/17/22 Five Impairment Urge incontinence in the presences of a strong urge. Short Term Goal (STG) Pt will be educated in Urge deference technique STG Duration 09/06/21 (09/13/21: MET GOAL) Hand Sander Goal (LTG) Pt will be able to remain continent in the presence of a strong urge. (12/17/21: 85% of the time able to maintain continence) (02/24/22: 75% of time able to maintain continecne) LTG Duration 03/17/22 (02/24/22: Progressed) Four Impairment Pain with palp at 3, 6, 9 of PF Clock Short Term Goal (STG) Pt will be educated in PF stretches. (12/17/21: Not able to do due to hip pain since fall ) (02/24/22: Not able to ex for past week due to recent LBP onset). STG Duration 01/31/22 Hand Sander Goal (LTG) No pelvic pain with palpation LTG Duration 03/17/22 Three Impairment Pt has difficulty sustaining a Long Hold PF contraction for 10 secs Impairment (Initial: Long Hold 7 secs) Short Term Goal (STG) Pt will be able to perform a PF contraction in the absence of abdominal/gluteal muscles and hold for 5 secs. (09/23/21: Pt able to recognize doing a PF contraction in abscence of substitute muscles). STG Duration 01/31/22 Intermediate Goal (LTG) Pt will improve PF endurance of holding 10 secs prior to fatigue and to improve strength to 3/5, with pt able to lift objects without onset of urinary leakage. LTG Duration 03/17/22 Two Impairment Urinary incontinence with a strong cough, sneeze or with laughing. Impairment Initial Quick Flick 0-1 rep Short Term Goal (STG) Improve PF Quick Flick strength with pt able to perform Quick contractions of 5 reps prior to fatigue. STG Duration 01/31/22 Hand Sander Goal (LTG) Improve PF strength, of Quick Flicks to 3/5 strength, and ability to perform 10 quick flicks prior to fatigue. Pt will be able to maintain continence in the presence of a strong cough, sneeze and with sudden laughing. LTG Duration 03/17/22 One Impairment Pt lacks appropriate self care HEP Short Term Goal (STG) Pt will be independent with a HEP of hip stretches and PF/TA /hip strengthening. (09/23/21: HEP: Verbal I/S : Sit to stands for Quick Flicks and for Long Holds - holding sit<>stand and doing hip ER/IR x 4 between bouts of sit<> stand. HEP: Fig 4 and Piriformis stretch). (12/30/21: Added TA strengthening 4 pt & I/S in sidelie & sup, I/S sitting LE roll in/out). (02/17/22: HEP: HAHA & cough training) STG Duration 01/31/22 (09/23/21: met for hip stretches) Hand Sander Goal (LTG) Pt will be independent in a self care HEP for PF strengthening. LTG Duration 03/17/22 Progress Towards Goals Progress Towards Goals Slow Progress due to Activity Tolerance,Slow Progress due to Medical Issues Assessment Summary Assessment The pt has been seen for 3 consecutive visits to start then had a break in therapy due to the holidays and has been sporadic since the new year with only 3 treatment visits since her last progress note due to travel and an injury from a fall. The pt returns today with increased back pain at level of L2-L4, rated 3.5-4/10, after an incident during the night with carrying a wiggling baby. The pt's progress for her urinary incontinence rehab has been hindered by her back pain; therefore it is recommended we add aquatic therapy to her treatment program. The pt will benefit from skilled physical therapy to help address her back pain and core instability in the unweighted aquatic environment in addition to her core/ urinary incontinence rehab on land in the clinic, each 1x/ week until she is able to transition to an independent pool program and resume her land based woman's health therapy 1x/week. Due to this set back the pt's rehabilitation is expected to be prolonged. Today, pt's postioning in the lumbar spine appears to be more posterior at L2, L3 with increased muscle tone of paraspinals. If the pt is not able to progress due to limitations of her back pain she will be referred back for further assessment. Physical Therapy Plan Frequency and Duration Frequency of Treatment 1x/Week Plan of Care Start Date 02/24/22 Plan of Care End Date 05/25/22 Therapeutic Interventions Therapeutic Interventions Aquatic Therapy,Home Exercise Program,Joint Mobilizations, Manual Therapy,Neuromuscular Re-education,Patient/Caregiver Education,Self-Care/Home Management,Soft Tissue Mobilization,Taping, Therapeutic Exercises Modalities Cold Pack/Ice Massage,Electric Stimulation,Hot Packs Next Visit Focus/Plan Next Note Type Treatment Note Next Visit Plan PSLR Test. Assess open pattern correction, and assess trunk strength, review hip stretches: Fig 4 & Piriformis stretch. Stabilize pelvis, core (internal rotators) and progress PF strengthening, Assess performance of proper Kegel without use of substitute muscles and in strengthening of aggrevators. When tolerated, add HEP: PF stretches (Happy Baby Pose) , Pt education in proper vulvar/ genital care, deep breathing and transfers, PF/core/hip strengthening, improve hip mobility, improve abdominal soft tissue (bladder) mobility , discuss foods, and water intake. Discuss bowel function relating to urinary leakage, Check proper breathing. When appropriate, start TA strengthening, K-taping for DR (above umbilicus), discuss & educate pt in proper squatting and lifting, sit to stand, and moving in bed using breathwork and core/PF stabilization for proper abdominal pressure system, teach proper isolated Kegels for pelvic stabilization, STM of abdomen (and urachus), bladder. Manual therapy for PF pain areas.
--- NOTE | 2022-02-26 11:00 | PT.OTN ---
Current Diagnoses Pain in right hip (02/26/22) Postural lordosis, lumbar region (02/26/22) Muscle weakness (generalized) (02/26/22) Mixed incontinence (02/26/22) Urethrocele (02/26/22) Physical Therapy Treatment Note PT-OP-A Visit Information Start: 08/26/21 17:47 Freq: Status: Active Protocol: Document 02/26/22 11:00 SAK (Rec: 03/02/22 19:31 SAK [id number]) Out-Patient Physical Therapy Visit Information Visit Information Visit Type Aquatic Treatment Note Visit Start Time 11:00 Visit Stop Time 11:45 Total Visit Minutes 40 Visit Number 8 Evaluation Information Evaluation Date 08/27/21 Precautions Precautions Diabetes type II, fall resulting in R anterior hip pain. PT-OP-B Current Condition Start: 08/26/21 17:47 Freq: Status: Active Protocol: Document 08/27/21 11:30 LRN (Rec: 08/27/21 12:29 LRN [id number]) Current Condition History of Current Condition Onset Date 05/26/21 Current Complaints Urinary leakage with sneeze or cough and general joint achiness. History of Current Condition Pt is 12 weeks s/p childbirth. Onset of urinary leakage since of son with 58 hour labor suffering a 2nd degree tear. Pt is having moderage urinary leakage, and random drops of leakage. If thinks she has to go, she is not able to wait to void. She leaks with sneezing or coughing. Struggles to move quickly due to excessive mobilty of joints causing soreness of joints everything aches. Pt is currently . At 6 wks physician follow-up with her guitar player, she was found to have her bladder had descended. Her vaginal incisions was told have healed. 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 Prior Treatments and Tests Inventory Clerk Nina said bladder had descended. Developmental History Developmental History Gestational: Diabetes, HTN, and reflux at week 16. Her HTN and reflux has normalized, but she still has type II diabetes. During preganancy: 2 placenta abruptions, Vaginal with vacuum.. 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 Current Functional Impairments (Reported) Functional Limitations- ADL's Urinary leakage with laughing, sneezing, coughing, General joint pains with movement. Functional Limitations- Mobility/Gait Goes sideways down stairs because of weakness and doesn' t feel safe. 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 Hypermobile joints; therefore sitting still for > 5 minutes she has fear of joints moving too much increasing her risk of falling. Couple of times concerned of falling because body isn't moving. PT-OP-C Subjective Start: 08/26/21 17:47 Freq: Status: Active Protocol: Document 02/26/22 11:00 SAK (Rec: 03/02/22 19:31 SAK [id number]) OP-PT Subjective Patient Comments Patient Comments Excited to try aquatic PT, loves the water. Achy pain persists. PT-OP-I Pelvic Floor Start: 08/26/21 17:47 Freq: Status: Active Protocol: Document 09/13/21 13:35 LRN (Rec: 09/13/21 14:41 LRN [id number]) Pelvic Floor Assessment SEMG (uV) Baseline 0.7 Quick Contraction 5.4 10 Second Contraction 3.1 Recruitment Pattern Fair Relaxation Good Holding Fair Stability of Hold Fair SEMG Stability of Rest Good Comments Pelvic Floor Comments Qiuick Flicks (in microVolts) 10 rep: Avg work 5.4 /Avg rest 2.6 20 reps: Avg work 5.5, Avg rest 2.6 Long Hold (in microVolts): 10 reps: Avg work 3.5 /Avg rest 1.0 20 reps: Avg work 3.1, Avg rest 1.03 PT-OP-J Posture/Palpation/Skin Start: 08/26/21 17:47 Freq: Status: Active Protocol: Document 12/17/21 13:50 LRN (Rec: 12/17/21 16:53 LRN [id number]) Palpation Assessment Location Inferior angle of Pubic Bone Palpation Location R Pub inferior angle Palpation Details Decreased superior glide mobility. L Ischial Tub Palpation Location L Ischial tub for PA in prone. Palpation Details Decreased PA mobility Sacrum Palpation Location Sacrum Palpation Details Sacrum in L rotation and sidebent R with decreased mobility with L Sacral sulcus inferior glide and VAMSI with PA mob in prone. PT-OP-K Range of Motion Start: 08/26/21 17:47 Freq: Status: Active Protocol: Document 08/27/21 11:30 LRN (Rec: 08/27/21 12:29 LRN [id number]) Lumbar Spine Range of Motion Lumbar Spine Active Degrees Testing Position Standing Flexion 75 Extension 25 Rotation Left 20 Rotation Right 30 Lateral Flexion Left 15 Lateral Flexion Right 17 ROM Limitations Soft Tissue Tightness,Muscle Weakness,Pain Comments Trunk flexion is with 45 deg's hip flexion Trunk extension is with 10 deg 's hip extension Hip Goniometric Range of Motion Hip Right Passive Testing Position Supine Abduction 30 Internal Rotation 15 External Rotation 75 Left Passive Testing Position Supine Abduction 45 Internal Rotation 20 External Rotation 70 PT-OP-M Strength Start: 08/26/21 17:47 Freq: Status: Active Protocol: Document 12/17/21 13:50 LRN (Rec: 12/17/21 16:53 LRN [id number]) Trunk Strength Trunk Manual Muscle Testing Rotation Left 2 Poor Rotation Right 2 Poor Core Stabilization Pt not able to perform a TA contraction in lower abdomen ( umbilicus and below). PT-OP-Q Treatments Start: 08/26/21 17:47 Freq: Status: Active Protocol: Document 02/24/22 08:18 LRN (Rec: 02/24/22 09:41 LRN [id number]) Therapeutic Exercises Sidelying Exercises Clamshell Sidelying Exercise Name Clamshell Side left Reps/Minutes 15x Comments Cuing for core stabilization Manual Therapy Treatment Soft Tissue Mobilization Low back Body Location Low back Mobilization Type Strumming Intensity/Depth Moderate Body Position Prone Self-Care/Home Management Treatment Education Other Education Pt education in proper body mechanics for daily activities and posture and body mechanics. Educated pt in use of UE's if knees are not able to bend to decrease strain on low back. Activities Self-Care/Home Management Activities Discussed plan of care for addition, goals and frequency of visits for addition of aquatic therapy to her rehab program and aquatic with land based therapy until she can be independent with an aquatic program.' Verbal review of DAVID reilly exercise. PT-OP-R Modalities Start: 08/26/21 17:47 Freq: Status: Active Protocol: Document 02/24/22 08:18 LRN (Rec: 02/24/22 09:41 LRN [id number]) Ultrasound Therapy Treatment Lumbar paraspinals Treatment Duration (minutes) 8 Patient Position Prone Coupling Medium Ultrasound Gel Applicator Size (cm2) 10 Mode Setting Pulsed Duty Cycle 50% Intensity Setting (w/cm2) 1.5 PT-OP-S Aquatic Treatment Start: 03/02/22 19:22 Freq: Status: Active Protocol: Document 02/26/22 11:00 SAK (Rec: 03/02/22 19:31 SAK [id number]) Aquatics Treatment Pool Entry/Exit Pool Entry/Exit Method Stairs Assistance Independent Water Walking Marching Water Level Chest Level Level of Assistance Standby Assistance,Verbal Cues Comments cues for neutral postural alignment and core stabilization, arms for drag Sideways Water Level Chest Level Level of Assistance Standby Assistance,Verbal Cues Comments cues for neutral postural alignment and core stabilization, arms for drag Backwards Water Level Chest Level Level of Assistance Standby Assistance,Verbal Cues Comments cues for neutral postural alignment and core stabilization, arms for drag Forwards Water Level Chest Level Level of Assistance Standby Assistance,Verbal Cues Comments cues for neutral postural alignment and core stabilization, arms for drag Spinal Exercises wall squat DLS Details with shld hor ab/ad, flex/ext Body Position Sitting Water Level Neck Level Reps/Duration 10x mariama, 10x unil [place] Activities [place] Activities Bicycle,Bicycle Backwards, Running Other Activities Deep water DLS, medium barballs Equipment medium barbells, flotation belt PT-OP-T Assessment and Plan Start: 08/26/21 17:47 Freq: Status: Active Protocol: Document 02/26/22 11:00 SAK (Rec: 03/02/22 19:31 SAK [id number]) Physical Therapy Assessment Goals Six Impairment R hip pain rated 4-9/10 Impairment At rest pain is 4/10, with activity pain is 7-9/10. LEFS is 16 (80-99% impaired) Short Term Goal (STG) Decrease R hip pain to no more than 4/10 with activity. (12/30/21: R anterior groin pain is 0/10 at rest). (02/24/22: Pain 6/10 due to recent injury of back) STG Duration 01/31/22 Pharmaceutical Specialty Representative Goal (LTG) Decrease R hip pain to 0-1/10 at rest with modification to her sitting as needed, and with activity. LTG Duration 03/17/22 Five Impairment Urge incontinence in the presences of a strong urge. Short Term Goal (STG) Pt will be educated in Urge deference technique STG Duration 09/06/21 (09/13/21: MET GOAL) Pharmaceutical Specialty Representative Goal (LTG) Pt will be able to remain continent in the presence of a strong urge. (12/17/21: 85% of the time able to maintain continence) (02/24/22: 75% of time able to maintain continecne) LTG Duration 03/17/22 (02/24/22: Progressed) Four Impairment Pain with palp at 3, 6, 9 of PF Clock Short Term Goal (STG) Pt will be educated in PF stretches. (12/17/21: Not able to do due to hip pain since fall ) (02/24/22: Not able to ex for past week due to recent LBP onset). STG Duration 01/31/22 Halfway Goal (LTG) No pelvic pain with palpation LTG Duration 03/17/22 Three Impairment Pt has difficulty sustaining a Long Hold PF contraction for 10 secs Impairment (Initial: Long Hold 7 secs) Short Term Goal (STG) Pt will be able to perform a PF contraction in the absence of abdominal/gluteal muscles and hold for 5 secs. (09/23/21: Pt able to recognize doing a PF contraction in abscence of substitute muscles). STG Duration 01/31/22 Pharmaceutical Specialty Representative Goal (LTG) Pt will improve PF endurance of holding 10 secs prior to fatigue and to improve strength to 3/5, with pt able to lift objects without onset of urinary leakage. LTG Duration 03/17/22 Two Impairment Urinary incontinence with a strong cough, sneeze or with laughing. Impairment Initial Quick Flick 0-1 rep Short Term Goal (STG) Improve PF Quick Flick strength with pt able to perform Quick contractions of 5 reps prior to fatigue. STG Duration 01/31/22 Halfway Goal (LTG) Improve PF strength, of Quick Flicks to 3/5 strength, and ability to perform 10 quick flicks prior to fatigue. Pt will be able to maintain continence in the presence of a strong cough, sneeze and with sudden laughing. LTG Duration 03/17/22 One Impairment Pt lacks appropriate self care HEP Short Term Goal (STG) Pt will be independent with a HEP of hip stretches and PF/TA /hip strengthening. (09/23/21: HEP: Verbal I/S : Sit to stands for Quick Flicks and for Long Holds - holding sit<>stand and doing hip ER/IR x 4 between bouts of sit<> stand. HEP: Fig 4 and Piriformis stretch). (12/30/21: Added TA strengthening 4 pt & I/S in sidelie & sup, I/S sitting LE roll in/out). (02/17/22: HEP: HAHA & cough training) STG Duration 01/31/22 (09/23/21: met for hip stretches) Halfway Goal (LTG) Pt will be independent in a self care HEP for PF strengthening. LTG Duration 03/17/22 Assessment Summary Assessment Good tolerance for therapeutic aquatic exercises, emphasis on neutral postural alignment and core stabilization with all. Feel aquatic therapy will be beneficial for this patient with both bouyancy and resistance benefits of water and patient's high comfort level. May incorporate some swimming activities into treatment starting with supine for neutral alignment. Denied increase in symptoms with aquatic therapy today. Physical Therapy Plan Frequency and Duration Frequency of Treatment 1x/Week Plan of Care Start Date 02/24/22 Plan of Care End Date 05/25/22 Therapeutic Interventions Therapeutic Interventions Aquatic Therapy,Home Exercise Program,Joint Mobilizations, Manual Therapy,Neuromuscular Re-education,Patient/Caregiver Education,Self-Care/Home Management,Soft Tissue Mobilization,Taping, Therapeutic Exercises Modalities Cold Pack/Ice Massage,Electric Stimulation,Hot Packs Next Visit Focus/Plan Next Note Type Treatment Note Next Visit Plan Clinic: PSLR Test. Assess open pattern correction, and assess trunk strength, review hip stretches: Fig 4 & Piriformis stretch. Stabilize pelvis, core (internal rotators) and progress PF strengthening, Assess performance of proper Kegel without use of substitute muscles and in strengthening of aggrevators. When tolerated, add HEP: PF stretches (Happy Baby Pose) , Pt education in proper vulvar/ genital care, deep breathing and transfers, PF/core/hip strengthening, improve hip mobility, improve abdominal soft tissue (bladder) mobility , discuss foods, and water intake. Discuss bowel function relating to urinary leakage, Check proper breathing. When appropriate, start TA strengthening, K-taping for DR (above umbilicus), discuss & educate pt in proper squatting and lifting, sit to stand, and moving in bed using breathwork and core/PF stabilization for proper abdominal pressure system, teach proper isolated Kegels for pelvic stabilization, STM of abdomen (and urachus), bladder. Manual therapy for PF pain areas. Aquatic therapy: assess response to today's treatment and progress aquatic exercise for core stabilization, strengthening, add gentle flexibility ex.
--- NOTE | 2022-03-03 11:56 | PT.OTN ---
Current Diagnoses Pain in right hip (03/03/22) Postural lordosis, lumbar region (03/03/22) Muscle weakness (generalized) (03/03/22) Mixed incontinence (03/03/22) Urethrocele (03/03/22) Physical Therapy Treatment Note PT-OP-A Visit Information Start: 08/26/21 17:47 Freq: Status: Active Protocol: Document 03/03/22 08:11 LRN (Rec: 03/03/22 09:02 LRN [id number]) Out-Patient Physical Therapy Visit Information Visit Information Visit Type Treatment Note Visit Start Time 08:18 Visit Stop Time 08:58 Total Visit Minutes 40 Visit Number 9 Evaluation Information Evaluation Date 08/27/21 Precautions Precautions Diabetes type II, fall resulting in R anterior hip pain. PT-OP-B Current Condition Start: 08/26/21 17:47 Freq: Status: Active Protocol: Document 08/27/21 11:30 LRN (Rec: 08/27/21 12:29 LRN [id number]) Current Condition History of Current Condition Onset Date 05/26/21 Current Complaints Urinary leakage with sneeze or cough and general joint achiness. History of Current Condition Pt is 12 weeks s/p childbirth. Onset of urinary leakage since of son with 58 hour labor suffering a 2nd degree tear. Pt is having moderage urinary leakage, and random drops of leakage. If thinks she has to go, she is not able to wait to void. She leaks with sneezing or coughing. Struggles to move quickly due to excessive mobilty of joints causing soreness of joints everything aches. Pt is currently . 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 Her vaginal incisions was told have healed. 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 Prior Treatments and Tests Property Assistant Nina said bladder had descended. Developmental History Developmental History Gestational: Diabetes, HTN, and reflux at week 16. Her HTN and reflux has normalized, but she still has type II diabetes. During preganancy: 2 placenta abruptions, Vaginal with vacuum.. 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 Current Functional Impairments (Reported) Functional Limitations- ADL's Urinary leakage with laughing, sneezing, coughing, General joint pains with movement. Functional Limitations- Mobility/Gait Goes sideways down stairs because of weakness and doesn' t feel safe. 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 Personal Factors Other Personal Factors That May Effect Pt reported: Therapy/Recovery Owns & works at [employer]. Hypermobile joints; therefore sitting still for > 5 minutes she has fear of joints moving too much increasing her risk of falling. Couple of times concerned of falling because body isn't moving. PT-OP-C Subjective Start: 08/26/21 17:47 Freq: Status: Active Protocol: Document 03/03/22 08:11 LRN (Rec: 03/03/22 09:02 LRN [id number]) OP-PT Subjective Patient Comments Patient Comments Just got off the plane last night. [place] much improved after last clinic session. Now that she has stopped breast feeding, her period has returned and her knee, arm wrist elbows and ankle pains are less. Today and for weeks 0.5/10. Still stiff in the morning. Hip pain is constant and sharp. Back pain vastly improved, but this morning is more achy (flying and driving) Back pain rated 5/10, R hip pain 6-9/10 (where she fell and landed). PT-OP-I Pelvic Floor Start: 08/26/21 17:47 Freq: Status: Active Protocol: Document 09/13/21 13:35 LRN (Rec: 09/13/21 14:41 LRN [id number]) Pelvic Floor Assessment SEMG (uV) Baseline 0.7 Quick Contraction 5.4 10 Second Contraction 3.1 Recruitment Pattern Fair Relaxation Good Holding Fair Stability of Hold Fair SEMG Stability of Rest Good Comments Pelvic Floor Comments Qiuick Flicks (in microVolts) 10 rep: Avg work 5.4 /Avg rest 2.6 20 reps: Avg work 5.5, Avg rest 2.6 Long Hold (in microVolts): 10 reps: Avg work 3.5 /Avg rest 1.0 20 reps: Avg work 3.1, Avg rest 1.03 PT-OP-J Posture/Palpation/Skin Start: 08/26/21 17:47 Freq: Status: Active Protocol: Document 12/17/21 13:50 LRN (Rec: 12/17/21 16:53 LRN [id number]) Palpation Assessment Location Inferior angle of Pubic Bone Palpation Location R Pub inferior angle Palpation Details Decreased superior glide mobility. L Ischial Tub Palpation Location L Ischial tub for PA in prone. Palpation Details Decreased PA mobility Sacrum Palpation Location Sacrum Palpation Details Sacrum in L rotation and sidebent R with decreased mobility with L Sacral sulcus inferior glide and VAMSI with PA mob in prone. PT-OP-K Range of Motion Start: 08/26/21 17:47 Freq: Status: Active Protocol: Document 08/27/21 11:30 LRN (Rec: 08/27/21 12:29 LRN [id number]) Lumbar Spine Range of Motion Lumbar Spine Active Degrees Testing Position Standing Flexion 75 Extension 25 Rotation Left 20 Rotation Right 30 Lateral Flexion Left 15 Lateral Flexion Right 17 ROM Limitations Soft Tissue Tightness,Muscle Weakness,Pain Comments Trunk flexion is with 45 deg's hip flexion Trunk extension is with 10 deg 's hip extension Hip Goniometric Range of Motion Hip Right Passive Testing Position Supine Abduction 30 Internal Rotation 15 External Rotation 75 Left Passive Testing Position Supine Abduction 45 Internal Rotation 20 External Rotation 70 PT-OP-M Strength Start: 08/26/21 17:47 Freq: Status: Active Protocol: Document 12/17/21 13:50 LRN (Rec: 12/17/21 16:53 LRN [id number]) Trunk Strength Trunk Manual Muscle Testing Rotation Left 2 Poor Rotation Right 2 Poor Core Stabilization Pt not able to perform a TA contraction in lower abdomen ( umbilicus and below). PT-OP-Q Treatments Start: 08/26/21 17:47 Freq: Status: Active Protocol: Document 03/03/22 08:11 LRN (Rec: 03/03/22 09:02 LRN [id number]) Therapeutic Exercises Supine Exercises Trunk rot Supine Exercise Name Kneed 90/90, hands press into thighs Side bilateral Reps/Minutes 4' Prone Exercises TA Prone Exercise Name TA after manual therapy Equipment Used pillow Reps/Minutes 10 H x 10 Manual Therapy Treatment Soft Tissue Mobilization R Ischial Tub Body Location R Ischial Tuberosity Mobilization Type Sustained Pressure Intensity/Depth Moderate Body Position Prone Comments Prone position w/ pillow under chest and ankles. R ischial tuberosity PA pressure to improve PA mobility. Inferior angle of Pubic Bone Body Location Inferior Pubs Mobilization Type Sustained Pressure Intensity/Depth Moderate Body Position Supine Comments Treatment with glove x 2. Sacrum Body Location Sacrum Mobilization Type Sustained Pressure Intensity/Depth Moderate Body Position Prone Comments Prone position w/ pillow under chest and ankles. RX: Correction to improve mobility for: L Sacral sulcus inferior glide, L VAMSI PA glide to correct a L rotation PT-OP-R Modalities Start: 08/26/21 17:47 Freq: Status: Active Protocol: Document 02/24/22 08:18 LRN (Rec: 02/24/22 09:41 LRN [id number]) Ultrasound Therapy Treatment Lumbar paraspinals Treatment Duration (minutes) 8 Patient Position Prone Coupling Medium Ultrasound Gel Applicator Size (cm2) 10 Mode Setting Pulsed Duty Cycle 50% Intensity Setting (w/cm2) 1.5 PT-OP-S Aquatic Treatment Start: 03/02/22 19:22 Freq: Status: Active Protocol: Document 02/26/22 11:00 SAK (Rec: 03/02/22 19:31 SAK [id number]) Aquatics Treatment Pool Entry/Exit Pool Entry/Exit Method Stairs Assistance Independent Water Walking Marching Water Level Chest Level Level of Assistance Standby Assistance,Verbal Cues Comments cues for neutral postural alignment and core stabilization, arms for drag Sideways Water Level Chest Level Level of Assistance Standby Assistance,Verbal Cues Comments cues for neutral postural alignment and core stabilization, arms for drag Backwards Water Level Chest Level Level of Assistance Standby Assistance,Verbal Cues Comments cues for neutral postural alignment and core stabilization, arms for drag Forwards Water Level Chest Level Level of Assistance Standby Assistance,Verbal Cues Comments cues for neutral postural alignment and core stabilization, arms for drag Spinal Exercises wall squat DLS Details with shld hor ab/ad, flex/ext Body Position Sitting Water Level Neck Level Reps/Duration 10x mariama, 10x unil [place] Activities [place] Activities Bicycle,Bicycle Backwards, Running Other Activities Deep water DLS, medium barballs Equipment medium barbells, flotation belt PT-OP-T Assessment and Plan Start: 08/26/21 17:47 Freq: Status: Active Protocol: Document 03/03/22 08:11 LRN (Rec: 03/03/22 09:02 LRN [id number]) Physical Therapy Assessment Goals Six Impairment R hip pain rated 4-9/10 Impairment At rest pain is 4/10, with activity pain is 7-9/10. LEFS is 16 (80-99% impaired) Short Term Goal (STG) Decrease R hip pain to no more than 4/10 with activity. (12/30/21: R anterior groin pain is 0/10 at rest). (02/24/22: Pain 6/10 due to recent injury of back) STG Duration 01/31/22 Senior Living Goal (LTG) Decrease R hip pain to 0-1/10 at rest with modification to her sitting as needed, and with activity. LTG Duration 03/17/22 Five Impairment Urge incontinence in the presences of a strong urge. Short Term Goal (STG) Pt will be educated in Urge deference technique STG Duration 09/06/21 (09/13/21: MET GOAL) Senior Living Goal (LTG) Pt will be able to remain continent in the presence of a strong urge. (12/17/21: 85% of the time able to maintain continence) (02/24/22: 75% of time able to maintain continecne) LTG Duration 03/17/22 (02/24/22: Progressed) Four Impairment Pain with palp at 3, 6, 9 of PF Clock Short Term Goal (STG) Pt will be educated in PF stretches. (12/17/21: Not able to do due to hip pain since fall ) (02/24/22: Not able to ex for past week due to recent LBP onset). STG Duration 01/31/22 Web Content Editor Goal (LTG) No pelvic pain with palpation LTG Duration 03/17/22 Three Impairment Pt has difficulty sustaining a Long Hold PF contraction for 10 secs Impairment (Initial: Long Hold 7 secs) Short Term Goal (STG) Pt will be able to perform a PF contraction in the absence of abdominal/gluteal muscles and hold for 5 secs. (09/23/21: Pt able to recognize doing a PF contraction in abscence of substitute muscles). STG Duration 01/31/22 Senior Living Goal (LTG) Pt will improve PF endurance of holding 10 secs prior to fatigue and to improve strength to 3/5, with pt able to lift objects without onset of urinary leakage. LTG Duration 03/17/22 Two Impairment Urinary incontinence with a strong cough, sneeze or with laughing. Impairment Initial Quick Flick 0-1 rep Short Term Goal (STG) Improve PF Quick Flick strength with pt able to perform Quick contractions of 5 reps prior to fatigue. STG Duration 01/31/22 Web Content Editor Goal (LTG) Improve PF strength, of Quick Flicks to 3/5 strength, and ability to perform 10 quick flicks prior to fatigue. Pt will be able to maintain continence in the presence of a strong cough, sneeze and with sudden laughing. LTG Duration 03/17/22 One Impairment Pt lacks appropriate self care HEP Short Term Goal (STG) Pt will be independent with a HEP of hip stretches and PF/TA /hip strengthening. (09/23/21: HEP: Verbal I/S : Sit to stands for Quick Flicks and for Long Holds - holding sit<>stand and doing hip ER/IR x 4 between bouts of sit<> stand. HEP: Fig 4 and Piriformis stretch). (12/30/21: Added TA strengthening 4 pt & I/S in sidelie & sup, I/S sitting LE roll in/out). (02/17/22: HEP: HAHA & cough training) STG Duration 01/31/22 (09/23/21: met for hip stretches) Web Content Editor Goal (LTG) Pt will be independent in a self care HEP for PF strengthening. LTG Duration 03/17/22 Progress Towards Goals Progress Comments ............. Assessment Summary Assessment + response to start of Aquatic therapy. Pt returns from airplane trip late last night. Her joint pains appear to have resolved with return of her period indicating pain reduction with hormone changes . Mechanically, pt sacrum is R rotated, Decreased shear of sacrum to L and decr R PA fo L VAMSI, decr PA of R ischium. R hip ER rotation is decreased. Pt asymmetry was corrected. Pt much improved with TA control with laughing. Pain decreased from 4/10 to 2-3/10 after treatment in low back and R hip, although R hip sharp pain is present. DR palpable 1-2 below Xyphoid process, otherwise DR not palpable; therefore no need for K-tape. Physical Therapy Plan Frequency and Duration Frequency of Treatment 1x/Week Plan of Care Start Date 02/24/22 Plan of Care End Date 05/25/22 Next Visit Focus/Plan Next Note Type Treatment Note Next Visit Plan Clinic: PSLR Test. Assess trunk strength, review hip stretches: Fig 4 & Piriformis stretch. Add HEP: PF stretches (Happy Baby Pose), Open pattern for correction to stabilize pelvis if needed, Stabilize core (internal rotator strengthening) and progress PF strengthening, Assess performance of proper Kegel without use of substitute muscles and in strengthening of aggrevators. Pt education: proper vulvar/ genital care, deep breathing and transfers, PF/core/hip strengthening, improve hip mobility, improve abdominal soft tissue (bladder) mobility , discuss foods, and water intake. Discuss bowel function relating to urinary leakage, Check proper breathing. When appropriate, start TA strengthening, discuss & educate pt in proper squatting and lifting, sit to stand, and moving in bed using breathwork and core/PF stabilization for proper abdominal pressure system, teach proper isolated Kegels for pelvic stabilization, STM of abdomen (and urachus), bladder. Manual therapy for PF pain areas. Aquatic therapy: assess response to today's treatment and progress aquatic exercise for core stabilization, strengthening, add gentle flexibility ex.
--- NOTE | 2022-03-05 14:20 | PT.OTN ---
Current Diagnoses Pain in right hip (03/05/22) Postural lordosis, lumbar region (03/05/22) Muscle weakness (generalized) (03/05/22) Mixed incontinence (03/05/22) Urethrocele (03/05/22) Physical Therapy Treatment Note PT-OP-A Visit Information Start: 08/26/21 17:47 Freq: Status: Active Protocol: Document 03/05/22 14:08 SAK (Rec: 03/05/22 14:20 SAK [id number]) Out-Patient Physical Therapy Visit Information Visit Information Visit Type Treatment Note Visit Start Time 10:15 Visit Stop Time 11:00 Total Visit Minutes 45 Visit Number 10 Evaluation Information Evaluation Date 08/27/21 Precautions Precautions Diabetes type II, fall resulting in R anterior hip pain. PT-OP-B Current Condition Start: 08/26/21 17:47 Freq: Status: Active Protocol: Document 08/27/21 11:30 LRN (Rec: 08/27/21 12:29 LRN [id number]) Current Condition History of Current Condition Onset Date 05/26/21 Current Complaints Urinary leakage with sneeze or cough and general joint achiness. History of Current Condition Pt is 12 weeks s/p childbirth. Onset of urinary leakage since of son with 58 hour labor suffering a 2nd degree tear. Pt is having moderage urinary leakage, and random drops of leakage. If thinks she has to go, she is not able to wait to void. She leaks with sneezing or coughing. Struggles to move quickly due to excessive mobilty of joints causing soreness of joints everything aches. Pt is currently . At 6 wks physician follow-up with her corporate administrator, she was found to have her bladder had descended. Her vaginal incisions [facility] was told have healed. 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 Prior Treatments and Tests Work Force Advisor Nina said bladder had descended. Developmental History Developmental History Gestational: Diabetes, HTN, and reflux at week 16. Her HTN and reflux has normalized, but she still has type II diabetes. During preganancy: 2 placenta abruptions, Vaginal with vacuum.. 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 Current Functional Impairments (Reported) Functional Limitations- ADL's Urinary leakage with laughing, sneezing, coughing, General joint pains with movement. Functional Limitations- Mobility/Gait Goes sideways down stairs because of weakness and doesn' t feel safe. 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 Hypermobile joints; therefore sitting still for > 5 minutes she has fear of joints moving too much increasing her risk of falling. Couple of times concerned of falling because body isn't moving. PT-OP-C Subjective Start: 08/26/21 17:47 Freq: Status: Active Protocol: Document 03/05/22 14:08 SAK (Rec: 03/05/22 14:20 [facility] [id number]) OP-PT Subjective Patient Comments Patient Comments I felt like a million bucks after aquatic therapy as compared to usually feeling like a quarter! Reports occasional unpredictable pain right hip, was in more pain after traveling. PT-OP-I Pelvic Floor Start: 08/26/21 17:47 Freq: Status: Active Protocol: Document 09/13/21 13:35 LRN (Rec: 09/13/21 14:41 LRN [id number]) Pelvic Floor Assessment SEMG (uV) Baseline 0.7 Quick Contraction 5.4 10 Second Contraction 3.1 Recruitment Pattern Fair Relaxation Good Holding Fair Stability of Hold Fair SEMG Stability of Rest Good Comments Pelvic Floor Comments Qiuick Flicks (in microVolts) 10 rep: Avg work 5.4 /Avg rest 2.6 20 reps: Avg work 5.5, Avg rest 2.6 Long Hold (in microVolts): 10 reps: Avg work 3.5 /Avg rest 1.0 20 reps: Avg work 3.1, Avg rest 1.03 PT-OP-J Posture/Palpation/Skin Start: 08/26/21 17:47 Freq: Status: Active Protocol: Document 12/17/21 13:50 LRN (Rec: 12/17/21 16:53 LRN [id number]) Palpation Assessment Location Inferior angle of Pubic Bone Palpation Location R Pub inferior angle Palpation Details Decreased superior glide mobility. L Ischial Tub Palpation Location L Ischial tub for PA in prone. Palpation Details Decreased PA mobility Sacrum Palpation Location Sacrum Palpation Details Sacrum in L rotation and sidebent R with decreased mobility with L Sacral sulcus inferior glide and VAMSI with PA mob in prone. PT-OP-K Range of Motion Start: 08/26/21 17:47 Freq: Status: Active Protocol: Document 08/27/21 11:30 LRN (Rec: 08/27/21 12:29 LRN [id number]) Lumbar Spine Range of Motion Lumbar Spine Active Degrees Testing Position Standing Flexion 75 Extension 25 Rotation Left 20 Rotation Right 30 Lateral Flexion Left 15 Lateral Flexion Right 17 ROM Limitations Soft Tissue Tightness,Muscle Weakness,Pain Comments Trunk flexion is with 45 deg's hip flexion Trunk extension is with 10 deg 's hip extension Hip Goniometric Range of Motion Hip Right Passive Testing Position Supine Abduction 30 Internal Rotation 15 External Rotation 75 Left Passive Testing Position Supine Abduction 45 Internal Rotation 20 External Rotation 70 PT-OP-M Strength Start: 08/26/21 17:47 Freq: Status: Active Protocol: Document 12/17/21 13:50 LRN (Rec: 12/17/21 16:53 LRN [id number]) Trunk Strength Trunk Manual Muscle Testing Rotation Left 2 Poor Rotation Right 2 Poor Core Stabilization Pt not able to perform a TA contraction in lower abdomen ( umbilicus and below). PT-OP-Q Treatments Start: 08/26/21 17:47 Freq: Status: Active Protocol: Document 03/03/22 08:11 LRN (Rec: 03/03/22 09:02 LRN [id number]) Therapeutic Exercises Supine Exercises Trunk rot Supine Exercise Name Kneed 90/90, hands press into thighs Side bilateral Reps/Minutes 4' Prone Exercises TA Prone Exercise Name TA after manual therapy Equipment Used pillow Reps/Minutes 10 H x 10 Manual Therapy Treatment Soft Tissue Mobilization R Ischial Tub Body Location R Ischial Tuberosity Mobilization Type Sustained Pressure Intensity/Depth Moderate Body Position Prone Comments Prone position w/ pillow under chest and ankles. R ischial tuberosity PA pressure to improve PA mobility. Inferior angle of Pubic Bone Body Location Inferior Pubs Mobilization Type Sustained Pressure Intensity/Depth Moderate Body Position Supine Comments Treatment with glove x 2. Sacrum Body Location Sacrum Mobilization Type Sustained Pressure Intensity/Depth Moderate Body Position Prone Comments Prone position w/ pillow under chest and ankles. RX: Correction to improve mobility for: L Sacral sulcus inferior glide, L VAMSI PA glide to correct a L rotation PT-OP-R Modalities Start: 08/26/21 17:47 Freq: Status: Active Protocol: Document 02/24/22 08:18 LRN (Rec: 02/24/22 09:41 LRN [id number]) Ultrasound Therapy Treatment Lumbar paraspinals Treatment Duration (minutes) 8 Patient Position Prone Coupling Medium Ultrasound Gel Applicator Size (cm2) 10 Mode Setting Pulsed Duty Cycle 50% Intensity Setting (w/cm2) 1.5 PT-OP-S Aquatic Treatment Start: 03/02/22 19:22 Freq: Status: Active Protocol: Document 03/05/22 14:08 SAK (Rec: 03/05/22 14:20 SAK [id number]) Aquatics Treatment Pool Entry/Exit Pool Entry/Exit Method Stairs Assistance Independent Water Walking Marching Water Level Chest Level Level of Assistance Standby Assistance,Verbal Cues Comments cues for neutral postural alignment and core stabilization, arms for drag Sideways Water Level Chest Level Level of Assistance Standby Assistance,Verbal Cues Comments cues for neutral postural alignment and core stabilization, arms for drag Backwards Water Level Chest Level Level of Assistance Standby Assistance,Verbal Cues Comments cues for neutral postural alignment and core stabilization, arms for drag Forwards Water Level Chest Level Level of Assistance Standby Assistance,Verbal Cues Comments cues for neutral postural alignment and core stabilization, arms for drag Lower Extremity Stretches piriformis Details ankle across knee; push down, pull toward opp shoulder. Equipment back against wall Reps/Duration 2x30 quad, hip flex Equipment small ankle floats Reps/Duration 2x30 IT band, groin Equipment small ankle floats Reps/Duration 2x30 HS stretch Equipment small ankle floats Reps/Duration 2x30 Upper Extremity Exercises pull down Equipment long barbell Reps/Duration 20x Comments cues for core engagement, neutral postural alignment Spinal Exercises barbell sit Details balance, propel fwd and back with cues for maintaining horizontal bar Reps/Duration 5x fwd, 5x bck x 5 Comments cues for core engagement. wall squat DLS Details with shld hor ab/ad, flex/ext Body Position Sitting Water Level Neck Level Reps/Duration 10x mariama, 10x unil Comments holding 2# weight against wall [place] Activities [place] Activities Bicycle,Bicycle Backwards, Cross Country,Hip Abduction/ Adduction,Sit Kicks Other Activities intervals sit kicks, hip ab/ad , and x-country x 2 (30: 15) with cues for neutral posture , small, tight movements. Deep water DLS, medium barballs: progressed pendulum with hold and lower leg lower and raise before switching sides. Equipment medium barbells, flotation belt PT-OP-T Assessment and Plan Start: 08/26/21 17:47 Freq: Status: Active Protocol: Document 03/05/22 14:08 [facility] (Rec: 03/05/22 14:20 [facility] [id number]) Physical Therapy Assessment Goals Six Impairment R hip pain rated 4-9/10 Impairment At rest pain is 4/10, with activity pain is 7-9/10. LEFS is 16 (80-99% impaired) Short Term Goal (STG) Decrease R hip pain to no more than 4/10 with activity. (12/30/21: R anterior groin pain is 0/10 at rest). (02/24/22: Pain 6/10 due to recent injury of back) STG Duration 01/31/22 Prison Goal (LTG) Decrease R hip pain to 0-1/10 at rest with modification to her sitting as needed, and with activity. LTG Duration 03/17/22 Five Impairment Urge incontinence in the presences of a strong urge. Short Term Goal (STG) Pt will be educated in Urge deference technique STG Duration 09/06/21 (09/13/21: MET GOAL) Prison Goal (LTG) Pt will be able to remain continent in the presence of a strong urge. (12/17/21: 85% of the time able to maintain continence) (02/24/22: 75% of time able to maintain continecne) LTG Duration 03/17/22 (02/24/22: Progressed) Four Impairment Pain with palp at 3, 6, 9 of PF Clock Short Term Goal (STG) Pt will be educated in PF stretches. (12/17/21: Not able to do due to hip pain since fall ) (02/24/22: Not able to ex for past week due to recent LBP onset). STG Duration 01/31/22 Prison Goal (LTG) No pelvic pain with palpation LTG Duration 03/17/22 Three Impairment Pt has difficulty sustaining a Long Hold PF contraction for 10 secs Impairment (Initial: Long Hold 7 secs) Short Term Goal (STG) Pt will be able to perform a PF contraction in the absence of abdominal/gluteal muscles and hold for 5 secs. (09/23/21: Pt able to recognize doing a PF contraction in abscence of substitute muscles). STG Duration 01/31/22 Prison Goal (LTG) Pt will improve PF endurance of holding 10 secs prior to fatigue and to improve strength to 3/5, with pt able to lift objects without onset of urinary leakage. LTG Duration 03/17/22 Two Impairment Urinary incontinence with a strong cough, sneeze or with laughing. Impairment Initial Quick Flick 0-1 rep Short Term Goal (STG) Improve PF Quick Flick strength with pt able to perform Quick contractions of 5 reps prior to fatigue. STG Duration 01/31/22 Substance Abuse Clinician Goal (LTG) Improve PF strength, of Quick Flicks to 3/5 strength, and ability to perform 10 quick flicks prior to fatigue. Pt will be able to maintain continence in the presence of a strong cough, sneeze and with sudden laughing. LTG Duration 03/17/22 One Impairment Pt lacks appropriate self care HEP Short Term Goal (STG) Pt will be independent with a HEP of hip stretches and PF/TA /hip strengthening. (09/23/21: HEP: Verbal I/S : Sit to stands for Quick Flicks and for Long Holds - holding sit<>stand and doing hip ER/IR x 4 between bouts of sit<> stand. HEP: Fig 4 and Piriformis stretch). (12/30/21: Added TA strengthening 4 pt & I/S in sidelie & sup, I/S sitting LE roll in/out). (02/17/22: HEP: HAHA & cough training) STG Duration 01/31/22 (09/23/21: met for hip stretches) Substance Abuse Clinician Goal (LTG) Pt will be independent in a self care HEP for PF strengthening. LTG Duration 03/17/22 Assessment Summary Assessment Able to progress aquatic exercises with emphasis on core stabilization, ex in pain -free ROM and intensity. Denied pain except with backward bicycle; appeared to be due to difficulty with neutral LE rotation with this activity so discontinued. Physical Therapy Plan Frequency and Duration Frequency of Treatment 1x/Week Plan of Care Start Date 02/24/22 Plan of Care End Date 05/25/22 Therapeutic Interventions Therapeutic Interventions Aquatic Therapy,Home Exercise Program,Joint Mobilizations, Manual Therapy,Neuromuscular Re-education,Patient/Caregiver Education,Self-Care/Home Management,Soft Tissue Mobilization,Taping, Therapeutic Exercises Modalities Cold Pack/Ice Massage,Electric Stimulation,Hot Packs Next Visit Focus/Plan Next Note Type Treatment Note Next Visit Plan Clinic: PSLR Test. Assess trunk strength, review hip stretches: Fig 4 & Piriformis stretch. Add HEP: PF stretches (Happy Baby Pose), Open pattern for correction to stabilize pelvis if needed, Stabilize core (internal rotator strengthening) and progress PF strengthening, Assess performance of proper Kegel without use of substitute muscles and in strengthening of aggrevators. Pt education: proper vulvar/ genital care, deep breathing and transfers, PF/core/hip strengthening, improve hip mobility, improve abdominal soft tissue (bladder) mobility , discuss foods, and water intake. Discuss bowel function relating to urinary leakage, Check proper breathing. When appropriate, start TA strengthening, discuss & educate pt in proper squatting and lifting, sit to stand, and moving in bed using breathwork and core/PF stabilization for proper abdominal pressure system, teach proper isolated Kegels for pelvic stabilization, STM of abdomen (and urachus), bladder. Manual therapy for PF pain areas. Aquatic therapy: Continue progression of therapeutic aquatic exercises with emphasis on neutral postural alignment and core stabilization. Manual therapy techniques as indicated.
--- NOTE | 2022-03-26 17:28 | PT.OTN ---
Current Diagnoses Pain in right hip (03/26/22) Postural lordosis, lumbar region (03/26/22) Muscle weakness (generalized) (03/26/22) Mixed incontinence (03/26/22) Urethrocele (03/26/22) Physical Therapy Treatment Note PT-OP-A Visit Information Start: 08/26/21 17:47 Freq: Status: Active Protocol: Document 03/26/22 17:15 SAK (Rec: 03/26/22 17:25 SAK [id number]) Out-Patient Physical Therapy Visit Information Visit Information Visit Type Aquatic Treatment Note Visit Start Time 10:15 Visit Stop Time 11:00 Total Visit Minutes 45 Visit Number 11 Evaluation Information Evaluation Date 08/27/21 Precautions Precautions Diabetes type II, fall resulting in R anterior hip pain. PT-OP-B Current Condition Start: 08/26/21 17:47 Freq: Status: Active Protocol: Document 08/27/21 11:30 LRN (Rec: 08/27/21 12:29 LRN [id number]) Current Condition History of Current Condition Onset Date 05/26/21 Current Complaints Urinary leakage with sneeze or cough and general joint achiness. History of Current Condition Pt is 12 weeks s/p childbirth. Onset of urinary leakage since of son with 58 hour labor suffering a 2nd degree tear. Pt is having moderage urinary leakage, and random drops of leakage. If thinks she has to go, she is not able to wait to void. She leaks with sneezing or coughing. Struggles to move quickly due to excessive mobilty of joints causing soreness of joints everything aches. Pt is currently . At 6 wks physician follow-up with her bleacher operator, she was found to have her bladder had descended. Her vaginal incisions was told have healed. 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 Prior Treatments and Tests Construction Sales Representative Nina said bladder had descended. Developmental History Developmental History Gestational: Diabetes, HTN, and reflux at week 16. Her HTN and reflux has normalized, but she still has type II diabetes. During preganancy: 2 placenta abruptions, Vaginal with vacuum.. 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 Current Functional Impairments (Reported) Functional Limitations- ADL's Urinary leakage with laughing, sneezing, coughing, General joint pains with movement. Functional Limitations- Mobility/Gait Goes sideways down stairs because of weakness and doesn' t feel safe. 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 Personal Factors Other Personal Factors That May Effect Pt reported: Therapy/Recovery Owns & works at [employer]. Hypermobile joints; therefore sitting still for > 5 minutes she has fear of joints moving too much increasing her risk of falling. Couple of times concerned of falling because body isn't moving. PT-OP-C Subjective Start: 08/26/21 17:47 Freq: Status: Active Protocol: Document 03/26/22 17:15 SAK (Rec: 03/26/22 17:25 [facility] [id number]) OP-PT Subjective Patient Comments Patient Comments Has missed having women's health PT due to PT out, travelled to [place] with fair tolerance. Continues with HEP. 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 PT-OP-I Pelvic Floor Start: 08/26/21 17:47 Freq: Status: Active Protocol: Document 09/13/21 13:35 LRN (Rec: 09/13/21 14:41 LRN [id number]) Pelvic Floor Assessment SEMG (uV) Baseline 0.7 Quick Contraction 5.4 10 Second Contraction 3.1 Recruitment Pattern Fair Relaxation Good Holding Fair Stability of Hold Fair SEMG Stability of Rest Good Comments Pelvic Floor Comments Qiuick Flicks (in microVolts) 10 rep: Avg work 5.4 /Avg rest 2.6 20 reps: Avg work 5.5, Avg rest 2.6 Long Hold (in microVolts): 10 reps: Avg work 3.5 /Avg rest 1.0 20 reps: Avg work 3.1, Avg rest 1.03 PT-OP-J Posture/Palpation/Skin Start: 08/26/21 17:47 Freq: Status: Active Protocol: Document 12/17/21 13:50 LRN (Rec: 12/17/21 16:53 LRN [id number]) Palpation Assessment Location Inferior angle of Pubic Bone Palpation Location R Pub inferior angle Palpation Details Decreased superior glide mobility. L Ischial Tub Palpation Location L Ischial tub for PA in prone. Palpation Details Decreased PA mobility Sacrum Palpation Location Sacrum Palpation Details Sacrum in L rotation and sidebent R with decreased mobility with L Sacral sulcus inferior glide and VAMSI with PA mob in prone. PT-OP-K Range of Motion Start: 08/26/21 17:47 Freq: Status: Active Protocol: Document 08/27/21 11:30 LRN (Rec: 08/27/21 12:29 LRN [id number]) Lumbar Spine Range of Motion Lumbar Spine Active Degrees Testing Position Standing Flexion 75 Extension 25 Rotation Left 20 Rotation Right 30 Lateral Flexion Left 15 Lateral Flexion Right 17 ROM Limitations Soft Tissue Tightness,Muscle Weakness,Pain Comments Trunk flexion is with 45 deg's hip flexion Trunk extension is with 10 deg 's hip extension Hip Goniometric Range of Motion Hip Right Passive Testing Position Supine Abduction 30 Internal Rotation 15 External Rotation 75 Left Passive Testing Position Supine Abduction 45 Internal Rotation 20 External Rotation 70 PT-OP-M Strength Start: 08/26/21 17:47 Freq: Status: Active Protocol: Document 12/17/21 13:50 LRN (Rec: 12/17/21 16:53 LRN [id number]) Trunk Strength Trunk Manual Muscle Testing Rotation Left 2 Poor Rotation Right 2 Poor Core Stabilization Pt not able to perform a TA contraction in lower abdomen ( umbilicus and below). PT-OP-Q Treatments Start: 08/26/21 17:47 Freq: Status: Active Protocol: Document 03/03/22 08:11 LRN (Rec: 03/03/22 09:02 LRN [id number]) Therapeutic Exercises Supine Exercises Trunk rot Supine Exercise Name Kneed 90/90, hands press into thighs Side bilateral Reps/Minutes 4' Prone Exercises TA Prone Exercise Name TA after manual therapy Equipment Used pillow Reps/Minutes 10 H x 10 Manual Therapy Treatment Soft Tissue Mobilization R Ischial Tub Body Location R Ischial Tuberosity Mobilization Type Sustained Pressure Intensity/Depth Moderate Body Position Prone Comments Prone position w/ pillow under chest and ankles. R ischial tuberosity PA pressure to improve PA mobility. Inferior angle of Pubic Bone Body Location Inferior Pubs Mobilization Type Sustained Pressure Intensity/Depth Moderate Body Position Supine Comments Treatment with glove x 2. Sacrum Body Location Sacrum Mobilization Type Sustained Pressure Intensity/Depth Moderate Body Position Prone Comments Prone position w/ pillow under chest and ankles. RX: Correction to improve mobility for: L Sacral sulcus inferior glide, L VAMSI PA glide to correct a L rotation PT-OP-R Modalities Start: 08/26/21 17:47 Freq: Status: Active Protocol: Document 02/24/22 08:18 LRN (Rec: 02/24/22 09:41 LRN [id number]) Ultrasound Therapy Treatment Lumbar paraspinals Treatment Duration (minutes) 8 Patient Position Prone Coupling Medium Ultrasound Gel Applicator Size (cm2) 10 Mode Setting Pulsed Duty Cycle 50% Intensity Setting (w/cm2) 1.5 PT-OP-S Aquatic Treatment Start: 03/02/22 19:22 Freq: Status: Active Protocol: Document 03/26/22 17:15 SAK (Rec: 03/26/22 17:25 SAK [id number]) Aquatics Treatment Pool Entry/Exit Pool Entry/Exit Method Stairs Assistance Independent Water Walking Marching Water Level Chest Level Walking Equipment Ankle Floats and paddles Level of Assistance Standby Assistance,Verbal Cues Comments cues for neutral postural alignment and core stabilization, arms for drag Sideways Water Level Chest Level Walking Equipment ankle floats and paddles Level of Assistance Standby Assistance,Verbal Cues Comments cues for neutral postural alignment and core stabilization, arms for drag Backwards Water Level Chest Level Level of Assistance Standby Assistance,Verbal Cues Comments cues for neutral postural alignment and core stabilization, arms for drag Forwards Water Level Chest Level Level of Assistance Standby Assistance,Verbal Cues Comments cues for neutral postural alignment and core stabilization, arms for drag Lower Extremity Exercises squats Equipment holding 10# weights (baby) Reps/Duration 10x2 Lower Extremity Stretches piriformis Details ankle across knee; push down, pull toward opp shoulder. Equipment back against wall Reps/Duration 2x30 quad, hip flex Equipment Small Noodle Reps/Duration 2x30 IT band, groin Equipment Small Noodle Reps/Duration 2x30 HS stretch Equipment Small Noodle Reps/Duration 2x30 Upper Extremity Exercises shoulder flex/ext Body Position Standing Water Level Chest Level Equipment UE paddles Reps/Duration 10x symmetrical, 10x opp directions Comments cues for core engagement hor ab/ad Body Position Standing Water Level Chest Level Equipment UE paddles Reps/Duration 10x mariama, 10x unil Comments cues for core engagement pull down Equipment 2 medium barbells Reps/Duration 20x Comments cues for core engagement, neutral postural alignment [place] Activities [place] Activities Bicycle,Bicycle Backwards, Cross Country,Sit Kicks Other Activities intervals run, sit kicks, and x-country x 2 (30: 30) with cues for neutral posture, small, tight movements. Deep water DLS, medium barballs: progressed UE pull downs in 90/90 position Equipment medium barbells PT-OP-T Assessment and Plan Start: 08/26/21 17:47 Freq: Status: Active Protocol: Document 03/26/22 17:15 SAK (Rec: 03/26/22 17:25 [facility] [id number]) Physical Therapy Assessment Goals Six Impairment R hip pain rated 4-9/10 Impairment At rest pain is 4/10, with activity pain is 7-9/10. LEFS is 16 (80-99% impaired) Short Term Goal (STG) Decrease R hip pain to no more than 4/10 with activity. (12/30/21: R anterior groin pain is 0/10 at rest). (02/24/22: Pain 6/10 due to recent injury of back) STG Duration 01/31/22 Halfway Goal (LTG) Decrease R hip pain to 0-1/10 at rest with modification to her sitting as needed, and with activity. 03/26/22: good goal progress LTG Duration 05/25/22 Five Impairment Urge incontinence in the presences of a strong urge. Short Term Goal (STG) Pt will be educated in Urge deference technique STG Duration 09/06/21 (09/13/21: MET GOAL) Commercial Floor Covering Installer Goal (LTG) Pt will be able to remain continent in the presence of a strong urge. (12/17/21: 85% of the time able to maintain continence) (02/24/22: 75% of time able to maintain continecne) LTG Duration 05/25/22 (02/24/22: Progressed ) Four Impairment Pain with palp at 3, 6, 9 of PF Clock Short Term Goal (STG) Pt will be educated in PF stretches. (12/17/21: Not able to do due to hip pain since fall ) (02/24/22: Not able to ex for past week due to recent LBP onset). STG Duration 01/31/22 Commercial Floor Covering Installer Goal (LTG) No pelvic pain with palpation LTG Duration 05/25/22 Three Impairment Pt has difficulty sustaining a Long Hold PF contraction for 10 secs Impairment (Initial: Long Hold 7 secs) Short Term Goal (STG) Pt will be able to perform a PF contraction in the absence of abdominal/gluteal muscles and hold for 5 secs. (09/23/21: Pt able to recognize doing a PF contraction in abscence of substitute muscles). STG Duration 01/31/22 Commercial Floor Covering Installer Goal (LTG) Pt will improve PF endurance of holding 10 secs prior to fatigue and to improve strength to 3/5, with pt able to lift objects without onset of urinary leakage. LTG Duration 05/25/22 Two Impairment Urinary incontinence with a strong cough, sneeze or with laughing. Impairment Initial Quick Flick 0-1 rep Short Term Goal (STG) Improve PF Quick Flick strength with pt able to perform Quick contractions of 5 reps prior to fatigue. STG Duration 01/31/22 Commercial Floor Covering Installer Goal (LTG) Improve PF strength, of Quick Flicks to 3/5 strength, and ability to perform 10 quick flicks prior to fatigue. Pt will be able to maintain continence in the presence of a strong cough, sneeze and with sudden laughing. LTG Duration 05/25/22 One Impairment Pt lacks appropriate self care HEP Short Term Goal (STG) Pt will be independent with a HEP of hip stretches and PF/TA /hip strengthening. (09/23/21: HEP: Verbal I/S : Sit to stands for Quick Flicks and for Long Holds - holding sit<>stand and doing hip ER/IR x 4 between bouts of sit<> stand. HEP: Fig 4 and Piriformis stretch). (12/30/21: Added TA strengthening 4 pt & I/S in sidelie & sup, I/S sitting LE roll in/out). (02/17/22: HEP: HAHA & cough training) STG Duration 01/31/22 (09/23/21: met for hip stretches) Halfway Goal (LTG) Pt will be independent in a self care HEP for PF strengthening. LTG Duration 05/25/22 Assessment Summary Assessment Patient able to increase intensity and core challenge with shallow and deep water therapeutic aquatic exercises without an increase in symptoms, overall improved with decreased c/o pain. Has not seen women's health PT recently but cont with HEP. Physical Therapy Plan Frequency and Duration Frequency of Treatment 1x/Week Plan of Care Start Date 02/24/22 Plan of Care End Date 05/25/22 Therapeutic Interventions Therapeutic Interventions Aquatic Therapy,Home Exercise Program,Joint Mobilizations, Manual Therapy,Neuromuscular Re-education,Patient/Caregiver Education,Self-Care/Home Management,Soft Tissue Mobilization,Taping, Therapeutic Exercises Modalities Cold Pack/Ice Massage,Electric Stimulation,Hot Packs Next Visit Focus/Plan Next Note Type Treatment Note Next Visit Plan Clinic: PSLR Test. Assess trunk strength, review hip stretches: Fig 4 & Piriformis stretch. Add HEP: PF stretches (Happy Baby Pose), Open pattern for correction to stabilize pelvis if needed, Stabilize core (internal rotator strengthening) and progress PF strengthening, Assess performance of proper Kegel without use of substitute muscles and in strengthening of aggrevators. Pt education: proper vulvar/ genital care, deep breathing and transfers, PF/core/hip strengthening, improve hip mobility, improve abdominal soft tissue (bladder) mobility , discuss foods, and water intake. Discuss bowel function relating to urinary leakage, Check proper breathing. When appropriate, start TA strengthening, discuss & educate pt in proper squatting and lifting, sit to stand, and moving in bed using breathwork and core/PF stabilization for proper abdominal pressure system, teach proper isolated Kegels for pelvic stabilization, STM of abdomen (and urachus), bladder. Manual therapy for PF pain areas. Aquatic therapy: Continue progression of therapeutic aquatic exercises with emphasis on neutral postural alignment and core stabilization. Manual therapy techniques as indicated.
--- NOTE | 2022-03-31 12:34 | PT.OTN ---
Current Diagnoses Pain in right hip (03/31/22) Postural lordosis, lumbar region (03/31/22) Muscle weakness (generalized) (03/31/22) Mixed incontinence (03/31/22) Urethrocele (03/31/22) Physical Therapy Treatment Note PT-OP-A Visit Information Start: 08/26/21 17:47 Freq: Status: Active Protocol: Document 03/31/22 08:22 LRN (Rec: 03/31/22 12:32 LRN [id number]) Out-Patient Physical Therapy Visit Information Visit Information Visit Type Treatment Note Visit Start Time 08:22 Visit Stop Time 09:04 Total Visit Minutes 42 Visit Number 12 Evaluation Information Evaluation Date 08/27/21 Precautions Precautions Diabetes type II, fall resulting in R anterior hip pain. PT-OP-B Current Condition Start: 08/26/21 17:47 Freq: Status: Active Protocol: Document 08/27/21 11:30 LRN (Rec: 08/27/21 12:29 LRN [id number]) Current Condition History of Current Condition Onset Date 05/26/21 Current Complaints Urinary leakage with sneeze or cough and general joint achiness. History of Current Condition Pt is 12 weeks s/p childbirth. Onset of urinary leakage since of son with 58 hour labor suffering a 2nd degree tear. Pt is having moderage urinary leakage, and random drops of leakage. If thinks she has to go, she is not able to wait to void. She leaks with sneezing or coughing. Struggles to move quickly due to excessive mobilty of joints causing soreness of joints everything aches. Pt is currently . 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 Her vaginal incisions was told have healed. 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 Prior Treatments and Tests Service Counselor Nina said bladder had descended. Developmental History Developmental History Gestational: Diabetes, HTN, and reflux at week 16. Her HTN and reflux has normalized, but she still has type II diabetes. During preganancy: 2 placenta abruptions, Vaginal with vacuum.. 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 Current Functional Impairments (Reported) Functional Limitations- ADL's Urinary leakage with laughing, sneezing, coughing, General joint pains with movement. Functional Limitations- Mobility/Gait Goes sideways down stairs because of weakness and doesn' t feel safe. 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 Hypermobile joints; therefore sitting still for > 5 minutes she has fear of joints moving too much increasing her risk of falling. Couple of times concerned of falling because body isn't moving. PT-OP-C Subjective Start: 08/26/21 17:47 Freq: Status: Active Protocol: Document 03/31/22 08:22 LRN (Rec: 03/31/22 12:32 LRN [id number]) OP-PT Subjective Patient Comments Patient Comments Doing pool therapy; therefore back is better, not having sharp pain. Urinary leakage is improving in increments. No accidents,and less leakage. No longer wearing liners, maybe due to less water intake . Leakage when bladder too full and no enough time to get to bathroom. Sharp pain in R anterior hip when in use ( quad stretch position in water -reaching back to grab foot), not with walking or stairs. PT-OP-I Pelvic Floor Start: 08/26/21 17:47 Freq: Status: Active Protocol: Document 09/13/21 13:35 LRN (Rec: 09/13/21 14:41 LRN [id number]) Pelvic Floor Assessment SEMG (uV) Baseline 0.7 Quick Contraction 5.4 10 Second Contraction 3.1 Recruitment Pattern Fair Relaxation Good Holding Fair Stability of Hold Fair SEMG Stability of Rest Good Comments Pelvic Floor Comments Qiuick Flicks (in microVolts) 10 rep: Avg work 5.4 /Avg rest 2.6 20 reps: Avg work 5.5, Avg rest 2.6 Long Hold (in microVolts): 10 reps: Avg work 3.5 /Avg rest 1.0 20 reps: Avg work 3.1, Avg rest 1.03 PT-OP-J Posture/Palpation/Skin Start: 08/26/21 17:47 Freq: Status: Active Protocol: Document 12/17/21 13:50 LRN (Rec: 12/17/21 16:53 LRN [id number]) Palpation Assessment Location Inferior angle of Pubic Bone Palpation Location R Pub inferior angle Palpation Details Decreased superior glide mobility. L Ischial Tub Palpation Location L Ischial tub for PA in prone. Palpation Details Decreased PA mobility Sacrum Palpation Location Sacrum Palpation Details Sacrum in L rotation and sidebent R with decreased mobility with L Sacral sulcus inferior glide and VAMSI with PA mob in prone. PT-OP-K Range of Motion Start: 08/26/21 17:47 Freq: Status: Active Protocol: Document 08/27/21 11:30 LRN (Rec: 08/27/21 12:29 LRN [id number]) Lumbar Spine Range of Motion Lumbar Spine Active Degrees Testing Position Standing Flexion 75 Extension 25 Rotation Left 20 Rotation Right 30 Lateral Flexion Left 15 Lateral Flexion Right 17 ROM Limitations Soft Tissue Tightness,Muscle Weakness,Pain Comments Trunk flexion is with 45 deg's hip flexion Trunk extension is with 10 deg 's hip extension Hip Goniometric Range of Motion Hip Right Passive Testing Position Supine Abduction 30 Internal Rotation 15 External Rotation 75 Left Passive Testing Position Supine Abduction 45 Internal Rotation 20 External Rotation 70 PT-OP-M Strength Start: 08/26/21 17:47 Freq: Status: Active Protocol: Document 12/17/21 13:50 LRN (Rec: 12/17/21 16:53 LRN [id number]) Trunk Strength Trunk Manual Muscle Testing Rotation Left 2 Poor Rotation Right 2 Poor Core Stabilization Pt not able to perform a TA contraction in lower abdomen ( umbilicus and below). PT-OP-Q Treatments Start: 08/26/21 17:47 Freq: Status: Active Protocol: Document 03/31/22 08:22 LRN (Rec: 03/31/22 12:32 LRN [id number]) Therapeutic Exercises Supine Exercises Hamstring stretch Supine Exercise Name PSLR Side bilateral Reps/Minutes 3' Hands/Knees Push Supine Exercise Name TA: Hands/knees push Reps/Minutes 8' TA - VALENTIN/Cough Supine Exercise Name TA contraction & training of TA holding w/HAHA & Cough Reps/Minutes 4' Comments Awareness training TA tightening Supine Exercise Name TA tightening awarenes training Reps/Minutes 2' Hip ER stretch Supine Exercise Name Fig 4 stretch Side bilateral Reps/Minutes 4' Manual Therapy Treatment Soft Tissue Mobilization R Iliopsoas Body Location R Ilipsoas Mobilization Type Sustained Pressure,Trigger Point Release Intensity/Depth Superficial Body Position Hooklying Self-Care/Home Management Treatment Education Patient Education Home Exercise Program Other Education Core/pelvis education with model. Review of proper transfer sup< >sit with proper TA/breathing. Activities Self-Care/Home Management Activities Issued & reviewed HEP: Hands/ knees push. PT-OP-R Modalities Start: 08/26/21 17:47 Freq: Status: Active Protocol: Document 02/24/22 08:18 LRN (Rec: 02/24/22 09:41 LRN [id number]) Ultrasound Therapy Treatment Lumbar paraspinals Treatment Duration (minutes) 8 Patient Position Prone Coupling Medium Ultrasound Gel Applicator Size (cm2) 10 Mode Setting Pulsed Duty Cycle 50% Intensity Setting (w/cm2) 1.5 PT-OP-S Aquatic Treatment Start: 03/02/22 19:22 Freq: Status: Active Protocol: Document 03/26/22 17:15 SAK (Rec: 03/26/22 17:25 SAK [id number]) Aquatics Treatment Pool Entry/Exit Pool Entry/Exit Method Stairs Assistance Independent Water Walking Marching Water Level Chest Level Walking Equipment Ankle Floats and paddles Level of Assistance Standby Assistance,Verbal Cues Comments cues for neutral postural alignment and core stabilization, arms for drag Sideways Water Level Chest Level Walking Equipment ankle floats and paddles Level of Assistance Standby Assistance,Verbal Cues Comments cues for neutral postural alignment and core stabilization, arms for drag Backwards Water Level Chest Level Level of Assistance Standby Assistance,Verbal Cues Comments cues for neutral postural alignment and core stabilization, arms for drag Forwards Water Level Chest Level Level of Assistance Standby Assistance,Verbal Cues Comments cues for neutral postural alignment and core stabilization, arms for drag Lower Extremity Exercises squats Equipment holding 10# weights (baby) Reps/Duration 10x2 Lower Extremity Stretches piriformis Details ankle across knee; push down, pull toward opp shoulder. Equipment back against wall Reps/Duration 2x30 quad, hip flex Equipment Small Noodle Reps/Duration 2x30 IT band, groin Equipment Small Noodle Reps/Duration 2x30 HS stretch Equipment Small Noodle Reps/Duration 2x30 Upper Extremity Exercises shoulder flex/ext Body Position Standing Water Level Chest Level Equipment UE paddles Reps/Duration 10x symmetrical, 10x opp directions Comments cues for core engagement hor ab/ad Body Position Standing Water Level Chest Level Equipment UE paddles Reps/Duration 10x mariama, 10x unil Comments cues for core engagement pull down Equipment 2 medium barbells Reps/Duration 20x Comments cues for core engagement, neutral postural alignment Milmine Activities Milmine Activities Bicycle,Bicycle Backwards, Cross Country,Sit Kicks Other Activities intervals run, sit kicks, and x-country x 2 (30: 30) with cues for neutral posture, small, tight movements. Deep water DLS, medium barballs: progressed UE pull downs in 90/90 position Equipment medium barbells PT-OP-T Assessment and Plan Start: 08/26/21 17:47 Freq: Status: Active Protocol: Document 03/31/22 08:22 LRN (Rec: 03/31/22 12:32 LRN [id number]) Physical Therapy Assessment Goals Two Impairment Urinary incontinence with a strong cough, sneeze or with laughing. Impairment Initial Quick Flick 0-1 rep Short Term Goal (STG) Improve PF Quick Flick strength with pt able to perform Quick contractions of 5 reps prior to fatigue. STG Duration 01/31/22 Correction Goal (LTG) Improve PF strength, of Quick Flicks to 3/5 strength, and ability to perform 10 quick flicks prior to fatigue. Pt will be able to maintain continence in the presence of a strong cough, sneeze and with sudden laughing. LTG Duration 05/25/22 One Impairment Pt lacks appropriate self care HEP Short Term Goal (STG) Pt will be independent with a HEP of hip stretches and PF/TA /hip strengthening. (09/23/21: HEP: Verbal I/S : Sit to stands for Quick Flicks and for Long Holds - holding sit<>stand and doing hip ER/IR x 4 between bouts of sit<> stand. HEP: Fig 4 and Piriformis stretch). (12/30/21: Added TA strengthening 4 pt & I/S in sidelie & sup, I/S sitting LE roll in/out). (02/17/22: HEP: HAHA & cough training) STG Duration 01/31/22 (09/23/21: met for hip stretches) Network Planner Goal (LTG) Pt will be independent in a self care HEP for PF strengthening. LTG Duration 05/25/22 Assessment Summary Assessment PSLR ~75-80 deg's without pain ; therefore no indication of neural involvment. With hip stretches pt has low tolerance to L hip mobilization into ER (Piriformis not checked). Pt was very tender at Iliacus at the Ileum, and had L groin pain with positioning for labral dysfunction; therefore deferred testing. Possible L labral injury or strain. Discussion of pt nighttime positioning places the L Iliacus in a shortened position; therefore pain at anterior L hip may be due to L Iliacus shortening. Further assessment. Per pt report she has a bowel mvmt daily; therefore she doesn't appear to have bowel involvement with L anterior hip pain. Physical Therapy Plan Next Visit Focus/Plan Next Note Type Treatment Note Next Visit Plan Clinic: Assess trunk strength, review hip stretch: Piriformis stretch. Review TA strengthening of Hands/Knees push ex. Add HEP: PF stretches (Happy Baby Pose), Open pattern for correction to stabilize pelvis if needed, Stabilize core (internal rotator strengthening) and progress PF strengthening, Assess performance of proper Kegel without use of substitute muscles and in strengthening of aggrevators. Pt education: proper vulvar/ genital care, deep breathing and transfers, PF/core/hip strengthening, improve hip mobility, improve abdominal soft tissue (bladder) mobility , discuss foods, and water intake. Check proper breathing. Progress TA strengthening, discuss & educate pt in proper squatting and lifting, sit to stand, and moving in bed using breathwork and core/PF stabilization for proper abdominal pressure system, teach proper isolated Kegels for pelvic stabilization, STM of abdomen (and urachus), bladder. Manual therapy for PF pain areas. Aquatic therapy: Continue progression of therapeutic aquatic exercises with emphasis on neutral postural alignment and core stabilization. Manual therapy techniques as indicated.
--- NOTE | 2022-04-07 09:32 | PT.OTN ---
Current Diagnoses Pain in right hip (04/07/22) Postural lordosis, lumbar region (04/07/22) Muscle weakness (generalized) (04/07/22) Mixed incontinence (04/07/22) Urethrocele (04/07/22) Physical Therapy Treatment Note PT-OP-A Visit Information Start: 08/26/21 17:47 Freq: Status: Active Protocol: Document 04/07/22 08:19 LRN (Rec: 04/07/22 09:04 LRN [id number]) Out-Patient Physical Therapy Visit Information Visit Information Visit Type Treatment Note Visit Start Time 08:19 Visit Stop Time 09:01 Total Visit Minutes 41 Visit Number 13 Evaluation Information Evaluation Date 08/27/21 Precautions Precautions Diabetes type II, fall resulting in R anterior hip pain. PT-OP-B Current Condition Start: 08/26/21 17:47 Freq: Status: Active Protocol: Document 08/27/21 11:30 LRN (Rec: 08/27/21 12:29 LRN [id number]) Current Condition History of Current Condition Onset Date 05/26/21 Current Complaints Urinary leakage with sneeze or cough and general joint achiness. History of Current Condition Pt is 12 weeks s/p childbirth. Onset of urinary leakage since of son with 58 hour labor suffering a 2nd degree tear. Pt is having moderage urinary leakage, and random drops of leakage. If thinks she has to go, she is not able to wait to void. She leaks with sneezing or coughing. Struggles to move quickly due to excessive mobilty of joints causing soreness of joints everything aches. Pt is currently . 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 Her vaginal incisions was told have healed. 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 Developmental History Developmental History Gestational: Diabetes, HTN, and reflux at week 16. Her HTN and reflux has normalized, but she still has type II diabetes. During preganancy: 2 placenta abruptions, Vaginal with vacuum.. 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 Current Functional Impairments (Reported) Functional Limitations- ADL's Urinary leakage with laughing, sneezing, coughing, General joint pains with movement. Functional Limitations- Mobility/Gait Goes sideways down stairs because of weakness and doesn' t feel safe. 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 Personal Factors Other Personal Factors That May Effect Pt reported: Therapy/Recovery Owns & works at [employer]. Hypermobile joints; therefore sitting still for > 5 minutes she has fear of joints moving too much increasing her risk of falling. Couple of times concerned of falling because body isn't moving. PT-OP-C Subjective Start: 08/26/21 17:47 Freq: Status: Active Protocol: Document 04/07/22 08:19 LRN (Rec: 04/07/22 09:04 LRN [id number]) OP-PT Subjective Patient Comments Patient Comments Missed last pool session. PT-OP-I Pelvic Floor Start: 08/26/21 17:47 Freq: Status: Active Protocol: Document 09/13/21 13:35 LRN (Rec: 09/13/21 14:41 LRN [id number]) Pelvic Floor Assessment SEMG (uV) Baseline 0.7 Quick Contraction 5.4 10 Second Contraction 3.1 Recruitment Pattern Fair Relaxation Good Holding Fair Stability of Hold Fair SEMG Stability of Rest Good Comments Pelvic Floor Comments Qiuick Flicks (in microVolts) 10 rep: Avg work 5.4 /Avg rest 2.6 20 reps: Avg work 5.5, Avg rest 2.6 Long Hold (in microVolts): 10 reps: Avg work 3.5 /Avg rest 1.0 20 reps: Avg work 3.1, Avg rest 1.03 PT-OP-J Posture/Palpation/Skin Start: 08/26/21 17:47 Freq: Status: Active Protocol: Document 12/17/21 13:50 LRN (Rec: 12/17/21 16:53 LRN [id number]) Palpation Assessment Location Inferior angle of Pubic Bone Palpation Location R Pub inferior angle Palpation Details Decreased superior glide mobility. L Ischial Tub Palpation Location L Ischial tub for PA in prone. Palpation Details Decreased PA mobility Sacrum Palpation Location Sacrum Palpation Details Sacrum in L rotation and sidebent R with decreased mobility with L Sacral sulcus inferior glide and VAMSI with PA mob in prone. PT-OP-K Range of Motion Start: 08/26/21 17:47 Freq: Status: Active Protocol: Document 08/27/21 11:30 LRN (Rec: 08/27/21 12:29 LRN [id number]) Lumbar Spine Range of Motion Lumbar Spine Active Degrees Testing Position Standing Flexion 75 Extension 25 Rotation Left 20 Rotation Right 30 Lateral Flexion Left 15 Lateral Flexion Right 17 ROM Limitations Soft Tissue Tightness,Muscle Weakness,Pain Comments Trunk flexion is with 45 deg's hip flexion Trunk extension is with 10 deg 's hip extension Hip Goniometric Range of Motion Hip Right Passive Testing Position Supine Abduction 30 Internal Rotation 15 External Rotation 75 Left Passive Testing Position Supine Abduction 45 Internal Rotation 20 External Rotation 70 PT-OP-M Strength Start: 08/26/21 17:47 Freq: Status: Active Protocol: Document 12/17/21 13:50 LRN (Rec: 12/17/21 16:53 LRN [id number]) Trunk Strength Trunk Manual Muscle Testing Rotation Left 2 Poor Rotation Right 2 Poor Core Stabilization Pt not able to perform a TA contraction in lower abdomen ( umbilicus and below). PT-OP-Q Treatments Start: 08/26/21 17:47 Freq: Status: Active Protocol: Document 04/07/22 08:19 LRN (Rec: 04/07/22 09:04 LRN [id number]) Therapeutic Exercises Supine Exercises Happy Baby Pose Supine Exercise Name Happy Baby Pose -DC due to R hip pain Reps/Minutes 1' Hamstring stretch Supine Exercise Name PSLR - MWM on return of R hip AP glide & hip mvmt to ADD Side bilateral Reps/Minutes 4' Comments Very painful on R hip on return to start position Hands/Knees Push Supine Exercise Name TA: Hands/knees push Reps/Minutes 6' Trunk rot Supine Exercise Name Kneed 90/90, hands press into thighs Side bilateral Reps/Minutes 4' Hip IR stretch Supine Exercise Name Piriformis - quick teaching with RLE Side bilateral Reps/Minutes 4' Hip ER stretch Supine Exercise Name Fig 4 stretch Side bilateral Reps/Minutes 5' Comments Extra time on R to move slowly out of stretch position Manual Therapy Treatment Soft Tissue Mobilization Balancing of pelvis Body Location Balancing pelvis Mobilization Type Sustained Pressure Comments Prone & supine PT-OP-R Modalities Start: 08/26/21 17:47 Freq: Status: Active Protocol: Document 02/24/22 08:18 LRN (Rec: 02/24/22 09:41 LRN [id number]) Ultrasound Therapy Treatment Lumbar paraspinals Treatment Duration (minutes) 8 Patient Position Prone Coupling Medium Ultrasound Gel Applicator Size (cm2) 10 Mode Setting Pulsed Duty Cycle 50% Intensity Setting (w/cm2) 1.5 PT-OP-S Aquatic Treatment Start: 03/02/22 19:22 Freq: Status: Active Protocol: Document 03/26/22 17:15 SAK (Rec: 03/26/22 17:25 SAK [id number]) Aquatics Treatment Pool Entry/Exit Pool Entry/Exit Method Stairs Assistance Independent Water Walking Marching Water Level Chest Level Walking Equipment Ankle Floats and paddles Level of Assistance Standby Assistance,Verbal Cues Comments cues for neutral postural alignment and core stabilization, arms for drag Sideways Water Level Chest Level Walking Equipment ankle floats and paddles Level of Assistance Standby Assistance,Verbal Cues Comments cues for neutral postural alignment and core stabilization, arms for drag Backwards Water Level Chest Level Level of Assistance Standby Assistance,Verbal Cues Comments cues for neutral postural alignment and core stabilization, arms for drag Forwards Water Level Chest Level Level of Assistance Standby Assistance,Verbal Cues Comments cues for neutral postural alignment and core stabilization, arms for drag Lower Extremity Exercises squats Equipment holding 10# weights (baby) Reps/Duration 10x2 Lower Extremity Stretches piriformis Details ankle across knee; push down, pull toward opp shoulder. Equipment back against wall Reps/Duration 2x30 quad, hip flex Equipment Small Noodle Reps/Duration 2x30 IT band, groin Equipment Small Noodle Reps/Duration 2x30 HS stretch Equipment Small Noodle Reps/Duration 2x30 Upper Extremity Exercises shoulder flex/ext Body Position Standing Water Level Chest Level Equipment UE paddles Reps/Duration 10x symmetrical, 10x opp directions Comments cues for core engagement hor ab/ad Body Position Standing Water Level Chest Level Equipment UE paddles Reps/Duration 10x mariama, 10x unil Comments cues for core engagement pull down Equipment 2 medium barbells Reps/Duration 20x Comments cues for core engagement, neutral postural alignment [place] Activities [place] Activities Bicycle,Bicycle Backwards, Cross Country,Sit Kicks Other Activities intervals run, sit kicks, and x-country x 2 (30: 30) with cues for neutral posture, small, tight movements. Deep water DLS, medium barballs: progressed UE pull downs in 90/90 position Equipment medium barbells PT-OP-T Assessment and Plan Start: 08/26/21 17:47 Freq: Status: Active Protocol: Document 04/07/22 08:19 LRN (Rec: 04/07/22 09:04 LRN [id number]) Physical Therapy Assessment Goals Six Impairment R hip pain rated 4-9/10 Impairment At rest pain is 4/10, with activity pain is 7-9/10. LEFS is 16 (80-99% impaired) Short Term Goal (STG) Decrease R hip pain to no more than 4/10 with activity. (12/30/21: R anterior groin pain is 0/10 at rest). (02/24/22: Pain 6/10 due to recent injury of back) STG Duration 01/31/[address] Goal (LTG) Decrease R hip pain to 0-1/10 at rest with modification to her sitting as needed, and with activity. 03/26/22: good goal progress LTG Duration 05/25/22 Five Impairment Urge incontinence in the presences of a strong urge. 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 (12/17/21: 85% of the time able to maintain continence) (02/24/22: 75% of time able to maintain continecne) LTG Duration 05/25/22 (02/24/22: Progressed ) Four Impairment Pain with palp at 3, 6, 9 of PF Clock Short Term Goal (STG) Pt will be educated in PF stretches. (12/17/21: Not able to do due to hip pain since fall ) (02/24/22: Not able to ex for past week due to recent LBP onset). STG Duration 01/31/22 Retirement Goal (LTG) No pelvic pain with palpation LTG Duration 05/25/22 Three Impairment Pt has difficulty sustaining a Long Hold PF contraction for 10 secs Impairment (Initial: Long Hold 7 secs) Short Term Goal (STG) Pt will be able to perform a PF contraction in the absence of abdominal/gluteal muscles and hold for 5 secs. (09/23/21: Pt able to recognize doing a PF contraction in abscence of substitute muscles). STG Duration 01/31/[address] Goal (LTG) Pt will improve PF endurance of holding 10 secs prior to fatigue and to improve strength to 3/5, with pt able to lift objects without onset of urinary leakage. LTG Duration 05/25/22 Two Impairment Urinary incontinence with a strong cough, sneeze or with laughing. Impairment Initial Quick Flick 0-1 rep Short Term Goal (STG) Improve PF Quick Flick strength with pt able to perform Quick contractions of 5 reps prior to fatigue. STG Duration 01/31/[address] Goal (LTG) Improve PF strength, of Quick Flicks to 3/5 strength, and ability to perform 10 quick flicks prior to fatigue. Pt will be able to maintain continence in the presence of a strong cough, sneeze and with sudden laughing. LTG Duration 05/25/22 One Impairment Pt lacks appropriate self care HEP Short Term Goal (STG) Pt will be independent with a HEP of hip stretches and PF/TA /hip strengthening. (09/23/21: HEP: Verbal I/S : Sit to stands for Quick Flicks and for Long Holds - holding sit<>stand and doing hip ER/IR x 4 between bouts of sit<> stand. HEP: Fig 4 and Piriformis stretch). (12/30/21: Added TA strengthening 4 pt & I/S in sidelie & sup, I/S sitting LE roll in/out). (02/17/22: HEP: HAHA & cough training) STG Duration 01/31/22 (09/23/21: met for hip stretches) Retirement Goal (LTG) Pt will be independent in a self care HEP for PF strengthening. LTG Duration 05/25/22 Assessment Summary Assessment Progression of R hip mobility is limited due to pain; ? labral tear. Pt has good recall of Piriformis and fig 4 stretch. Not able to do Happy Baby Pose due to always R hip pain afterwards. PT needed further training of hands/knees push for TA control, but showed much better control after training. Pt Sacrum in L rot and depressed on R pub. Pt sacrum needs further balancing. Physical Therapy Plan Frequency and Duration Frequency of Treatment 2x/Week Plan of Care Start Date 02/24/22 Plan of Care End Date 05/25/22 Next Visit Focus/Plan Next Note Type Treatment Note Next Visit Plan Aquatic: Pt to complete program with self care aquatic program issued next visit. Clinic: Assess trunk strength. Start with balancing of pelvis after MMT of trunk. Add TA rot strengthening/PF of Hands/Knees push ex. Check proper breathing. Assess performance of proper Kegel without use of substitute muscles and in strengthening of aggrevators. Open pattern for correction to stabilize pelvis if needed, Stabilize core (internal rotator strengthening) and progress PF strengthening, Pt education: proper vulvar/ genital care, deep breathing and transfers, PF/core/hip strengthening, improve hip mobility, improve abdominal soft tissue (bladder) mobility , discuss foods, and water intake. Progress PF/TA/hip strengthening (&HEP), discuss & educate pt in proper squatting and lifting, sit to stand, and moving in bed using breathwork and core/PF stabilization for proper abdominal pressure system, teach proper isolated Kegels for pelvic stabilization, STM of abdomen (and urachus), bladder. Manual therapy for PF pain areas. Aquatic therapy: Continue progression of therapeutic aquatic exercises with emphasis on neutral postural alignment and core stabilization. Manual therapy techniques as indicated.
--- NOTE | 2022-04-09 15:03 | PT.OTN ---
Current Diagnoses Pain in right hip (04/07/22) Postural lordosis, lumbar region (04/07/22) Muscle weakness (generalized) (04/07/22) Mixed incontinence (04/07/22) Urethrocele (04/07/22) Physical Therapy Treatment Note PT-OP-A Visit Information Start: 08/26/21 17:47 Freq: Status: Active Protocol: Document 04/09/22 14:51 LJ (Rec: 04/09/22 15:03 LJ [id number]) Out-Patient Physical Therapy Visit Information Visit Information Visit Type Aquatic Treatment Note Visit Start Time 11:00 Visit Stop Time 11:45 Total Visit Minutes 45 Visit Number 14 Number of UTILITY SPECIALIST Visits 1 Evaluation Information Evaluation Date 08/27/21 Precautions Precautions Diabetes type II, fall resulting in R anterior hip pain. PT-OP-B Current Condition Start: 08/26/21 17:47 Freq: Status: Active Protocol: Document 08/27/21 11:30 LRN (Rec: 08/27/21 12:29 LRN [id number]) Current Condition History of Current Condition Onset Date 05/26/21 Current Complaints Urinary leakage with sneeze or cough and general joint achiness. History of Current Condition Pt is 12 weeks s/p childbirth. Onset of urinary leakage since of son with 58 hour labor suffering a 2nd degree tear. Pt is having moderage urinary leakage, and random drops of leakage. If thinks she has to go, she is not able to wait to void. She leaks with sneezing or coughing. Struggles to move quickly due to excessive mobilty of joints causing soreness of joints everything aches. Pt is currently . At 6 wks physician follow-up with her informatica architect, she was found to have her bladder had descended. Her vaginal incisions was told have healed. 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 Prior Treatments and Tests Computer Programmer Nina said bladder had descended. Developmental History Developmental History Gestational: Diabetes, HTN, and reflux at week 16. Her HTN and reflux has normalized, but she still has type II diabetes. During preganancy: 2 placenta abruptions, Vaginal with vacuum.. 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 Current Functional Impairments (Reported) Functional Limitations- ADL's Urinary leakage with laughing, sneezing, coughing, General joint pains with movement. Functional Limitations- Mobility/Gait Goes sideways down stairs because of weakness and doesn' t feel safe. 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 Personal Factors Other Personal Factors That May Effect Pt reported: Therapy/Recovery Owns & works at [employer]. Hypermobile joints; therefore sitting still for > 5 minutes she has fear of joints moving too much increasing her risk of falling. Couple of times concerned of falling because body isn't moving. PT-OP-C Subjective Start: 08/26/21 17:47 Freq: Status: Active Protocol: Document 04/09/22 14:51 LJ (Rec: 04/09/22 15:03 LJ [id number]) OP-PT Subjective Patient Comments Patient Comments Pt continues to have pain in groin but states she can anticipate movement that will set it off therefore she avoids certin positions. States her last land therapy session was painful with some exercises. PT-OP-I Pelvic Floor Start: 08/26/21 17:47 Freq: Status: Active Protocol: Document 09/13/21 13:35 LRN (Rec: 09/13/21 14:41 LRN [id number]) Pelvic Floor Assessment SEMG (uV) Baseline 0.7 Quick Contraction 5.4 10 Second Contraction 3.1 Recruitment Pattern Fair Relaxation Good Holding Fair Stability of Hold Fair SEMG Stability of Rest Good Comments Pelvic Floor Comments Qiuick Flicks (in microVolts) 10 rep: Avg work 5.4 /Avg rest 2.6 20 reps: Avg work 5.5, Avg rest 2.6 Long Hold (in microVolts): 10 reps: Avg work 3.5 /Avg rest 1.0 20 reps: Avg work 3.1, Avg rest 1.03 PT-OP-J Posture/Palpation/Skin Start: 08/26/21 17:47 Freq: Status: Active Protocol: Document 12/17/21 13:50 LRN (Rec: 12/17/21 16:53 LRN [id number]) Palpation Assessment Location Inferior angle of Pubic Bone Palpation Location R Pub inferior angle Palpation Details Decreased superior glide mobility. L Ischial Tub Palpation Location L Ischial tub for PA in prone. Palpation Details Decreased PA mobility Sacrum Palpation Location Sacrum Palpation Details Sacrum in L rotation and sidebent R with decreased mobility with L Sacral sulcus inferior glide and VAMSI with PA mob in prone. PT-OP-K Range of Motion Start: 08/26/21 17:47 Freq: Status: Active Protocol: Document 08/27/21 11:30 LRN (Rec: 08/27/21 12:29 LRN [id number]) Lumbar Spine Range of Motion Lumbar Spine Active Degrees Testing Position Standing Flexion 75 Extension 25 Rotation Left 20 Rotation Right 30 Lateral Flexion Left 15 Lateral Flexion Right 17 ROM Limitations Soft Tissue Tightness,Muscle Weakness,Pain Comments Trunk flexion is with 45 deg's hip flexion Trunk extension is with 10 deg 's hip extension Hip Goniometric Range of Motion Hip Right Passive Testing Position Supine Abduction 30 Internal Rotation 15 External Rotation 75 Left Passive Testing Position Supine Abduction 45 Internal Rotation 20 External Rotation 70 PT-OP-M Strength Start: 08/26/21 17:47 Freq: Status: Active Protocol: Document 12/17/21 13:50 LRN (Rec: 12/17/21 16:53 LRN [id number]) Trunk Strength Trunk Manual Muscle Testing Rotation Left 2 Poor Rotation Right 2 Poor Core Stabilization Pt not able to perform a TA contraction in lower abdomen ( umbilicus and below). PT-OP-Q Treatments Start: 08/26/21 17:47 Freq: Status: Active Protocol: Document 04/07/22 08:19 LRN (Rec: 04/07/22 09:04 LRN [id number]) Therapeutic Exercises Supine Exercises Happy Baby Pose Supine Exercise Name Happy Baby Pose -DC due to R hip pain Reps/Minutes 1' Hamstring stretch Supine Exercise Name PSLR - MWM on return of R hip AP glide & hip mvmt to ADD Side bilateral Reps/Minutes 4' Comments Very painful on R hip on return to start position Hands/Knees Push Supine Exercise Name TA: Hands/knees push Reps/Minutes 6' Trunk rot Supine Exercise Name Kneed 90/90, hands press into thighs Side bilateral Reps/Minutes 4' Hip IR stretch Supine Exercise Name Piriformis - quick teaching with RLE Side bilateral Reps/Minutes 4' Hip ER stretch Supine Exercise Name Fig 4 stretch Side bilateral Reps/Minutes 5' Comments Extra time on R to move slowly out of stretch position Manual Therapy Treatment Soft Tissue Mobilization Balancing of pelvis Body Location Balancing pelvis Mobilization Type Sustained Pressure Comments Prone & supine PT-OP-R Modalities Start: 08/26/21 17:47 Freq: Status: Active Protocol: Document 02/24/22 08:18 LRN (Rec: 02/24/22 09:41 LRN [id number]) Ultrasound Therapy Treatment Lumbar paraspinals Treatment Duration (minutes) 8 Patient Position Prone Coupling Medium Ultrasound Gel Applicator Size (cm2) 10 Mode Setting Pulsed Duty Cycle 50% Intensity Setting (w/cm2) 1.5 PT-OP-S Aquatic Treatment Start: 03/02/22 19:22 Freq: Status: Active Protocol: Document 04/09/22 14:51 LJ (Rec: 04/09/22 15:03 LJ [id number]) Aquatics Treatment Pool Entry/Exit Pool Entry/Exit Method Stairs Assistance Independent Water Walking Marching Water Level Chest Level Walking Equipment Ankle Floats and paddles Level of Assistance Standby Assistance,Verbal Cues Comments cues for neutral postural alignment and core stabilization, arms for drag Sideways Water Level Chest Level Walking Equipment ankle floats and paddles Level of Assistance Standby Assistance,Verbal Cues Comments cues for neutral postural alignment and core stabilization, arms for drag Backwards Water Level Chest Level Level of Assistance Standby Assistance,Verbal Cues Comments cues for neutral postural alignment and core stabilization, arms for drag Forwards Water Level Chest Level Level of Assistance Standby Assistance,Verbal Cues Comments cues for neutral postural alignment and core stabilization, arms for drag Lower Extremity Exercises 4 way hip Body Position Standing Water Level Waist Level Reps/Duration 10 B each exercise Comments gentle mvmt within painfree ROM Lower Extremity Stretches piriformis Details ankle across knee; push down, pull toward opp shoulder. Equipment back against wall Reps/Duration 2x30 quad, hip flex Equipment Small Noodle Reps/Duration 2x30 IT band, groin Equipment Small Noodle Reps/Duration 2x30 HS stretch Equipment Small Noodle Reps/Duration 2x30 Upper Extremity Exercises shoulder flex/ext Body Position Standing Water Level Chest Level Equipment UE paddles Reps/Duration 10x symmetrical, 10x opp directions Comments cues for core engagement hor ab/ad Body Position Standing Water Level Chest Level Equipment UE paddles Reps/Duration 10x mariama, 10x unil Comments cues for core engagement pull down Equipment 2 medium barbells Reps/Duration 20x Comments cues for core engagement, neutral postural alignment Spinal Exercises wall squat DLS Details with shld hor ab/ad, flex/ext, marching Body Position Sitting Water Level Neck Level Reps/Duration 10x mariama, 10x unil Comments holding 2# weight against wall Frederick Activities Frederick Activities Bicycle,Bicycle Backwards, Cross Country,Sit Kicks Other Activities Deep water DLS, medium barballs: progressed UE pull downs in 90/90 position Equipment medium barbells PT-OP-T Assessment and Plan Start: 08/26/21 17:47 Freq: Status: Active Protocol: Document 04/09/22 14:51 LJ (Rec: 04/09/22 15:03 [id number]) Physical Therapy Assessment Goals Six Impairment R hip pain rated 4-9/10 Impairment At rest pain is 4/10, with activity pain is 7-9/10. LEFS is 16 (80-99% impaired) Short Term Goal (STG) Decrease R hip pain to no more than 4/10 with activity. (12/30/21: R anterior groin pain is 0/10 at rest). (02/24/22: Pain 6/10 due to recent injury of back) STG Duration 01/31/22 Coat Tailor Goal (LTG) Decrease R hip pain to 0-1/10 at rest with modification to her sitting as needed, and with activity. 03/26/22: good goal progress LTG Duration 05/25/22 Five Impairment Urge incontinence in the presences of a strong urge. Short Term Goal (STG) Pt will be educated in Urge deference technique STG Duration 09/06/21 (09/13/21: MET GOAL) Intermediate Goal (LTG) Pt will be able to remain continent in the presence of a strong urge. (12/17/21: 85% of the time able to maintain continence) (02/24/22: 75% of time able to maintain continecne) LTG Duration 05/25/22 (02/24/22: Progressed ) Four Impairment Pain with palp at 3, 6, 9 of PF Clock Short Term Goal (STG) Pt will be educated in PF stretches. (12/17/21: Not able to do due to hip pain since fall ) (02/24/22: Not able to ex for past week due to recent LBP onset). STG Duration 01/31/22 Coat Tailor Goal (LTG) No pelvic pain with palpation LTG Duration 05/25/22 Three Impairment Pt has difficulty sustaining a Long Hold PF contraction for 10 secs Impairment (Initial: Long Hold 7 secs) Short Term Goal (STG) Pt will be able to perform a PF contraction in the absence of abdominal/gluteal muscles and hold for 5 secs. (09/23/21: Pt able to recognize doing a PF contraction in abscence of substitute muscles). STG Duration 01/31/22 Coat Tailor Goal (LTG) Pt will improve PF endurance of holding 10 secs prior to fatigue and to improve strength to 3/5, with pt able to lift objects without onset of urinary leakage. LTG Duration 05/25/22 Two Impairment Urinary incontinence with a strong cough, sneeze or with laughing. Impairment Initial Quick Flick 0-1 rep Short Term Goal (STG) Improve PF Quick Flick strength with pt able to perform Quick contractions of 5 reps prior to fatigue. STG Duration 01/31/22 Intermediate Goal (LTG) Improve PF strength, of Quick Flicks to 3/5 strength, and ability to perform 10 quick flicks prior to fatigue. Pt will be able to maintain continence in the presence of a strong cough, sneeze and with sudden laughing. LTG Duration 05/25/22 One Impairment Pt lacks appropriate self care HEP Short Term Goal (STG) Pt will be independent with a HEP of hip stretches and PF/TA /hip strengthening. (09/23/21: HEP: Verbal I/S : Sit to stands for Quick Flicks and for Long Holds - holding sit<>stand and doing hip ER/IR x 4 between bouts of sit<> stand. HEP: Fig 4 and Piriformis stretch). (12/30/21: Added TA strengthening 4 pt & I/S in sidelie & sup, I/S sitting LE roll in/out). (02/17/22: HEP: HAHA & cough training) STG Duration 01/31/22 (09/23/21: met for hip stretches) Intermediate Goal (LTG) Pt will be independent in a self care HEP for PF strengthening. LTG Duration 05/25/22 Assessment Summary Assessment Pt tolerated exercises well with no increase in pain other than with endrange flexion in deep water DLS technique with LE movement while stabilizing . Pt will be given aquatic HEP for continued exercise on her own. Physical Therapy Plan Frequency and Duration Frequency of Treatment 2x/Week Plan of Care Start Date 02/24/22 Plan of Care End Date 05/25/22 Next Visit Focus/Plan Next Note Type Treatment Note Next Visit Plan Aquatic: Pt to complete program with self care aquatic program issued next visit. Clinic: Assess trunk strength. Start with balancing of pelvis after MMT of trunk. Add TA rot strengthening/PF of Hands/Knees push ex. Check proper breathing. Assess performance of proper Kegel without use of substitute muscles and in strengthening of aggrevators. Open pattern for correction to stabilize pelvis if needed, Stabilize core (internal rotator strengthening) and progress PF strengthening, Pt education: proper vulvar/ genital care, deep breathing and transfers, PF/core/hip strengthening, improve hip mobility, improve abdominal soft tissue (bladder) mobility , discuss foods, and water intake. Progress PF/TA/hip strengthening (&HEP), discuss & educate pt in proper squatting and lifting, sit to stand, and moving in bed using breathwork and core/PF stabilization for proper abdominal pressure system, teach proper isolated Kegels for pelvic stabilization, STM of abdomen (and urachus), bladder. Manual therapy for PF pain areas. Aquatic therapy: Continue progression of therapeutic aquatic exercises with emphasis on neutral postural alignment and core stabilization. Manual therapy techniques as indicated.
--- NOTE | 2022-04-24 16:51 | PT.OTN ---
Current Diagnoses Pain in right hip (04/24/22) Postural lordosis, lumbar region (04/24/22) Muscle weakness (generalized) (04/24/22) Mixed incontinence (04/24/22) Urethrocele (04/24/22) Physical Therapy Treatment Note PT-OP-A Visit Information Start: 08/26/21 17:47 Freq: Status: Active Protocol: Document 04/24/22 14:38 LRN (Rec: 04/24/22 16:49 LRN [id number]) Out-Patient Physical Therapy Visit Information Visit Information Visit Type Treatment Note Visit Start Time 14:38 Visit Stop Time 15:18 Total Visit Minutes 40 Visit Number 15 PT-OP-B Current Condition Start: 08/26/21 17:47 Freq: Status: Active Protocol: Document 08/27/21 11:30 LRN (Rec: 08/27/21 12:29 LRN [id number]) Current Condition History of Current Condition Onset Date 05/26/21 Current Complaints Urinary leakage with sneeze or cough and general joint achiness. History of Current Condition Pt is 12 weeks s/p childbirth. Onset of urinary leakage since of son with 58 hour labor suffering a 2nd degree tear. Pt is having moderage urinary leakage, and random drops of leakage. If thinks she has to go, she is not able to wait to void. She leaks with sneezing or coughing. Struggles to move quickly due to excessive mobilty of joints causing soreness of joints everything aches. Pt is currently . At 6 wks physician follow-up with her beverage specialist, she was found to have her bladder had descended. Her vaginal incisions [facility] was told have healed. 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 Developmental History Developmental History Gestational: Diabetes, HTN, and reflux at week 16. Her HTN and reflux has normalized, but she still has type II diabetes. During preganancy: 2 placenta abruptions, Vaginal with vacuum.. 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 Current Functional Impairments (Reported) Functional Limitations- ADL's Urinary leakage with laughing, sneezing, coughing, General joint pains with movement. Functional Limitations- Mobility/Gait Goes sideways down stairs because of weakness and doesn' t feel safe. 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 Hypermobile joints; therefore sitting still for > 5 minutes she has fear of joints moving too much increasing her risk of falling. Couple of times concerned of falling because body isn't moving. PT-OP-C Subjective Start: 08/26/21 17:47 Freq: Status: Active Protocol: Document 04/24/22 14:38 LRN (Rec: 04/24/22 16:49 LRN [id number]) OP-PT Subjective Patient Comments Patient Comments States she fell through a landing while ascending 9 days ago at [employer]. She was hanging on landing with her R lower leg and L arm. Having Pain in R groin that is now a dull ache, not sharp anymore. Dull ache pain is 4- 5/10. Standing is 7-8/10. PT-OP-I Pelvic Floor Start: 08/26/21 17:47 Freq: Status: Active Protocol: Document 09/13/21 13:35 LRN (Rec: 09/13/21 14:41 LRN [id number]) Pelvic Floor Assessment SEMG (uV) Baseline 0.7 Quick Contraction 5.4 10 Second Contraction 3.1 Recruitment Pattern Fair Relaxation Good Holding Fair Stability of Hold Fair SEMG Stability of Rest Good Comments Pelvic Floor Comments Qiuick Flicks (in microVolts) 10 rep: Avg work 5.4 /Avg rest 2.6 20 reps: Avg work 5.5, Avg rest 2.6 Long Hold (in microVolts): 10 reps: Avg work 3.5 /Avg rest 1.0 20 reps: Avg work 3.1, Avg rest 1.03 PT-OP-J Posture/Palpation/Skin Start: 08/26/21 17:47 Freq: Status: Active Protocol: Document 04/24/22 14:38 LRN (Rec: 04/24/22 16:49 LRN [id number]) Palpation Assessment Location Low back Palpation Location Ankles. Palpation Details Standing: R iliac crest high, R PSIS high. Supine - R leg is long. Long Sit- R leg long. PSLR is 90 deg's bilaterally. Post Treatment: Level Iliac Crests and equal leg lengths in supine. PT-OP-K Range of Motion Start: 08/26/21 17:47 Freq: Status: Active Protocol: Document 08/27/21 11:30 LRN (Rec: 08/27/21 12:29 LRN [id number]) Lumbar Spine Range of Motion Lumbar Spine Active Degrees Testing Position Standing Flexion 75 Extension 25 Rotation Left 20 Rotation Right 30 Lateral Flexion Left 15 Lateral Flexion Right 17 ROM Limitations Soft Tissue Tightness,Muscle Weakness,Pain Comments Trunk flexion is with 45 deg's hip flexion Trunk extension is with 10 deg 's hip extension Hip Goniometric Range of Motion Hip Right Passive Testing Position Supine Abduction 30 Internal Rotation 15 External Rotation 75 Left Passive Testing Position Supine Abduction 45 Internal Rotation 20 External Rotation 70 PT-OP-M Strength Start: 08/26/21 17:47 Freq: Status: Active Protocol: Document 12/17/21 13:50 LRN (Rec: 12/17/21 16:53 LRN [id number]) Trunk Strength Trunk Manual Muscle Testing Rotation Left 2 Poor Rotation Right 2 Poor Core Stabilization Pt not able to perform a TA contraction in lower abdomen ( umbilicus and below). PT-OP-Q Treatments Start: 08/26/21 17:47 Freq: Status: Active Protocol: Document 04/24/22 14:38 LRN (Rec: 04/24/22 16:49 LRN [id number]) Therapeutic Exercises Supine Exercises PSLR Supine Exercise Name PSLR Side bilateral Reps/Minutes 1' Comments ROM taken, 90 deg's bilaterally Manual Therapy Treatment Soft Tissue Mobilization Balancing of pelvis Body Location Balancing pelvis Mobilization Type Sustained Pressure Comments Prone & supine Joint Mobilizations R SIJ Joint R SIJ Direction Correcting anterior rot'd R SIJ Body Position Supine Reps/Duration 15' Comments Pain with earl hip AD, and when flexing R hip. Slow mvmts needed. Self-Care/Home Management Treatment Activities Self-Care/Home Management Activities Reviewed with pt equal WBing on LE's, Equal moving when sitting and equal WBing through Ischial Tubs. PT-OP-R Modalities Start: 08/26/21 17:47 Freq: Status: Active Protocol: Document 02/24/22 08:18 LRN (Rec: 02/24/22 09:41 LRN [id number]) Ultrasound Therapy Treatment Lumbar paraspinals Treatment Duration (minutes) 8 Patient Position Prone Coupling Medium Ultrasound Gel Applicator Size (cm2) 10 Mode Setting Pulsed Duty Cycle 50% Intensity Setting (w/cm2) 1.5 PT-OP-S Aquatic Treatment Start: 03/02/22 19:22 Freq: Status: Active Protocol: Document 04/09/22 14:51 LJ (Rec: 04/09/22 15:03 LJ [id number]) Aquatics Treatment Pool Entry/Exit Pool Entry/Exit Method Stairs Assistance Independent Water Walking Marching Water Level Chest Level Walking Equipment Ankle Floats and paddles Level of Assistance Standby Assistance,Verbal Cues Comments cues for neutral postural alignment and core stabilization, arms for drag Sideways Water Level Chest Level Walking Equipment ankle floats and paddles Level of Assistance Standby Assistance,Verbal Cues Comments cues for neutral postural alignment and core stabilization, arms for drag Backwards Water Level Chest Level Level of Assistance Standby Assistance,Verbal Cues Comments cues for neutral postural alignment and core stabilization, arms for drag Forwards Water Level Chest Level Level of Assistance Standby Assistance,Verbal Cues Comments cues for neutral postural alignment and core stabilization, arms for drag Lower Extremity Exercises 4 way hip Body Position Standing Water Level Waist Level Reps/Duration 10 B each exercise Comments gentle mvmt within painfree ROM Lower Extremity Stretches piriformis Details ankle across knee; push down, pull toward opp shoulder. Equipment back against wall Reps/Duration 2x30 quad, hip flex Equipment Small Noodle Reps/Duration 2x30 IT band, groin Equipment Small Noodle Reps/Duration 2x30 HS stretch Equipment Small Noodle Reps/Duration 2x30 Upper Extremity Exercises shoulder flex/ext Body Position Standing Water Level Chest Level Equipment UE paddles Reps/Duration 10x symmetrical, 10x opp directions Comments cues for core engagement hor ab/ad Body Position Standing Water Level Chest Level Equipment UE paddles Reps/Duration 10x mariama, 10x unil Comments cues for core engagement pull down Equipment 2 medium barbells Reps/Duration 20x Comments cues for core engagement, neutral postural alignment Spinal Exercises wall squat DLS Details with shld hor ab/ad, flex/ext, marching Body Position Sitting Water Level Neck Level Reps/Duration 10x mariama, 10x unil Comments holding 2# weight against wall Franklin Activities Franklin Activities Bicycle,Bicycle Backwards, Cross Country,Sit Kicks Other Activities Deep water DLS, medium barballs: progressed UE pull downs in 90/90 position Equipment medium barbells PT-OP-T Assessment and Plan Start: 08/26/21 17:47 Freq: Status: Active Protocol: Document 04/24/22 14:38 LRN (Rec: 04/24/22 16:49 LRN [id number]) Physical Therapy Assessment Goals Five Impairment Urge incontinence in the presences of a strong urge. Short Term Goal (STG) Pt will be educated in Urge deference technique STG Duration 09/06/21 (09/13/21: MET GOAL) Fdc Goal (LTG) Pt will be able to remain continent in the presence of a strong urge. (12/17/21: 85% of the time able to maintain continence) (02/24/22: 75% of time able to maintain continecne) LTG Duration 05/25/22 (02/24/22: Progressed ) Four Impairment Pain with palp at 3, 6, 9 of PF Clock Short Term Goal (STG) Pt will be educated in PF stretches. (12/17/21: Not able to do due to hip pain since fall ) (02/24/22: Not able to ex for past week due to recent LBP onset). STG Duration 01/31/22 Derrickman Helper Goal (LTG) No pelvic pain with palpation LTG Duration 05/25/22 Three Impairment Pt has difficulty sustaining a Long Hold PF contraction for 10 secs Impairment (Initial: Long Hold 7 secs) Short Term Goal (STG) Pt will be able to perform a PF contraction in the absence of abdominal/gluteal muscles and hold for 5 secs. (09/23/21: Pt able to recognize doing a PF contraction in abscence of substitute muscles). STG Duration 01/31/22 Derrickman Helper Goal (LTG) Pt will improve PF endurance of holding 10 secs prior to fatigue and to improve strength to 3/5, with pt able to lift objects without onset of urinary leakage. LTG Duration 05/25/22 Two Impairment Urinary incontinence with a strong cough, sneeze or with laughing. Impairment Initial Quick Flick 0-1 rep Short Term Goal (STG) Improve PF Quick Flick strength with pt able to perform Quick contractions of 5 reps prior to fatigue. STG Duration 01/31/22 Fdc Goal (LTG) Improve PF strength, of Quick Flicks to 3/5 strength, and ability to perform 10 quick flicks prior to fatigue. Pt will be able to maintain continence in the presence of a strong cough, sneeze and with sudden laughing. LTG Duration 05/25/22 One Impairment Pt lacks appropriate self care HEP Short Term Goal (STG) Pt will be independent with a HEP of hip stretches and PF/TA /hip strengthening. (09/23/21: HEP: Verbal I/S : Sit to stands for Quick Flicks and for Long Holds - holding sit<>stand and doing hip ER/IR x 4 between bouts of sit<> stand. HEP: Fig 4 and Piriformis stretch). (12/30/21: Added TA strengthening 4 pt & I/S in sidelie & sup, I/S sitting LE roll in/out). (02/17/22: HEP: HAHA & cough training) STG Duration 01/31/22 (09/23/21: met for hip stretches) Fdc Goal (LTG) Pt will be independent in a self care HEP for PF strengthening. LTG Duration 05/25/22 Assessment Summary Assessment Pt presents with R innominate anterior rot & inflare. Pt tolerated outflare treatment on L side better. Pt did have pain discomfort with R innominate treatment for rot; therefore treatment L may be better tolerated. + response to Sacral balancing manual therapy, with no c/o pain after treatment. Pt not icing enough at home. Physical Therapy Plan Frequency and Duration Frequency of Treatment 2x/Week Plan of Care Start Date 02/24/22 Plan of Care End Date 05/25/22 Next Visit Focus/Plan Next Note Type Treatment Note Next Visit Plan Aquatic: Pt to complete program with self care aquatic program issued next visit. Clinic: Assess response to manual therapy treatment. Check trunk strength, then start with balancing of pelvis . Add TA rot strengthening/PF of Hands/Knees push ex. Check proper breathing. Assess performance of proper Kegel without use of substitute muscles and in strengthening of aggrevators. Open pattern for correction to stabilize pelvis as needed, Stabilize core (internal rotator strengthening) and progress PF strengthening, Pt education: proper vulvar/ genital care, deep breathing and transfers, PF/core/hip strengthening, improve hip mobility, improve abdominal soft tissue (bladder) mobility , discuss foods, and water intake. Progress PF/TA/hip strengthening (&HEP), discuss & educate pt in proper squatting and lifting, sit to stand, and moving in bed using breathwork and core/PF stabilization for proper abdominal pressure system, teach proper isolated Kegels for pelvic stabilization, STM of abdomen (and urachus), bladder. Manual therapy for PF pain areas. Aquatic therapy: Continue progression of therapeutic aquatic exercises with emphasis on neutral postural alignment and core stabilization. Manual therapy techniques as indicated.
--- NOTE | 2022-04-29 09:29 | PT.OTN ---
Current Diagnoses Pain in right hip (04/29/22) Postural lordosis, lumbar region (04/29/22) Muscle weakness (generalized) (04/29/22) Mixed incontinence (04/29/22) Urethrocele (04/29/22) Physical Therapy Treatment Note PT-OP-A Visit Information Start: 08/26/21 17:47 Freq: Status: Active Protocol: Document 04/29/22 08:15 LRN (Rec: 04/29/22 09:01 LRN [id number]) Out-Patient Physical Therapy Visit Information Visit Information Visit Type Treatment Note Visit Start Time 08:15 Visit Stop Time 08:56 Total Visit Minutes 41 Visit Number 26 Evaluation Information Evaluation Date 08/27/21 Precautions Precautions Diabetes type II, fall backward tripping over a bag 10/10/22 resulting in R anterior hip pain, recent fall through landing 04/15/22 increasing R LBP. PT-OP-B Current Condition Start: 08/26/21 17:47 Freq: Status: Active Protocol: Document 08/27/21 11:30 LRN (Rec: 08/27/21 12:29 LRN [id number]) Current Condition History of Current Condition Onset Date 05/26/21 Current Complaints Urinary leakage with sneeze or cough and general joint achiness. History of Current Condition Pt is 12 weeks s/p childbirth. Onset of urinary leakage since of son with 58 hour labor suffering a 2nd degree tear. Pt is having moderage urinary leakage, and random drops of leakage. If thinks she has to go, she is not able to wait to void. She leaks with sneezing or coughing. Struggles to move quickly due to excessive mobilty of joints causing soreness of joints everything aches. Pt is currently . 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 Her vaginal incisions [facility] was told have healed. 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 Prior Treatments and Tests Endocrinology Teacher Nina said bladder had descended. Developmental History Developmental History Gestational: Diabetes, HTN, and reflux at week 16. Her HTN and reflux has normalized, but she still has type II diabetes. During preganancy: 2 placenta abruptions, Vaginal with vacuum.. 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 Current Functional Impairments (Reported) Functional Limitations- ADL's Urinary leakage with laughing, sneezing, coughing, General joint pains with movement. Functional Limitations- Mobility/Gait Goes sideways down stairs because of weakness and doesn' t feel safe. 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 Hypermobile joints; therefore sitting still for > 5 minutes she has fear of joints moving too much increasing her risk of falling. Couple of times concerned of falling because body isn't moving. PT-OP-C Subjective Start: 08/26/21 17:47 Freq: Status: Active Protocol: Document 04/29/22 08:15 LRN (Rec: 04/29/22 09:01 LRN [id number]) OP-PT Subjective Patient Comments Patient Comments R hip pain is 6-7/10 since return from trip. [place] off kilter all day after last treatment and was sore throughout the drive to [place] and flight back. Got back 2a yesterday morning. Didn't leak, was close call. PT-OP-I Pelvic Floor Start: 08/26/21 17:47 Freq: Status: Active Protocol: Document 09/13/21 13:35 LRN (Rec: 09/13/21 14:41 LRN [id number]) Pelvic Floor Assessment SEMG (uV) Baseline 0.7 Quick Contraction 5.4 10 Second Contraction 3.1 Recruitment Pattern Fair Relaxation Good Holding Fair Stability of Hold Fair SEMG Stability of Rest Good Comments Pelvic Floor Comments Qiuick Flicks (in microVolts) 10 rep: Avg work 5.4 /Avg rest 2.6 20 reps: Avg work 5.5, Avg rest 2.6 Long Hold (in microVolts): 10 reps: Avg work 3.5 /Avg rest 1.0 20 reps: Avg work 3.1, Avg rest 1.03 PT-OP-J Posture/Palpation/Skin Start: 08/26/21 17:47 Freq: Status: Active Protocol: Document 04/24/22 14:38 LRN (Rec: 04/24/22 16:49 LRN [id number]) Palpation Assessment Location Low back Palpation Location Ankles. Palpation Details Standing: R iliac crest high, R PSIS high. Supine - R leg is long. Long Sit- R leg long. PSLR is 90 deg's bilaterally. Post Treatment: Level Iliac Crests and equal leg lengths in supine. PT-OP-K Range of Motion Start: 08/26/21 17:47 Freq: Status: Active Protocol: Document 08/27/21 11:30 LRN (Rec: 08/27/21 12:29 LRN [id number]) Lumbar Spine Range of Motion Lumbar Spine Active Degrees Testing Position Standing Flexion 75 Extension 25 Rotation Left 20 Rotation Right 30 Lateral Flexion Left 15 Lateral Flexion Right 17 ROM Limitations Soft Tissue Tightness,Muscle Weakness,Pain Comments Trunk flexion is with 45 deg's hip flexion Trunk extension is with 10 deg 's hip extension Hip Goniometric Range of Motion Hip Right Passive Testing Position Supine Abduction 30 Internal Rotation 15 External Rotation 75 Left Passive Testing Position Supine Abduction 45 Internal Rotation 20 External Rotation 70 PT-OP-M Strength Start: 08/26/21 17:47 Freq: Status: Active Protocol: Document 12/17/21 13:50 LRN (Rec: 12/17/21 16:53 LRN [id number]) Trunk Strength Trunk Manual Muscle Testing Rotation Left 2 Poor Rotation Right 2 Poor Core Stabilization Pt not able to perform a TA contraction in lower abdomen ( umbilicus and below). PT-OP-Q Treatments Start: 08/26/21 17:47 Freq: Status: Active Protocol: Document 04/29/22 08:15 LRN (Rec: 04/29/22 09:01 LRN [id number]) Therapeutic Exercises Supine Exercises KTC for Iliopsoas stretch Supine Exercise Name KTC - R Iliopsoas stretch, then sup for L Ilipsoas stretch Side left Reps/Minutes 3' LE Roll in/outs w/DB/PF Supine Exercise Name Rol in/out with knees bent/PF/ TA Side bilateral Reps/Minutes 20x slowly Manual Therapy Treatment Soft Tissue Mobilization Lower abdomen Body Location Lower abdomen (bladder/uterus) Mobilization Type Sustained Pressure Intensity/Depth Moderate Body Position Supine Comments Bladder R rotated on Uterus, corrected R gluteals Body Location R gluteals Mobilization Type Strumming Intensity/Depth Moderate Body Position Prone Comments pillow above breast, towel roll under forehead Low back Body Location Low back Mobilization Type Strumming Intensity/Depth Moderate Body Position Prone Comments pillow above breast, towel roll under forehead Sacrum Body Location Sacral border Mobilization Type Strumming Intensity/Depth Moderate Body Position Prone Comments pillow above breast, towel roll under forehead PT-OP-R Modalities Start: 08/26/21 17:47 Freq: Status: Active Protocol: Document 02/24/22 08:18 LRN (Rec: 02/24/22 09:41 LRN [id number]) Ultrasound Therapy Treatment Lumbar paraspinals Treatment Duration (minutes) 8 Patient Position Prone Coupling Medium Ultrasound Gel Applicator Size (cm2) 10 Mode Setting Pulsed Duty Cycle 50% Intensity Setting (w/cm2) 1.5 PT-OP-S Aquatic Treatment Start: 03/02/22 19:22 Freq: Status: Active Protocol: Document 04/09/22 14:51 LJ (Rec: 04/09/22 15:03 LJ [id number]) Aquatics Treatment Pool Entry/Exit Pool Entry/Exit Method Stairs Assistance Independent Water Walking Marching Water Level Chest Level Walking Equipment Ankle Floats and paddles Level of Assistance Standby Assistance,Verbal Cues Comments cues for neutral postural alignment and core stabilization, arms for drag Sideways Water Level Chest Level Walking Equipment ankle floats and paddles Level of Assistance Standby Assistance,Verbal Cues Comments cues for neutral postural alignment and core stabilization, arms for drag Backwards Water Level Chest Level Level of Assistance Standby Assistance,Verbal Cues Comments cues for neutral postural alignment and core stabilization, arms for drag Forwards Water Level Chest Level Level of Assistance Standby Assistance,Verbal Cues Comments cues for neutral postural alignment and core stabilization, arms for drag Lower Extremity Exercises 4 way hip Body Position Standing Water Level Waist Level Reps/Duration 10 B each exercise Comments gentle mvmt within painfree ROM Lower Extremity Stretches piriformis Details ankle across knee; push down, pull toward opp shoulder. Equipment back against wall Reps/Duration 2x30 quad, hip flex Equipment Small Noodle Reps/Duration 2x30 IT band, groin Equipment Small Noodle Reps/Duration 2x30 HS stretch Equipment Small Noodle Reps/Duration 2x30 Upper Extremity Exercises shoulder flex/ext Body Position Standing Water Level Chest Level Equipment UE paddles Reps/Duration 10x symmetrical, 10x opp directions Comments cues for core engagement hor ab/ad Body Position Standing Water Level Chest Level Equipment UE paddles Reps/Duration 10x mariama, 10x unil Comments cues for core engagement pull down Equipment 2 medium barbells Reps/Duration 20x Comments cues for core engagement, neutral postural alignment Spinal Exercises wall squat DLS Details with shld hor ab/ad, flex/ext, marching Body Position Sitting Water Level Neck Level Reps/Duration 10x mariama, 10x unil Comments holding 2# weight against wall Shirley Activities Shirley Activities Bicycle,Bicycle Backwards, Cross Country,Sit Kicks Other Activities Deep water DLS, medium barballs: progressed UE pull downs in 90/90 position Equipment medium barbells PT-OP-T Assessment and Plan Start: 08/26/21 17:47 Freq: Status: Active Protocol: Document 04/29/22 08:15 LRN (Rec: 04/29/22 09:01 LRN [id number]) Physical Therapy Assessment Goals Six Impairment R hip pain rated 4-9/10 Impairment At rest pain is 4/10, with activity pain is 7-9/10. LEFS is 16 (80-99% impaired) Short Term Goal (STG) Decrease R hip pain to no more than 4/10 with activity. (12/30/21: R anterior groin pain is 0/10 at rest). (02/24/22: Pain 6/10 due to recent injury of back) STG Duration 01/31/22 Promotions Officer Goal (LTG) Decrease R hip pain to 0-1/10 at rest with modification to her sitting as needed, and with activity. 03/26/22: good goal progress LTG Duration 05/25/22 Five Impairment Urge incontinence in the presences of a strong urge. Short Term Goal (STG) Pt will be educated in Urge deference technique STG Duration 09/06/21 (09/13/21: MET GOAL) Half-Way Goal (LTG) Pt will be able to remain continent in the presence of a strong urge. (12/17/21: 85% of the time able to maintain continence) (02/24/22: 75% of time able to maintain continecne) LTG Duration 05/25/22 (02/24/22: Progressed ) Four Impairment Pain with palp at 3, 6, 9 of PF Clock Short Term Goal (STG) Pt will be educated in PF stretches. (12/17/21: Not able to do due to hip pain since fall ) (02/24/22: Not able to ex for past week due to recent LBP onset). STG Duration 01/31/22 Half-Way Goal (LTG) No pelvic pain with palpation LTG Duration 05/25/22 Three Impairment Pt has difficulty sustaining a Long Hold PF contraction for 10 secs Impairment (Initial: Long Hold 7 secs) Short Term Goal (STG) Pt will be able to perform a PF contraction in the absence of abdominal/gluteal muscles and hold for 5 secs. (09/23/21: Pt able to recognize doing a PF contraction in abscence of substitute muscles). STG Duration 01/31/22 Half-Way Goal (LTG) Pt will improve PF endurance of holding 10 secs prior to fatigue and to improve strength to 3/5, with pt able to lift objects without onset of urinary leakage. LTG Duration 05/25/22 Two Impairment Urinary incontinence with a strong cough, sneeze or with laughing. Impairment Initial Quick Flick 0-1 rep Short Term Goal (STG) Improve PF Quick Flick strength with pt able to perform Quick contractions of 5 reps prior to fatigue. STG Duration 01/31/22 Promotions Officer Goal (LTG) Improve PF strength, of Quick Flicks to 3/5 strength, and ability to perform 10 quick flicks prior to fatigue. Pt will be able to maintain continence in the presence of a strong cough, sneeze and with sudden laughing. LTG Duration 05/25/22 One Impairment Pt lacks appropriate self care HEP Short Term Goal (STG) Pt will be independent with a HEP of hip stretches and PF/TA /hip strengthening. (09/23/21: HEP: Verbal I/S : Sit to stands for Quick Flicks and for Long Holds - holding sit<>stand and doing hip ER/IR x 4 between bouts of sit<> stand. HEP: Fig 4 and Piriformis stretch). (12/30/21: Added TA strengthening 4 pt & I/S in sidelie & sup, I/S sitting LE roll in/out). (02/17/22: HEP: HAHA & cough training) STG Duration 01/31/22 (09/23/21: met for hip stretches) Promotions Officer Goal (LTG) Pt will be independent in a self care HEP for PF strengthening. LTG Duration 05/25/22 Assessment Summary Assessment PF progress hindered due to R LB/hip pain and R anterior groin pain. Pt may need assessment of R hip if pain persists. Pt pelvis appears balanced since last session, pain today along sacral border . Irritation to sacral nerves from prolonged sitting after driving to [place] and flying home. Decreased in urinary leakage complaints. Physical Therapy Plan Frequency and Duration Frequency of Treatment 2x/Week Plan of Care Start Date 02/24/22 Plan of Care End Date 05/25/22 Next Visit Focus/Plan Next Note Type Treatment Note Next Visit Plan Aquatic: Pt to complete program with self care aquatic program issued at next aquatic visit. Aquatic: Continue progression of therapeutic aquatic exercises with emphasis on neutral postural alignment and core stabilization. Manual therapy techniques as indicated. Clinic: Check proper breathing . Check trunk strength. Assess PF strength if pt able to tolerate prolonged positioning supine for assessment, and progress to goal. Refer for hip assessment if pain persists. Add TA rot strengthening/PF of Hands/Knees push ex. Assess performance of proper Kegel without use of substitute muscles and in strengthening of aggrevators. Stabilize core (internal rotator strengthening) and progress PF strengthening, Pt education: proper vulvar/ genital care, discuss foods, and water intake, proper squatting and lifting, sit to stand, and moving in bed using proper breathwork, Ther Ex & HEP: Progress PF/ core/hip strengthening, improve hip mobility. Manual therapy: PF pain areas , STM of abdomen (and urachus) , improve bladder mobility.
--- NOTE | 2022-05-06 18:02 | PT.OTN ---
Current Diagnoses Pain in right hip (05/06/22) Postural lordosis, lumbar region (05/06/22) Muscle weakness (generalized) (05/06/22) Mixed incontinence (05/06/22) Urethrocele (05/06/22) Physical Therapy Treatment Note PT-OP-A Visit Information Start: 08/26/21 17:47 Freq: Status: Active Protocol: Document 05/06/22 08:17 LRN (Rec: 05/06/22 09:03 LRN [id number]) Out-Patient Physical Therapy Visit Information Visit Information Visit Type Treatment Note Visit Start Time 08:15 Visit Stop Time 08:47 Total Visit Minutes 32 Visit Number 27 Evaluation Information Evaluation Date 08/27/21 Precautions Precautions Diabetes type II, fall backward tripping over a bag 10/10/22 resulting in R anterior hip pain, recent fall through landing 04/15/22 increasing R LBP. PT-OP-B Current Condition Start: 08/26/21 17:47 Freq: Status: Active Protocol: Document 08/27/21 11:30 LRN (Rec: 08/27/21 12:29 LRN [id number]) Current Condition History of Current Condition Onset Date 05/26/21 Current Complaints Urinary leakage with sneeze or cough and general joint achiness. History of Current Condition Pt is 12 weeks s/p childbirth. Onset of urinary leakage since of son with 58 hour labor suffering a 2nd degree tear. Pt is having moderage urinary leakage, and random drops of leakage. If thinks she has to go, she is not able to wait to void. She leaks with sneezing or coughing. Struggles to move quickly due to excessive mobilty of joints causing soreness of joints everything aches. Pt is currently . 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 Her vaginal incisions [facility] was told have healed. 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 Prior Treatments and Tests Manufacturing Electrician Nina said bladder had descended. Developmental History Developmental History Gestational: Diabetes, HTN, and reflux at week 16. Her HTN and reflux has normalized, but she still has type II diabetes. During preganancy: 2 placenta abruptions, Vaginal with vacuum.. 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 Current Functional Impairments (Reported) Functional Limitations- ADL's Urinary leakage with laughing, sneezing, coughing, General joint pains with movement. Functional Limitations- Mobility/Gait Goes sideways down stairs because of weakness and doesn' t feel safe. 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 Hypermobile joints; therefore sitting still for > 5 minutes she has fear of joints moving too much increasing her risk of falling. Couple of times concerned of falling because body isn't moving. PT-OP-C Subjective Start: 08/26/21 17:47 Freq: Status: Active Protocol: Document 05/06/22 08:17 LRN (Rec: 05/06/22 09:03 LRN [id number]) OP-PT Subjective Patient Comments Patient Comments States she was really sore after last session, was 7/10, now 3/10 as long as I make sensible choices. States her baby is sick and she is on her 2nd cold. PT-OP-I Pelvic Floor Start: 08/26/21 17:47 Freq: Status: Active Protocol: Document 05/06/22 08:17 LRN (Rec: 05/06/22 09:03 LRN [id number]) Pelvic Floor Assessment Urine Pelvic Floor Surgery Yes: Grade 2 tear repaired Other Urinary Symptoms 85% control of urinary leakage . Leakage Cause Urge Other Leakage Causes Full bladder Leaks Per Day None Voiding Frequency 3-4 hrs Nocturia 1 Pads Used In 24 Hours 0 Pelvic Clock Pelvic Clock 6-9 Tenderness Pelvic Clock Other Tender at 7 O'Clock Contraction Ability Manual Muscle Testing Left 3 Manual Muscle Testing Right 3 Manual Muscle Testing Anterior 3 Manual Muscle Testing Posterior 3 Muscle Endurance (Seconds) 10 Number of Quick Contractions In 10 8 Seconds Comments Pelvic Floor Comments Pt Holds PF contraction but wanes after 8 secs. PT-OP-J Posture/Palpation/Skin Start: 08/26/21 17:47 Freq: Status: Active Protocol: Document 04/24/22 14:38 LRN (Rec: 04/24/22 16:49 LRN [id number]) Palpation Assessment Location Low back Palpation Location Ankles. Palpation Details Standing: R iliac crest high, R PSIS high. Supine - R leg is long. Long Sit- R leg long. PSLR is 90 deg's bilaterally. Post Treatment: Level Iliac Crests and equal leg lengths in supine. PT-OP-K Range of Motion Start: 08/26/21 17:47 Freq: Status: Active Protocol: Document 08/27/21 11:30 LRN (Rec: 08/27/21 12:29 LRN [id number]) Lumbar Spine Range of Motion Lumbar Spine Active Degrees Testing Position Standing Flexion 75 Extension 25 Rotation Left 20 Rotation Right 30 Lateral Flexion Left 15 Lateral Flexion Right 17 ROM Limitations Soft Tissue Tightness,Muscle Weakness,Pain Comments Trunk flexion is with 45 deg's hip flexion Trunk extension is with 10 deg 's hip extension Hip Goniometric Range of Motion Hip Right Passive Testing Position Supine Abduction 30 Internal Rotation 15 External Rotation 75 Left Passive Testing Position Supine Abduction 45 Internal Rotation 20 External Rotation 70 PT-OP-M Strength Start: 08/26/21 17:47 Freq: Status: Active Protocol: Document 12/17/21 13:50 LRN (Rec: 12/17/21 16:53 LRN [id number]) Trunk Strength Trunk Manual Muscle Testing Rotation Left 2 Poor Rotation Right 2 Poor Core Stabilization Pt not able to perform a TA contraction in lower abdomen ( umbilicus and below). PT-OP-Q Treatments Start: 08/26/21 17:47 Freq: Status: Active Protocol: Document 05/06/22 08:17 LRN (Rec: 05/06/22 09:03 LRN [id number]) Therapeutic Exercises Supine Exercises PF Quick Flicks Supine Exercise Name PF Quick Flicks - Around the PF clock Equipment Used T-Band to help hold knees in BKFO position PF Long Holds Supine Exercise Name PF Long Hold Equipment Used T-Band to help hold knees in BKFO position Manual Therapy Treatment Soft Tissue Mobilization PF Body Location PF Clock @ 7>8 superfical and deep, externally 6, Mobilization Type Sustained Pressure Intensity/Depth Superficial Body Position Hooklying Self-Care/Home Management Treatment Education Other Education Pt education and discussion as needed for: General vulvar care & Genital Hygiene for Women. Handouts issued. Activities Self-Care/Home Management Activities Reviewed use of wand for PF stretching at location of pain . PT-OP-R Modalities Start: 08/26/21 17:47 Freq: Status: Active Protocol: Document 02/24/22 08:18 LRN (Rec: 02/24/22 09:41 LRN [id number]) Ultrasound Therapy Treatment Lumbar paraspinals Treatment Duration (minutes) 8 Patient Position Prone Coupling Medium Ultrasound Gel Applicator Size (cm2) 10 Mode Setting Pulsed Duty Cycle 50% Intensity Setting (w/cm2) 1.5 PT-OP-S Aquatic Treatment Start: 03/02/22 19:22 Freq: Status: Active Protocol: Document 04/09/22 14:51 LJ (Rec: 04/09/22 15:03 LJ [id number]) Aquatics Treatment Pool Entry/Exit Pool Entry/Exit Method Stairs Assistance Independent Water Walking Marching Water Level Chest Level Walking Equipment Ankle Floats and paddles Level of Assistance Standby Assistance,Verbal Cues Comments cues for neutral postural alignment and core stabilization, arms for drag Sideways Water Level Chest Level Walking Equipment ankle floats and paddles Level of Assistance Standby Assistance,Verbal Cues Comments cues for neutral postural alignment and core stabilization, arms for drag Backwards Water Level Chest Level Level of Assistance Standby Assistance,Verbal Cues Comments cues for neutral postural alignment and core stabilization, arms for drag Forwards Water Level Chest Level Level of Assistance Standby Assistance,Verbal Cues Comments cues for neutral postural alignment and core stabilization, arms for drag Lower Extremity Exercises 4 way hip Body Position Standing Water Level Waist Level Reps/Duration 10 B each exercise Comments gentle mvmt within painfree ROM Lower Extremity Stretches piriformis Details ankle across knee; push down, pull toward opp shoulder. Equipment back against wall Reps/Duration 2x30 quad, hip flex Equipment Small Noodle Reps/Duration 2x30 IT band, groin Equipment Small Noodle Reps/Duration 2x30 HS stretch Equipment Small Noodle Reps/Duration 2x30 Upper Extremity Exercises shoulder flex/ext Body Position Standing Water Level Chest Level Equipment UE paddles Reps/Duration 10x symmetrical, 10x opp directions Comments cues for core engagement hor ab/ad Body Position Standing Water Level Chest Level Equipment UE paddles Reps/Duration 10x mariama, 10x unil Comments cues for core engagement pull down Equipment 2 medium barbells Reps/Duration 20x Comments cues for core engagement, neutral postural alignment Spinal Exercises wall squat DLS Details with shld hor ab/ad, flex/ext, marching Body Position Sitting Water Level Neck Level Reps/Duration 10x mariama, 10x unil Comments holding 2# weight against wall [place] Activities [place] Activities Bicycle,Bicycle Backwards, Cross Country,Sit Kicks Other Activities Deep water DLS, medium barballs: progressed UE pull downs in 90/90 position Equipment medium barbells PT-OP-T Assessment and Plan Start: 08/26/21 17:47 Freq: Status: Active Protocol: Document 05/06/22 08:17 LRN (Rec: 05/06/22 09:03 LRN [id number]) Physical Therapy Assessment Goals Six Impairment R hip pain rated 4-9/10 Impairment At rest pain is 4/10, with activity pain is 7-9/10. LEFS is 16 (80-99% impaired) Short Term Goal (STG) Decrease R hip pain to no more than 4/10 with activity. (12/30/21: R anterior groin pain is 0/10 at rest). (02/24/22: Pain 6/10 due to recent injury of back) (05/06/22: Pain 0/10 with normal daily activity unless leg extends beyond normal) STG Duration 01/31/22 (05/06/22: MET GOAL ) Care Home Goal (LTG) Decrease R hip pain to 0-1/10 at rest with modification to her sitting as needed, and with activity. 03/26/22: good goal progress (05/06/22: Pain 0/10 with normal daily activity unless leg extends beyond normal) LTG Duration 05/25/22 (05/06/22: MET GOAL) Five Impairment Urge incontinence in the presences of a strong urge. Short Term Goal (STG) Pt will be educated in Urge deference technique STG Duration 09/06/21 (09/13/21: MET GOAL) Special Deputy Sheriff Goal (LTG) Pt will be able to remain continent in the presence of a strong urge. (12/17/21: 85% of the time able to maintain continence) (02/24/22: 75% of time able to maintain continecne) (05/06/22: 90% control) LTG Duration 05/25/22 (05/06/22: Progressing) Four Impairment Pain with palp at 3, 6, 9 of PF Clock Short Term Goal (STG) Pt will be educated in PF stretches. (12/17/21: Not able to do due to hip pain since fall ) (02/24/22: Not able to ex for past week due to recent LBP onset). (05/06/22: Reviewed self stretch with wand at PF clock 7). STG Duration 01/31/22 (05/06/22: Progressed) Care Home Goal (LTG) No pelvic pain with palpation. (05/06/22: Pain at PF clock 7) LTG Duration 05/25/22 (05/06/22: Progressing) Three Impairment Pt has difficulty sustaining a Long Hold PF contraction for 10 secs Impairment (Initial: Long Hold 7 secs) Short Term Goal (STG) Pt will be able to perform a PF contraction in the absence of abdominal/gluteal muscles and hold for 5 secs. (09/23/21: Pt able to recognize doing a PF contraction in abscence of substitute muscles). STG Duration 01/31/22 (05/06/22: MET GOAL ) Care Home Goal (LTG) Pt will improve PF endurance of holding 10 secs prior to fatigue and to improve strength to 3/5, with pt able to lift objects without onset of urinary leakage. LTG Duration 05/25/22 (05/06/22: MET GOAL) Two Impairment Urinary incontinence with a strong cough, sneeze or with laughing. Impairment Initial Quick Flick 0-1 rep Short Term Goal (STG) Improve PF Quick Flick strength with pt able to perform Quick contractions of 5 reps prior to fatigue. STG Duration 01/31/22 (05/06/22: MET GOAL ) Special Deputy Sheriff Goal (LTG) Improve PF strength, of Quick Flicks to 3/5 strength, and ability to perform 10 quick flicks prior to fatigue. Pt will be able to maintain continence in the presence of a strong cough, sneeze and with sudden laughing. (05/06/22: Strength is 3/5, able to perform 8 quick contractions before fatigue). LTG Duration 05/25/22 (05/06/22: Progressing, MET for strength, not endurance) One Impairment Pt lacks appropriate self care HEP Short Term Goal (STG) Pt will be independent with a HEP of hip stretches and PF/TA /hip strengthening. (09/23/21: HEP: Verbal I/S : Sit to stands for Quick Flicks and for Long Holds - holding sit<>stand and doing hip ER/IR x 4 between bouts of sit<> stand. HEP: Fig 4 and Piriformis stretch). (12/30/21: Added TA strengthening 4 pt & I/S in sidelie & sup, I/S sitting LE roll in/out). (02/17/22: HEP: HAHA & cough training) STG Duration 01/31/22 (09/23/21: met for hip stretches) Care Home Goal (LTG) Pt will be independent in a self care HEP for PF strengthening. (05/06/22: PF HEP to date: Quick and Long Hold Kegel ex; PF/LE roll in/outs; PF w/ transfers; PF with hip ex's) LTG Duration 05/25/22 (05/06/22: Progressed ) Assessment Summary Assessment Pt appears to understand how to use wand to stretch her PF, but pt has not brought it back in for further physical training. Her Quick contraction strength fatigues after 8 reps, but she is able to hold a long contractions with waning of strength over time; therefore the pt has difficulty holding urinary continence when her bladder is full and she has a strong urge. Her R hip is much improved with return to swimming and increased stabilization of the core in the water. Pt still has R hip pain if moving her leg too far in AB & Extension; therefore further medical assessment may be needed. Physical Therapy Plan Frequency and Duration Frequency of Treatment 2x/Week Plan of Care Start Date 02/24/22 Plan of Care End Date 05/25/22 Next Visit Focus/Plan Next Note Type Treatment Note Next Visit Plan Aquatic: Pt to complete program with self care aquatic program issued at next aquatic visit. Aquatic: Continue progression of therapeutic aquatic exercises with emphasis on neutral postural alignment and core stabilization. Manual therapy techniques as indicated. Clinic: Check proper breathing . Check trunk strength. Assess PF strength if pt able to tolerate prolonged positioning supine for assessment, and progress to goal. Refer for hip assessment if pain persists. Add TA rot strengthening/PF of Hands/Knees push ex. Assess performance of proper Kegel without use of substitute muscles and in strengthening of aggrevators. Stabilize core (internal rotator strengthening) and progress PF strengthening, Pt education: proper vulvar/ genital care, discuss foods, and water intake, proper squatting and lifting, sit to stand, and moving in bed using proper breathwork, Ther Ex & HEP: Progress PF/ core/hip strengthening, improve hip mobility. Manual therapy: PF pain areas , STM of abdomen (and urachus) , improve bladder mobility.
--- NOTE | 2022-05-30 16:40 | PT.OTN ---
Current Diagnoses Pain in right hip (05/30/22) Postural lordosis, lumbar region (05/30/22) Muscle weakness (generalized) (05/30/22) Mixed incontinence (05/30/22) Urethrocele (05/30/22) Physical Therapy Treatment Note PT-OP-A Visit Information Start: 08/26/21 17:47 Freq: Status: Active Protocol: Document 05/30/22 15:21 LRN (Rec: 05/30/22 16:36 LRN [id number]) Out-Patient Physical Therapy Visit Information Visit Information Visit Type Progress Note Visit Note . PT only Visit Start Time 15:21 Visit Stop Time 16:01 Total Visit Minutes 40 Visit Number 28 Evaluation Information Evaluation Date 08/27/21 Precautions Precautions Diabetes type II, fall backward tripping over a bag 10/10/22 resulting in R anterior hip pain, recent fall through landing 04/15/22 increasing R LBP. PT-OP-B Current Condition Start: 08/26/21 17:47 Freq: Status: Active Protocol: Document 08/27/21 11:30 LRN (Rec: 08/27/21 12:29 LRN [id number]) Current Condition History of Current Condition Onset Date 05/26/21 Current Complaints Urinary leakage with sneeze or cough and general joint achiness. History of Current Condition Pt is 12 weeks s/p childbirth. Onset of urinary leakage since of son with 58 hour labor suffering a 2nd degree tear. Pt is having moderage urinary leakage, and random drops of leakage. If thinks she has to go, she is not able to wait to void. She leaks with sneezing or coughing. Struggles to move quickly due to excessive mobilty of joints causing soreness of joints everything aches. Pt is currently . 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 Her vaginal incisions [facility] was told have healed. 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 Prior Treatments and Tests Phlebotomy Technician Nina said bladder had descended. Developmental History Developmental History Gestational: Diabetes, HTN, and reflux at week 16. Her HTN and reflux has normalized, but she still has type II diabetes. During preganancy: 2 placenta abruptions, Vaginal with vacuum.. 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 Current Functional Impairments (Reported) Functional Limitations- ADL's Urinary leakage with laughing, sneezing, coughing, General joint pains with movement. Functional Limitations- Mobility/Gait Goes sideways down stairs because of weakness and doesn' t feel safe. 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 Hypermobile joints; therefore sitting still for > 5 minutes she has fear of joints moving too much increasing her risk of falling. Couple of times concerned of falling because body isn't moving. PT-OP-C Subjective Start: 08/26/21 17:47 Freq: Status: Active Protocol: Document 05/30/22 15:21 LRN (Rec: 05/30/22 16:36 LRN [id number]) OP-PT Subjective Patient Comments Patient Comments States she is feeling improved and has been drinking more water because of the heat. More conscious of urinating when urge is not present. States first in the morning is when she might leak because of having to wait for the spouse to get out of the bathroom. Overall stiff all over. Still . Still has R anterior hip pain. PT-OP-I Pelvic Floor Start: 08/26/21 17:47 Freq: Status: Active Protocol: Document 05/06/22 08:17 LRN (Rec: 05/06/22 09:03 LRN [id number]) Pelvic Floor Assessment Urine Pelvic Floor Surgery Yes: Grade 2 tear repaired Other Urinary Symptoms 85% control of urinary leakage . Leakage Cause Urge Other Leakage Causes Full bladder Leaks Per Day None Voiding Frequency 3-4 hrs Nocturia 1 Pads Used In 24 Hours 0 Pelvic Clock Pelvic Clock 6-9 Tenderness Pelvic Clock Other Tender at 7 O'Clock Contraction Ability Manual Muscle Testing Left 3 Manual Muscle Testing Right 3 Manual Muscle Testing Anterior 3 Manual Muscle Testing Posterior 3 Muscle Endurance (Seconds) 10 Number of Quick Contractions In 10 8 Seconds Comments Pelvic Floor Comments Pt Holds PF contraction but wanes after 8 secs. PT-OP-J Posture/Palpation/Skin Start: 08/26/21 17:47 Freq: Status: Active Protocol: Document 04/24/22 14:38 LRN (Rec: 04/24/22 16:49 LRN [id number]) Palpation Assessment Location Low back Palpation Location Ankles. Palpation Details Standing: R iliac crest high, R PSIS high. Supine - R leg is long. Long Sit- R leg long. PSLR is 90 deg's bilaterally. Post Treatment: Level Iliac Crests and equal leg lengths in supine. PT-OP-K Range of Motion Start: 08/26/21 17:47 Freq: Status: Active Protocol: Document 08/27/21 11:30 LRN (Rec: 08/27/21 12:29 LRN [id number]) Lumbar Spine Range of Motion Lumbar Spine Active Degrees Testing Position Standing Flexion 75 Extension 25 Rotation Left 20 Rotation Right 30 Lateral Flexion Left 15 Lateral Flexion Right 17 ROM Limitations Soft Tissue Tightness,Muscle Weakness,Pain Comments Trunk flexion is with 45 deg's hip flexion Trunk extension is with 10 deg 's hip extension Hip Goniometric Range of Motion Hip Right Passive Testing Position Supine Abduction 30 Internal Rotation 15 External Rotation 75 Left Passive Testing Position Supine Abduction 45 Internal Rotation 20 External Rotation 70 PT-OP-M Strength Start: 08/26/21 17:47 Freq: Status: Active Protocol: Document 12/17/21 13:50 LRN (Rec: 12/17/21 16:53 LRN [id number]) Trunk Strength Trunk Manual Muscle Testing Rotation Left 2 Poor Rotation Right 2 Poor Core Stabilization Pt not able to perform a TA contraction in lower abdomen ( umbilicus and below). PT-OP-Q Treatments Start: 08/26/21 17:47 Freq: Status: Active Protocol: Document 05/30/22 15:21 LRN (Rec: 05/30/22 16:36 LRN [id number]) Therapeutic Exercises Supine Exercises Happy Baby Pose Supine Exercise Name Happy Baby Pose Reps/Minutes 60 H x 2 Hands/Knees Push Supine Exercise Name TA: Hands/knees push Equipment Used Bolster for feet support Reps/Minutes 6' Comments Cuing for abdomen not to bulge . Trunk rot Supine Exercise Name Knees 90/90, hands press into opposite thigh Side bilateral Reps/Minutes 10x each Comments Cuing for abdomen not to bulge . TA tightening Supine Exercise Name TA Tightening Reps/Minutes 5-10 H x 10 Comments Cuing for abdomen not to bulge . PF Quick Flicks Supine Exercise Name PF Quick Flicks w/ hip AB Equipment Used L2 T-Band for hip ER w/Quick Flicks PF Long Holds Supine Exercise Name PF Long Hold w/hip AB Equipment Used L2 T-Band for hip ER w/Long Holds Self-Care/Home Management Treatment Education Patient Education Home Exercise Program Other Education Reviewed & educated pt in use of med wand for PF stretching at 7 O'Clock. Listened and discussed with pt challenges of having baby, visitors, mental health therapy and working. Reassured pt her feelings were appropriate and reassured mental health therapy is important. Activities Self-Care/Home Management Activities Issued Med Wand for use with stretching of the PF. PT-OP-R Modalities Start: 08/26/21 17:47 Freq: Status: Active Protocol: Document 02/24/22 08:18 LRN (Rec: 02/24/22 09:41 LRN [id number]) Ultrasound Therapy Treatment Lumbar paraspinals Treatment Duration (minutes) 8 Patient Position Prone Coupling Medium Ultrasound Gel Applicator Size (cm2) 10 Mode Setting Pulsed Duty Cycle 50% Intensity Setting (w/cm2) 1.5 PT-OP-S Aquatic Treatment Start: 03/02/22 19:22 Freq: Status: Active Protocol: Document 04/09/22 14:51 LJ (Rec: 04/09/22 15:03 LJ [id number]) Aquatics Treatment Pool Entry/Exit Pool Entry/Exit Method Stairs Assistance Independent Water Walking Marching Water Level Chest Level Walking Equipment Ankle Floats and paddles Level of Assistance Standby Assistance,Verbal Cues Comments cues for neutral postural alignment and core stabilization, arms for drag Sideways Water Level Chest Level Walking Equipment ankle floats and paddles Level of Assistance Standby Assistance,Verbal Cues Comments cues for neutral postural alignment and core stabilization, arms for drag Backwards Water Level Chest Level Level of Assistance Standby Assistance,Verbal Cues Comments cues for neutral postural alignment and core stabilization, arms for drag Forwards Water Level Chest Level Level of Assistance Standby Assistance,Verbal Cues Comments cues for neutral postural alignment and core stabilization, arms for drag Lower Extremity Exercises 4 way hip Body Position Standing Water Level Waist Level Reps/Duration 10 B each exercise Comments gentle mvmt within painfree ROM Lower Extremity Stretches piriformis Details ankle across knee; push down, pull toward opp shoulder. Equipment back against wall Reps/Duration 2x30 quad, hip flex Equipment Small Noodle Reps/Duration 2x30 IT band, groin Equipment Small Noodle Reps/Duration 2x30 HS stretch Equipment Small Noodle Reps/Duration 2x30 Upper Extremity Exercises shoulder flex/ext Body Position Standing Water Level Chest Level Equipment UE paddles Reps/Duration 10x symmetrical, 10x opp directions Comments cues for core engagement hor ab/ad Body Position Standing Water Level Chest Level Equipment UE paddles Reps/Duration 10x mariama, 10x unil Comments cues for core engagement pull down Equipment 2 medium barbells Reps/Duration 20x Comments cues for core engagement, neutral postural alignment Spinal Exercises wall squat DLS Details with shld hor ab/ad, flex/ext, marching Body Position Sitting Water Level Neck Level Reps/Duration 10x mariama, 10x unil Comments holding 2# weight against wall Stark Activities Stark Activities Bicycle,Bicycle Backwards, Cross Country,Sit Kicks Other Activities Deep water DLS, medium barballs: progressed UE pull downs in 90/90 position Equipment medium barbells PT-OP-T Assessment and Plan Start: 08/26/21 17:47 Freq: Status: Active Protocol: Document 05/30/22 15:21 LRN (Rec: 05/30/22 16:36 LRN [id number]) Physical Therapy Assessment Rehab Potential Rehabilitation Potential Good Evaluation Complexity Number of Personal Factors/Comorbidities 1-2 Number of Body Systems Impaired 4 or More Clinical Presentation at Evaluation Evolving Impairments Impairments Activity Tolerance,Functional Mobility,Pain,Posture,ROM,Soft Tissue Mobility,Strength, Transfers Goals Six Impairment R hip pain rated 4-9/10 Impairment At rest pain is 4/10, with activity pain is 7-9/10. LEFS is 16 (80-99% impaired) Short Term Goal (STG) Decrease R hip pain to no more than 4/10 with activity. (12/30/21: R anterior groin pain is 0/10 at rest). (02/24/22: Pain 6/10 due to recent injury of back) (05/06/22: Pain 0/10 with normal daily activity unless leg extends beyond normal) STG Duration 01/31/22 (05/06/22: MET GOAL ) Skilled Nursing Goal (LTG) Decrease R hip pain to 0-1/10 at rest with modification to her sitting as needed, and with activity. 03/26/22: good goal progress (05/06/22: Pain 0/10 with normal daily activity unless leg extends beyond normal) LTG Duration 05/25/22 (05/06/22: MET GOAL) Five Impairment Urge incontinence in the presences of a strong urge. Short Term Goal (STG) Pt will be educated in Urge deference technique STG Duration 09/06/21 (09/13/21: MET GOAL) Pharmacist Intern Goal (LTG) Pt will be able to remain continent in the presence of a strong urge. (12/17/21: 85% of the time able to maintain continence) (02/24/22: 75% of time able to maintain continence) (05/06/22: 90% control) (05/30/22: 90% control) LTG Duration 05/25/22 (05/30/22: No change since 05/30/22) Four Impairment Pain with palp at 3, 6, 9 of PF Clock Short Term Goal (STG) Pt will be educated in PF stretches. (12/17/21: Not able to do due to hip pain since fall ) (02/24/22: Not able to ex for past week due to recent LBP onset). (05/06/22: Reviewed self stretch with wand at PF clock 7). (: Reviewed Happy Baby Pose & PF stretch with wand with Med wand issued). STG Duration 01/31/22 (05/30/22: MET GOAL) Skilled Nursing Goal (LTG) No pelvic pain with palpation. (05/06/22: Pain at PF clock 7) LTG Duration 08/28/22 (05/06/22: Progressing) Two Impairment Urinary incontinence with a strong cough, sneeze or with laughing. Impairment Initial Quick Flick 0-1 rep Short Term Goal (STG) Improve PF Quick Flick strength with pt able to perform Quick contractions of 5 reps prior to fatigue. STG Duration 01/31/22 (05/06/22: MET GOAL ) Skilled Nursing Goal (LTG) Improve PF strength, of Quick Flicks to 3/5 strength, and ability to perform 10 quick flicks prior to fatigue. Pt will be able to maintain continence in the presence of a strong cough, sneeze and with sudden laughing. (05/06/22: Strength is 3/5, able to perform 8 quick contractions before fatigue). LTG Duration 08/28/22 (05/06/22: Progressing, MET for strength, not endurance) One Impairment Pt lacks appropriate self care HEP Short Term Goal (STG) Pt will be independent with a HEP of hip stretches and PF/TA /hip strengthening. (09/23/21: HEP: Verbal I/S : Sit to stands for Quick Flicks and for Long Holds - holding sit<>stand and doing hip ER/IR x 4 between bouts of sit<> stand. HEP: Fig 4 and Piriformis stretch). (12/30/21: Added TA strengthening 4 pt & I/S in sidelie & sup, I/S sitting LE roll in/out). (02/17/22: HEP: HAHA & cough training) STG Duration 06/20/22 (05/30/22: met for hip stretches, hip/TA strengthening) Skilled Nursing Goal (LTG) Pt will be independent in a self care HEP for PF strengthening. (05/06/22: PF HEP to date: Quick and Long Hold Kegel ex; PF/LE roll in/outs; PF w/ transfers; PF with hip ex's) LTG Duration 08/28/22 (05/06/22: Progressed) Progress Towards Goals Progress Comments Progressed HEP Assessment Summary Assessment The pt returns after 1-1/2 months with decrease in LBP and improved urinary continence, but continued R hip pain. Pt reports having an independent aquatic ex program, but because pool is closed for 2 weeks she has not been able to exercise. Pt has not been able to try PF stretching due to she couldn't reach [facility] area of tightness, and had she had guests visiting, making finding a safe quiet place difficult. Pt LB is overall feeling better, making it possible to progress her HEP. Her R hip continues to be painful with movement unless moving slowly. It was recommended to pt that she seek further medical assessment for her R anterior hip pain, but her primary care physician is no longer available (quit). Pt appears overwhelmed and emotionally somewhat distressed. Pt needed reassurance that stress at this time with young child was expected. Pt indicates she has a mental health therapist she is seeing. The pt will benefit from continued skilled physical therapy to now progress her PF and core strength, and to decrease her R hip pain if associated with her PF. Physical Therapy Plan Frequency and Duration Frequency of Treatment 2x/Week Plan of Care Start Date 05/30/22 Plan of Care End Date 08/28/22 Therapeutic Interventions Therapeutic Interventions Home Exercise Program,Joint Mobilizations,Manual Therapy, Neuromuscular Re-education, Patient/Caregiver Education, Self-Care/Home Management,Soft Tissue Mobilization, Therapeutic Activities, Therapeutic Exercises Modalities Biofeedback,Cold Pack/Ice Massage,Electric Stimulation, Hot Packs,Ultrasound Other Referrals/Consults Referrals/Consults Recommended Recommend further medical assessment for her R anterior hip pain. Next Visit Focus/Plan Next Note Type Treatment Note Next Visit Plan Clinic: Next: try manual internal & external PF stretch for possible anterior hip pain referred from [employer] Internus (L2-4) or in L/ S for Ilioinguinal (L1) or Genitfemoral nerve (L1-2). Check proper breathing. Check trunk strength. Assess PF strength if pt able to tolerate prolonged positioning supine for assessment, and progress to goal. Refer for hip assessment if pain persists. Review TA rot strengthening/PF of Hands/Knees push ex. Assess performance of proper Kegel without use of substitute muscles and in strengthening of aggrevators. Stabilize core (internal rotator strengthening) and progress PF strengthening, Pt education: proper vulvar/ genital care, discuss foods, and water intake, proper squatting and lifting, sit to stand, and moving in bed using proper breathwork, Ther Ex & HEP: Progress PF/ core/hip strengthening, improve hip mobility. Manual therapy: PF pain areas , STM of abdomen (and urachus) , improve bladder mobility.
--- NOTE | 2022-06-02 16:55 | PT.OTN ---
Current Diagnoses Pain in right hip (06/02/22) Postural lordosis, lumbar region (06/02/22) Muscle weakness (generalized) (06/02/22) Mixed incontinence (06/02/22) Urethrocele (06/02/22) Physical Therapy Treatment Note PT-OP-A Visit Information Start: 08/26/21 17:47 Freq: Status: Active Protocol: Document 06/02/22 15:35 LRN (Rec: 06/02/22 16:55 LRN [id number]) Out-Patient Physical Therapy Visit Information Visit Information Visit Type Treatment Note Visit Note . PT only Visit Start Time 15:35 Visit Stop Time 16:29 Total Visit Minutes 49 Visit Number 29 Evaluation Information Evaluation Date 08/27/21 Precautions Precautions Diabetes type II, fall backward tripping over a bag 10/10/22 resulting in R anterior hip pain, recent fall through landing 04/15/22 increasing R LBP. PT-OP-B Current Condition Start: 08/26/21 17:47 Freq: Status: Active Protocol: Document 08/27/21 11:30 LRN (Rec: 08/27/21 12:29 LRN [id number]) Current Condition History of Current Condition Onset Date 05/26/21 Current Complaints Urinary leakage with sneeze or cough and general joint achiness. History of Current Condition Pt is 12 weeks s/p childbirth. Onset of urinary leakage since of son with 58 hour labor suffering a 2nd degree tear. Pt is having moderage urinary leakage, and random drops of leakage. If thinks she has to go, she is not able to wait to void. She leaks with sneezing or coughing. Struggles to move quickly due to excessive mobilty of joints causing soreness of joints everything aches. Pt is currently . At 6 wks physician follow-up with her direct entry midwife, she was found to have her bladder had descended. Her vaginal incisions [facility] was told have healed. 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 Prior Treatments and Tests Tie Presser Nina said bladder had descended. Developmental History Developmental History Gestational: Diabetes, HTN, and reflux at week 16. Her HTN and reflux has normalized, but she still has type II diabetes. During preganancy: 2 placenta abruptions, Vaginal with vacuum.. 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 Current Functional Impairments (Reported) Functional Limitations- ADL's Urinary leakage with laughing, sneezing, coughing, General joint pains with movement. Functional Limitations- Mobility/Gait Goes sideways down stairs because of weakness and doesn' t feel safe. 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 Hypermobile joints; therefore sitting still for > 5 minutes she has fear of joints moving too much increasing her risk of falling. Couple of times concerned of falling because body isn't moving. PT-OP-C Subjective Start: 08/26/21 17:47 Freq: Status: Active Protocol: Document 06/02/22 15:35 LRN (Rec: 06/02/22 16:55 LRN [id number]) OP-PT Subjective Patient Comments Patient Comments Stiff since last visit. PT-OP-I Pelvic Floor Start: 08/26/21 17:47 Freq: Status: Active Protocol: Document 05/06/22 08:17 LRN (Rec: 05/06/22 09:03 LRN [id number]) Pelvic Floor Assessment Urine Pelvic Floor Surgery Yes: Grade 2 tear repaired Other Urinary Symptoms 85% control of urinary leakage . Leakage Cause Urge Other Leakage Causes Full bladder Leaks Per Day None Voiding Frequency 3-4 hrs Nocturia 1 Pads Used In 24 Hours 0 Pelvic Clock Pelvic Clock 6-9 Tenderness Pelvic Clock Other Tender at 7 O'Clock Contraction Ability Manual Muscle Testing Left 3 Manual Muscle Testing Right 3 Manual Muscle Testing Anterior 3 Manual Muscle Testing Posterior 3 Muscle Endurance (Seconds) 10 Number of Quick Contractions In 10 8 Seconds Comments Pelvic Floor Comments Pt Holds PF contraction but wanes after 8 secs. PT-OP-J Posture/Palpation/Skin Start: 08/26/21 17:47 Freq: Status: Active Protocol: Document 04/24/22 14:38 LRN (Rec: 04/24/22 16:49 LRN [id number]) Palpation Assessment Location Low back Palpation Location Ankles. Palpation Details Standing: R iliac crest high, R PSIS high. Supine - R leg is long. Long Sit- R leg long. PSLR is 90 deg's bilaterally. Post Treatment: Level Iliac Crests and equal leg lengths in supine. PT-OP-K Range of Motion Start: 08/26/21 17:47 Freq: Status: Active Protocol: Document 08/27/21 11:30 LRN (Rec: 08/27/21 12:29 LRN [id number]) Lumbar Spine Range of Motion Lumbar Spine Active Degrees Testing Position Standing Flexion 75 Extension 25 Rotation Left 20 Rotation Right 30 Lateral Flexion Left 15 Lateral Flexion Right 17 ROM Limitations Soft Tissue Tightness,Muscle Weakness,Pain Comments Trunk flexion is with 45 deg's hip flexion Trunk extension is with 10 deg 's hip extension Hip Goniometric Range of Motion Hip Right Passive Testing Position Supine Abduction 30 Internal Rotation 15 External Rotation 75 Left Passive Testing Position Supine Abduction 45 Internal Rotation 20 External Rotation 70 PT-OP-M Strength Start: 08/26/21 17:47 Freq: Status: Active Protocol: Document 12/17/21 13:50 LRN (Rec: 12/17/21 16:53 LRN [id number]) Trunk Strength Trunk Manual Muscle Testing Rotation Left 2 Poor Rotation Right 2 Poor Core Stabilization Pt not able to perform a TA contraction in lower abdomen ( umbilicus and below). PT-OP-Q Treatments Start: 08/26/21 17:47 Freq: Status: Active Protocol: Document 06/02/22 15:35 LRN (Rec: 06/02/22 16:55 LRN [id number]) Therapeutic Exercises Supine Exercises KTC for Iliopsoas stretch Supine Exercise Name KTC - R Iliopsoas stretch, then sup for L Ilipsoas stretch Side left Reps/Minutes 3' Hip IR stretch Supine Exercise Name Manual IR stretch Side right Reps/Minutes 4' Hip ER stretch Supine Exercise Name Manual ER stretch w/slow mvmt in/out of stretch Side right Reps/Minutes 5' Comments Extra time on R to move slowly out of stretch position Manual Therapy Treatment Soft Tissue Mobilization Obturator Internus Body Location R OI Internal & External Mobilization Type Myofascial Release,Sustained Pressure Intensity/Depth Moderate Body Position Jm & KTC Comments OI tendon flossing. PF Body Location PF Clock @ 7>8 superfical/deep & see below Mobilization Type Myofascial Release,Sustained Pressure Intensity/Depth Superficial Body Position Hooklying Comments R Iliocyccygeus, coccygeus release, passive and C/R. Posterior PF MFR. PT-OP-R Modalities Start: 08/26/21 17:47 Freq: Status: Active Protocol: Document 02/24/22 08:18 LRN (Rec: 02/24/22 09:41 LRN [id number]) Ultrasound Therapy Treatment Lumbar paraspinals Treatment Duration (minutes) 8 Patient Position Prone Coupling Medium Ultrasound Gel Applicator Size (cm2) 10 Mode Setting Pulsed Duty Cycle 50% Intensity Setting (w/cm2) 1.5 PT-OP-S Aquatic Treatment Start: 03/02/22 19:22 Freq: Status: Active Protocol: Document 04/09/22 14:51 LJ (Rec: 04/09/22 15:03 LJ [id number]) Aquatics Treatment Pool Entry/Exit Pool Entry/Exit Method Stairs Assistance Independent Water Walking Marching Water Level Chest Level Walking Equipment Ankle Floats and paddles Level of Assistance Standby Assistance,Verbal Cues Comments cues for neutral postural alignment and core stabilization, arms for drag Sideways Water Level Chest Level Walking Equipment ankle floats and paddles Level of Assistance Standby Assistance,Verbal Cues Comments cues for neutral postural alignment and core stabilization, arms for drag Backwards Water Level Chest Level Level of Assistance Standby Assistance,Verbal Cues Comments cues for neutral postural alignment and core stabilization, arms for drag Forwards Water Level Chest Level Level of Assistance Standby Assistance,Verbal Cues Comments cues for neutral postural alignment and core stabilization, arms for drag Lower Extremity Exercises 4 way hip Body Position Standing Water Level Waist Level Reps/Duration 10 B each exercise Comments gentle mvmt within painfree ROM Lower Extremity Stretches piriformis Details ankle across knee; push down, pull toward opp shoulder. Equipment back against wall Reps/Duration 2x30 quad, hip flex Equipment Small Noodle Reps/Duration 2x30 IT band, groin Equipment Small Noodle Reps/Duration 2x30 HS stretch Equipment Small Noodle Reps/Duration 2x30 Upper Extremity Exercises shoulder flex/ext Body Position Standing Water Level Chest Level Equipment UE paddles Reps/Duration 10x symmetrical, 10x opp directions Comments cues for core engagement hor ab/ad Body Position Standing Water Level Chest Level Equipment UE paddles Reps/Duration 10x mariama, 10x unil Comments cues for core engagement pull down Equipment 2 medium barbells Reps/Duration 20x Comments cues for core engagement, neutral postural alignment Spinal Exercises wall squat DLS Details with shld hor ab/ad, flex/ext, marching Body Position Sitting Water Level Neck Level Reps/Duration 10x mariama, 10x unil Comments holding 2# weight against wall Goodrich Activities Goodrich Activities Bicycle,Bicycle Backwards, Cross Country,Sit Kicks Other Activities Deep water DLS, medium barballs: progressed UE pull downs in 90/90 position Equipment medium barbells PT-OP-T Assessment and Plan Start: 08/26/21 17:47 Freq: Status: Active Protocol: Document 06/02/22 15:35 LRN (Rec: 06/02/22 16:55 LRN [id number]) Physical Therapy Assessment Goals Six Impairment R hip pain rated 4-9/10 Impairment At rest pain is 4/10, with activity pain is 7-9/10. LEFS is 16 (80-99% impaired) Short Term Goal (STG) Decrease R hip pain to no more than 4/10 with activity. (12/30/21: R anterior groin pain is 0/10 at rest). (02/24/22: Pain 6/10 due to recent injury of back) (05/06/22: Pain 0/10 with normal daily activity unless leg extends beyond normal) STG Duration 01/31/22 (05/06/22: MET GOAL ) Correction Goal (LTG) Decrease R hip pain to 0-1/10 at rest with modification to her sitting as needed, and with activity. 03/26/22: good goal progress (05/06/22: Pain 0/10 with normal daily activity unless leg extends beyond normal) LTG Duration 05/25/22 (05/06/22: MET GOAL) Five Impairment Urge incontinence in the presences of a strong urge. Short Term Goal (STG) Pt will be educated in Urge deference technique STG Duration 09/06/21 (09/13/21: MET GOAL) Manager Regulatory Goal (LTG) Pt will be able to remain continent in the presence of a strong urge. (12/17/21: 85% of the time able to maintain continence) (02/24/22: 75% of time able to maintain continence) (05/06/22: 90% control) (05/30/22: 90% control) LTG Duration 05/25/22 (05/30/22: No change since 05/30/22) Four Impairment Pain with palp at 3, 6, 9 of PF Clock Short Term Goal (STG) Pt will be educated in PF stretches. (12/17/21: Not able to do due to hip pain since fall ) (02/24/22: Not able to ex for past week due to recent LBP onset). (05/06/22: Reviewed self stretch with wand at PF clock 7). (: Reviewed Happy Baby Pose & PF stretch with wand with Med wand issued). STG Duration 01/31/22 (05/30/22: MET GOAL) Correction Goal (LTG) No pelvic pain with palpation. (05/06/22: Pain at PF clock 7) LTG Duration 08/28/22 (05/06/22: Progressing) Two Impairment Urinary incontinence with a strong cough, sneeze or with laughing. Impairment Initial Quick Flick 0-1 rep Short Term Goal (STG) Improve PF Quick Flick strength with pt able to perform Quick contractions of 5 reps prior to fatigue. STG Duration 01/31/22 (05/06/22: MET GOAL ) Correction Goal (LTG) Improve PF strength, of Quick Flicks to 3/5 strength, and ability to perform 10 quick flicks prior to fatigue. Pt will be able to maintain continence in the presence of a strong cough, sneeze and with sudden laughing. (05/06/22: Strength is 3/5, able to perform 8 quick contractions before fatigue). LTG Duration 08/28/22 (05/06/22: Progressing, MET for strength, not endurance) One Impairment Pt lacks appropriate self care HEP Short Term Goal (STG) Pt will be independent with a HEP of hip stretches and PF/TA /hip strengthening. (09/23/21: HEP: Verbal I/S : Sit to stands for Quick Flicks and for Long Holds - holding sit<>stand and doing hip ER/IR x 4 between bouts of sit<> stand. HEP: Fig 4 and Piriformis stretch). (12/30/21: Added TA strengthening 4 pt & I/S in sidelie & sup, I/S sitting LE roll in/out). (02/17/22: HEP: HAHA & cough training) STG Duration 06/20/22 (05/30/22: met for hip stretches, hip/TA strengthening) Manager Regulatory Goal (LTG) Pt will be independent in a self care HEP for PF strengthening. (05/06/22: PF HEP to date: Quick and Long Hold Kegel ex; PF/LE roll in/outs; PF w/ transfers; PF with hip ex's) LTG Duration 08/28/22 (05/06/22: Progressed) Assessment Summary Assessment Pt noted some improved mobility of R hip with ER in putting on her socks/shoes. R hip shows good hip ER mobility but is quite limited with IR mobility. She states she is not able to self stretch her PF with wand, but her spouse has agreed to help. Physical Therapy Plan Frequency and Duration Frequency of Treatment 2x/Week Plan of Care Start Date 05/30/22 Plan of Care End Date 08/28/22 Next Visit Focus/Plan Next Note Type Treatment Note Next Visit Plan Clinic: Next: Manual internal & external PF and Iliopsoas stretch, and L/S JMT, for possible anterior hip pain referred from Obturator Internus (L2-4) or in L/ S for Ilioinguinal (L1) or Genitfemoral nerve (L1-2). Check proper breathing. Check trunk strength. Assess and issue HEP for PF strengthening (STG #1), and progress to goal. Refer for hip assessment if pain persists. Review TA rot strengthening/PF of Hands/Knees push ex. Assess performance of proper Kegel without use of substitute muscles and in strengthening of aggrevators. Stabilize core (internal rotator strengthening) and progress PF strengthening, Pt education: proper vulvar/ genital care, discuss foods, and water intake, proper squatting and lifting, sit to stand, and moving in bed using proper breathwork, Ther Ex & HEP: Progress PF/ core/hip strengthening, improve hip mobility. Manual therapy: PF pain areas , STM of abdomen (and urachus) , improve bladder mobility.
--- NOTE | 2022-06-17 16:48 | PT.OTN ---
Current Diagnoses Pain in right hip (06/17/22) Postural lordosis, lumbar region (06/17/22) Muscle weakness (generalized) (06/17/22) Mixed incontinence (06/17/22) Urethrocele (06/17/22) Physical Therapy Treatment Note PT-OP-A Visit Information Start: 08/26/21 17:47 Freq: Status: Active Protocol: Document 06/17/22 15:20 LRN (Rec: 06/17/22 16:46 LRN [id number]) Out-Patient Physical Therapy Visit Information Visit Information Visit Type Treatment Note Visit Start Time 15:20 Visit Stop Time 16:04 Total Visit Minutes 44 Visit Number 30 Evaluation Information Evaluation Date 08/27/21 Precautions Precautions Diabetes type II, fall backward tripping over a bag 10/10/22 resulting in R anterior hip pain, recent fall through landing 04/15/22 increasing R LBP. PT-OP-B Current Condition Start: 08/26/21 17:47 Freq: Status: Active Protocol: Document 08/27/21 11:30 LRN (Rec: 08/27/21 12:29 LRN [id number]) Current Condition History of Current Condition Onset Date 05/26/21 Current Complaints Urinary leakage with sneeze or cough and general joint achiness. History of Current Condition Pt is 12 weeks s/p childbirth. Onset of urinary leakage since of son with 58 hour labor suffering a 2nd degree tear. Pt is having moderage urinary leakage, and random drops of leakage. If thinks she has to go, she is not able to wait to void. She leaks with sneezing or coughing. Struggles to move quickly due to excessive mobilty of joints causing soreness of joints everything aches. Pt is currently . At 6 wks physician follow-up with her tailor fitter, she was found to have her bladder had descended. Her vaginal incisions [facility] was told have healed. 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 Developmental History Developmental History Gestational: Diabetes, HTN, and reflux at week 16. Her HTN and reflux has normalized, but she still has type II diabetes. During preganancy: 2 placenta abruptions, Vaginal with vacuum.. 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 Current Functional Impairments (Reported) Functional Limitations- ADL's Urinary leakage with laughing, sneezing, coughing, General joint pains with movement. Functional Limitations- Mobility/Gait Goes sideways down stairs because of weakness and doesn' t feel safe. 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 Hypermobile joints; therefore sitting still for > 5 minutes she has fear of joints moving too much increasing her risk of falling. Couple of times concerned of falling because body isn't moving. PT-OP-C Subjective Start: 08/26/21 17:47 Freq: Status: Active Protocol: Document 06/17/22 15:20 LRN (Rec: 06/17/22 16:46 LRN [id number]) OP-PT Subjective Patient Comments Patient Comments States the wierd ache in the hips and knees is back. Now more and she is now having more aches and pains. Sore for 1/2 day after last visit. States a week ago was able to wait for her to get out of bathroom without urinary incontinence. Unhappy with inability to move. Wants to be able to ride bike confidently, play field hockey, ex in gym (bike, TM, row machine). PT-OP-I Pelvic Floor Start: 08/26/21 17:47 Freq: Status: Active Protocol: Document 06/17/22 15:20 LRN (Rec: 06/17/22 16:46 LRN [id number]) Pelvic Floor Assessment Contraction Ability Manual Muscle Testing Left 3 Manual Muscle Testing Right 3 Manual Muscle Testing Anterior 3 Manual Muscle Testing Posterior 2 Muscle Endurance (Seconds) 10 PT-OP-J Posture/Palpation/Skin Start: 08/26/21 17:47 Freq: Status: Active Protocol: Document 04/24/22 14:38 LRN (Rec: 04/24/22 16:49 LRN [id number]) Palpation Assessment Location Low back Palpation Location Ankles. Palpation Details Standing: R iliac crest high, R PSIS high. Supine - R leg is long. Long Sit- R leg long. PSLR is 90 deg's bilaterally. Post Treatment: Level Iliac Crests and equal leg lengths in supine. PT-OP-K Range of Motion Start: 08/26/21 17:47 Freq: Status: Active Protocol: Document 08/27/21 11:30 LRN (Rec: 08/27/21 12:29 LRN [id number]) Lumbar Spine Range of Motion Lumbar Spine Active Degrees Testing Position Standing Flexion 75 Extension 25 Rotation Left 20 Rotation Right 30 Lateral Flexion Left 15 Lateral Flexion Right 17 ROM Limitations Soft Tissue Tightness,Muscle Weakness,Pain Comments Trunk flexion is with 45 deg's hip flexion Trunk extension is with 10 deg 's hip extension Hip Goniometric Range of Motion Hip Right Passive Testing Position Supine Abduction 30 Internal Rotation 15 External Rotation 75 Left Passive Testing Position Supine Abduction 45 Internal Rotation 20 External Rotation 70 PT-OP-M Strength Start: 08/26/21 17:47 Freq: Status: Active Protocol: Document 12/17/21 13:50 LRN (Rec: 12/17/21 16:53 LRN [id number]) Trunk Strength Trunk Manual Muscle Testing Rotation Left 2 Poor Rotation Right 2 Poor Core Stabilization Pt not able to perform a TA contraction in lower abdomen ( umbilicus and below). PT-OP-Q Treatments Start: 08/26/21 17:47 Freq: Status: Active Protocol: Document 06/17/22 15:20 LRN (Rec: 06/17/22 16:46 LRN [id number]) Therapeutic Exercises Supine Exercises KTC for Iliopsoas stretch Supine Exercise Name KTC - R Iliopsoas stretch, then sup for L Ilipsoas stretch Side left Reps/Minutes 3' Happy Baby Pose Supine Exercise Name Happy Baby Pose Reps/Minutes 60 H x 2 Hands/Knees Push Supine Exercise Name TA: Hands/knees push Equipment Used Bolster for feet support Reps/Minutes 6' Comments Cuing for abdomen not to bulge . Trunk rot Supine Exercise Name Knees 90/90, hands press into opposite thigh Side bilateral Reps/Minutes 10x each Comments Cuing for abdomen not to bulge . PF Quick Flicks Supine Exercise Name PF Quick Flicks Reps/Minutes 4' PF Long Holds Supine Exercise Name PF Long Holds Equipment Used 4' Other Exercises T ball Pelvic mob Other Exercise Name Fwd/Bkwd, side to side movement Side bilateral Reps/Minutes 10x each T-Ball bouncing Other Exercise Name Gentle/light Bouncing Side bilateral Reps/Minutes 10x 2 Manual Therapy Treatment Soft Tissue Mobilization L Iliopsoas Body Location L Iliopsoas Mobilization Type Sustained Pressure Intensity/Depth Moderate Body Position Supine R Iliopsoas Body Location R Iliopsoas Mobilization Type Sustained Pressure Intensity/Depth Moderate Body Position Supine Self-Care/Home Management Treatment Education Other Education Discussed at length return to ex (timeframe of when to return, type of ex, length of ex, and effects of on return to exercise.) PT-OP-R Modalities Start: 08/26/21 17:47 Freq: Status: Active Protocol: Document 02/24/22 08:18 LRN (Rec: 02/24/22 09:41 LRN [id number]) Ultrasound Therapy Treatment Lumbar paraspinals Treatment Duration (minutes) 8 Patient Position Prone Coupling Medium Ultrasound Gel Applicator Size (cm2) 10 Mode Setting Pulsed Duty Cycle 50% Intensity Setting (w/cm2) 1.5 PT-OP-S Aquatic Treatment Start: 03/02/22 19:22 Freq: Status: Active Protocol: Document 04/09/22 14:51 LJ (Rec: 04/09/22 15:03 LJ [id number]) Aquatics Treatment Pool Entry/Exit Pool Entry/Exit Method Stairs Assistance Independent Water Walking Marching Water Level Chest Level Walking Equipment Ankle Floats and paddles Level of Assistance Standby Assistance,Verbal Cues Comments cues for neutral postural alignment and core stabilization, arms for drag Sideways Water Level Chest Level Walking Equipment ankle floats and paddles Level of Assistance Standby Assistance,Verbal Cues Comments cues for neutral postural alignment and core stabilization, arms for drag Backwards Water Level Chest Level Level of Assistance Standby Assistance,Verbal Cues Comments cues for neutral postural alignment and core stabilization, arms for drag Forwards Water Level Chest Level Level of Assistance Standby Assistance,Verbal Cues Comments cues for neutral postural alignment and core stabilization, arms for drag Lower Extremity Exercises 4 way hip Body Position Standing Water Level Waist Level Reps/Duration 10 B each exercise Comments gentle mvmt within painfree ROM Lower Extremity Stretches piriformis Details ankle across knee; push down, pull toward opp shoulder. Equipment back against wall Reps/Duration 2x30 quad, hip flex Equipment Small Noodle Reps/Duration 2x30 IT band, groin Equipment Small Noodle Reps/Duration 2x30 HS stretch Equipment Small Noodle Reps/Duration 2x30 Upper Extremity Exercises shoulder flex/ext Body Position Standing Water Level Chest Level Equipment UE paddles Reps/Duration 10x symmetrical, 10x opp directions Comments cues for core engagement hor ab/ad Body Position Standing Water Level Chest Level Equipment UE paddles Reps/Duration 10x mariama, 10x unil Comments cues for core engagement pull down Equipment 2 medium barbells Reps/Duration 20x Comments cues for core engagement, neutral postural alignment Spinal Exercises wall squat DLS Details with shld hor ab/ad, flex/ext, marching Body Position Sitting Water Level Neck Level Reps/Duration 10x mariama, 10x unil Comments holding 2# weight against wall [place] Activities [place] Activities Bicycle,Bicycle Backwards, [place],Sit Kicks Other Activities Deep water DLS, medium barballs: progressed UE pull downs in 90/90 position Equipment medium barbells PT-OP-T Assessment and Plan Start: 08/26/21 17:47 Freq: Status: Active Protocol: Document 06/17/22 15:20 LRN (Rec: 06/17/22 16:46 LRN [id number]) Physical Therapy Assessment Goals Five Impairment Urge incontinence in the presences of a strong urge. Short Term Goal (STG) Pt will be educated in Urge deference technique STG Duration 09/06/21 (09/13/21: MET GOAL) [place] Utility Worker Goal (LTG) Pt will be able to remain continent in the presence of a strong urge. (12/17/21: 85% of the time able to maintain continence) (02/24/22: 75% of time able to maintain continence) (05/06/22: 90% control) (05/30/22: 90% control) LTG Duration 05/25/22 (06/17/22: MET GOAL) Four Impairment Pain with palp at 3, 6, 9 of PF Clock Short Term Goal (STG) Pt will be educated in PF stretches. (12/17/21: Not able to do due to hip pain since fall ) (02/24/22: Not able to ex for past week due to recent LBP onset). (05/06/22: Reviewed self stretch with wand at PF clock 7). (: Reviewed Happy Baby Pose & PF stretch with wand with Med wand issued). STG Duration 01/31/22 (05/30/22: MET GOAL) [place] Utility Worker Goal (LTG) No pelvic pain with palpation. (05/06/22: Pain at PF clock 7) (06/13/22: PF PAIN at 6-5 of PF clock). LTG Duration 08/28/22 (06/17/22: More tender due to pre-menstration) Two Impairment Urinary incontinence with a strong cough, sneeze or with laughing. Impairment Initial Quick Flick 0-1 rep Short Term Goal (STG) Improve PF Quick Flick strength with pt able to perform Quick contractions of 5 reps prior to fatigue. STG Duration 01/31/22 (05/06/22: MET GOAL ) [employer] Utility Worker Goal (LTG) Improve PF strength, of Quick Flicks to 3/5 strength, and ability to perform 10 quick flicks prior to fatigue. Pt will be able to maintain continence in the presence of a strong cough, sneeze and with sudden laughing. (05/06/22: Strength is 3/5, able to perform 8 quick contractions before fatigue).( 06/17/22: Strength is 3/5. Pt able to perform 10 Quick flicks with gluteal assist) LTG Duration 08/28/22 (06/17/22: Progressing, MET for strength, not endurance) One Impairment Pt lacks appropriate self care HEP Short Term Goal (STG) Pt will be independent with a HEP of hip stretches and PF/TA /hip strengthening. (09/23/21: HEP: Verbal I/S : Sit to stands for Quick Flicks and for Long Holds - holding sit<>stand and doing hip ER/IR x 4 between bouts of sit<> stand. HEP: Fig 4 and Piriformis stretch). (12/30/21: Added TA strengthening 4 pt & I/S in sidelie & sup, I/S sitting LE roll in/out). (02/17/22: HEP: HAHA & cough training) (06/17/22: I/S pt in hip strengthening ex's that she does in pool. Pt chooses not to do ex's on land. No further PF strengthening is needed due to PF tightness/ tenderness). STG Duration 06/20/22 (06/17/22: MET GOAL) Long-Term Goal (LTG) Pt will be independent in a self care HEP for PF strengthening. (05/06/22: PF HEP to date: Quick and Long Hold Kegel ex; PF/LE roll in/outs; PF w/ transfers; PF with hip ex's) LTG Duration 08/28/22 (05/06/22: Progressed) Assessment Summary Assessment Return of R hip ache and general joint pain, possibly due to positioning from pt more often to reportedly comfort baby. Pt PF is tender at 5-7 O'Clock of PF, probaby due to premenstrual tenderness. Pt does not need further PF strengthening due to tight/ tender at PF and no c/o urinary incontinence. Pt feels her level of continence is not a problem and she is ready to start her return to exercise. Pt shows good recall of TA rot strengthening /PF of Hands/Knees push ex. with cuing. Pt able to perform a proper Kegel without use of substitute muscles except with Quick Flicks at 6 of the PF O'Clock. Pt would benefit from therapy for return to exercise education and training. Physical Therapy Plan Frequency and Duration Frequency of Treatment 2x/Week Plan of Care Start Date 05/30/22 Plan of Care End Date 08/28/22 Next Visit Focus/Plan Next Note Type Treatment Note Next Visit Plan Assess response to Iliopsoas stretch. Add education for possible DC to a self care progression onto return to exercise program. Add: core (internal rotator) strengthening. Check proper breathing. Check trunk strength. Check for improved hip mobility. Pt education: proper vulvar/ genital care, discuss foods, and water intake, proper squatting and lifting, sit to stand, and moving in bed using proper breathwork, Review as needed Ther Ex & HEP: PF/core/hip strengthening. Refer for hip assessment if pain persists. If needed try to: Manual internal & external PF and L/S JMT, for possible anterior hip pain referred from Obturator Internus (L2-4) or in L/ S for Ilioinguinal (L1) or Genitfemoral nerve (L1-2).
--- NOTE | 2022-08-12 17:06 | PT.OTN ---
Current Diagnoses Pain in right hip (08/12/22) Postural lordosis, lumbar region (08/12/22) Muscle weakness (generalized) (08/12/22) Mixed incontinence (08/12/22) Urethrocele (08/12/22) Physical Therapy Treatment Note PT-OP-A Visit Information Start: 08/26/21 17:47 Freq: Status: Active Protocol: Document 08/12/22 08:16 LRN (Rec: 08/12/22 09:01 LRN [id number]) Out-Patient Physical Therapy Visit Information Visit Information Visit Type Treatment Note Visit Start Time 08:16 Visit Stop Time 08:59 Total Visit Minutes 43 Visit Number 31 Evaluation Information Evaluation Date 08/27/21 Precautions Precautions Diabetes type II, fall backward tripping over a bag 10/10/22 resulting in R anterior hip pain, recent fall through landing 04/15/22 increasing R LBP. PT-OP-B Current Condition Start: 08/26/21 17:47 Freq: Status: Active Protocol: Document 08/27/21 11:30 LRN (Rec: 08/27/21 12:29 LRN [id number]) Current Condition History of Current Condition Onset Date 05/26/21 Current Complaints Urinary leakage with sneeze or cough and general joint achiness. History of Current Condition Pt is 12 weeks s/p childbirth. Onset of urinary leakage since of son with 58 hour labor suffering a 2nd degree tear. Pt is having moderage urinary leakage, and random drops of leakage. If thinks she has to go, she is not able to wait to void. She leaks with sneezing or coughing. Struggles to move quickly due to excessive mobilty of joints causing soreness of joints everything aches. Pt is currently . At 6 wks physician follow-up with her staff certified nurse midwife, she was found to have her bladder had descended. Her vaginal incisions [facility] was told have healed. 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 Developmental History Developmental History Gestational: Diabetes, HTN, and reflux at week 16. Her HTN and reflux has normalized, but she still has type II diabetes. During preganancy: 2 placenta abruptions, Vaginal with vacuum.. 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 Current Functional Impairments (Reported) Functional Limitations- ADL's Urinary leakage with laughing, sneezing, coughing, General joint pains with movement. Functional Limitations- Mobility/Gait Goes sideways down stairs because of weakness and doesn' t feel safe. 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 Personal Factors Other Personal Factors That May Effect Pt reported: Therapy/Recovery Owns & works at [employer]. Hypermobile joints; therefore sitting still for > 5 minutes she has fear of joints moving too much increasing her risk of falling. Couple of times concerned of falling because body isn't moving. PT-OP-C Subjective Start: 08/26/21 17:47 Freq: Status: Active Protocol: Document 08/12/22 08:16 LRN (Rec: 08/12/22 09:01 LRN [id number]) OP-PT Subjective Patient Comments Patient Comments Requests DC due to leaving for [place] for 8 weeks. Baby and self were sick and with all the coughing was leaking more. Otherwise has vastly improved control and doing modified ex's in pool 3x/week, so TA strength is improving. PT-OP-I Pelvic Floor Start: 08/26/21 17:47 Freq: Status: Active Protocol: Document 08/12/22 08:16 LRN (Rec: 08/12/22 09:01 LRN [id number]) Pelvic Floor Assessment Pelvic Clock Pelvic Clock 6-9 Tenderness Contraction Ability Manual Muscle Testing Left 3 Manual Muscle Testing Right 3 Manual Muscle Testing Anterior 3 Manual Muscle Testing Posterior 2 Muscle Endurance (Seconds) 10 Number of Quick Contractions In 10 10 Seconds Comments Pelvic Floor Comments Quick Flicks 10 reps except at 6-7 O'Clock strength is 2/5. PT-OP-J Posture/Palpation/Skin Start: 08/26/21 17:47 Freq: Status: Active Protocol: Document 04/24/22 14:38 LRN (Rec: 04/24/22 16:49 LRN [id number]) Palpation Assessment Location Low back Palpation Location Ankles. Palpation Details Standing: R iliac crest high, R PSIS high. Supine - R leg is long. Long Sit- R leg long. PSLR is 90 deg's bilaterally. Post Treatment: Level Iliac Crests and equal leg lengths in supine. PT-OP-K Range of Motion Start: 08/26/21 17:47 Freq: Status: Active Protocol: Document 08/27/21 11:30 LRN (Rec: 08/27/21 12:29 LRN [id number]) Lumbar Spine Range of Motion Lumbar Spine Active Degrees Testing Position Standing Flexion 75 Extension 25 Rotation Left 20 Rotation Right 30 Lateral Flexion Left 15 Lateral Flexion Right 17 ROM Limitations Soft Tissue Tightness,Muscle Weakness,Pain Comments Trunk flexion is with 45 deg's hip flexion Trunk extension is with 10 deg 's hip extension Hip Goniometric Range of Motion Hip Right Passive Testing Position Supine Abduction 30 Internal Rotation 15 External Rotation 75 Left Passive Testing Position Supine Abduction 45 Internal Rotation 20 External Rotation 70 PT-OP-M Strength Start: 08/26/21 17:47 Freq: Status: Active Protocol: Document 12/17/21 13:50 LRN (Rec: 12/17/21 16:53 LRN [id number]) Trunk Strength Trunk Manual Muscle Testing Rotation Left 2 Poor Rotation Right 2 Poor Core Stabilization Pt not able to perform a TA contraction in lower abdomen ( umbilicus and below). PT-OP-Q Treatments Start: 08/26/21 17:47 Freq: Status: Active Protocol: Document 08/12/22 08:16 LRN (Rec: 08/12/22 09:01 LRN [id number]) Therapeutic Exercises Supine Exercises Trunk Rot w/UE's Supine Exercise Name Trunk Rot side to side of UE's /proper breathing Side bilateral Reps/Minutes 10' Comments Extra time to maximize Rotational strengthening with breath work. Hands/Knees Push Supine Exercise Name TA: Hands/knees push Reps/Minutes 6' Comments Cuing for abdomen not to bulge . Trunk rot Supine Exercise Name Knees 90/90, hands press into opposite thigh Side bilateral Reps/Minutes 4' Comments Cuing for abdomen not to bulge . PF Quick Flicks Supine Exercise Name PF Quick Flicks Reps/Minutes 4' PF Long Holds Supine Exercise Name PF Long Holds Equipment Used 4' Self-Care/Home Management Treatment Education Patient Education Home Exercise Program Other Education Discussed future ex precautions and self care for strengthening timeframe. Activities Self-Care/Home Management Activities I/S for trunk rot strengthening (sup, sit w/TB > stand w/TB, and upper Abdominal/TA flexion. PT-OP-R Modalities Start: 08/26/21 17:47 Freq: Status: Active Protocol: Document 02/24/22 08:18 LRN (Rec: 02/24/22 09:41 LRN [id number]) Ultrasound Therapy Treatment Lumbar paraspinals Treatment Duration (minutes) 8 Patient Position Prone Coupling Medium Ultrasound Gel Applicator Size (cm2) 10 Mode Setting Pulsed Duty Cycle 50% Intensity Setting (w/cm2) 1.5 PT-OP-S Aquatic Treatment Start: 03/02/22 19:22 Freq: Status: Active Protocol: Document 04/09/22 14:51 LJ (Rec: 04/09/22 15:03 LJ [id number]) Aquatics Treatment Pool Entry/Exit Pool Entry/Exit Method Stairs Assistance Independent Water Walking Marching Water Level Chest Level Walking Equipment Ankle Floats and paddles Level of Assistance Standby Assistance,Verbal Cues Comments cues for neutral postural alignment and core stabilization, arms for drag Sideways Water Level Chest Level Walking Equipment ankle floats and paddles Level of Assistance Standby Assistance,Verbal Cues Comments cues for neutral postural alignment and core stabilization, arms for drag Backwards Water Level Chest Level Level of Assistance Standby Assistance,Verbal Cues Comments cues for neutral postural alignment and core stabilization, arms for drag Forwards Water Level Chest Level Level of Assistance Standby Assistance,Verbal Cues Comments cues for neutral postural alignment and core stabilization, arms for drag Lower Extremity Exercises 4 way hip Body Position Standing Water Level Waist Level Reps/Duration 10 B each exercise Comments gentle mvmt within painfree ROM Lower Extremity Stretches piriformis Details ankle across knee; push down, pull toward opp shoulder. Equipment back against wall Reps/Duration 2x30 quad, hip flex Equipment Small Noodle Reps/Duration 2x30 IT band, groin Equipment Small Noodle Reps/Duration 2x30 HS stretch Equipment Small Noodle Reps/Duration 2x30 Upper Extremity Exercises shoulder flex/ext Body Position Standing Water Level Chest Level Equipment UE paddles Reps/Duration 10x symmetrical, 10x opp directions Comments cues for core engagement hor ab/ad Body Position Standing Water Level Chest Level Equipment UE paddles Reps/Duration 10x mariama, 10x unil Comments cues for core engagement pull down Equipment 2 medium barbells Reps/Duration 20x Comments cues for core engagement, neutral postural alignment Spinal Exercises wall squat DLS Details with shld hor ab/ad, flex/ext, marching Body Position Sitting Water Level Neck Level Reps/Duration 10x mariama, 10x unil Comments holding 2# weight against wall [place] Activities [place] Activities Bicycle,Bicycle Backwards, Cross [place],Sit Kicks Other Activities Deep water DLS, medium barballs: progressed UE pull downs in 90/90 position Equipment medium barbells PT-OP-T Assessment and Plan Start: 08/26/21 17:47 Freq: Status: Active Protocol: Document 08/12/22 08:16 LRN (Rec: 08/12/22 09:01 LRN [id number]) Physical Therapy Assessment Goals Six Impairment R hip pain rated 4-9/10 Impairment At rest pain is 4/10, with activity pain is 7-9/10. LEFS is 16 (80-99% impaired) Short Term Goal (STG) Decrease R hip pain to no more than 4/10 with activity. (12/30/21: R anterior groin pain is 0/10 at rest). (02/24/22: Pain 6/10 due to recent injury of back) (05/06/22: Pain 0/10 with normal daily activity unless leg extends beyond normal) STG Duration 01/31/22 (05/06/22: MET GOAL ) Cable Mechanic Goal (LTG) Decrease R hip pain to 0-1/10 at rest with modification to her sitting as needed, and with activity. 03/26/22: good goal progress (05/06/22: Pain 0/10 with normal daily activity unless leg extends beyond normal) LTG Duration 05/25/22 (05/06/22: MET GOAL) Five Impairment Urge incontinence in the presences of a strong urge. Short Term Goal (STG) Pt will be educated in Urge deference technique STG Duration 09/06/21 (09/13/21: MET GOAL) Mcfp Goal (LTG) Pt will be able to remain continent in the presence of a strong urge. (12/17/21: 85% of the time able to maintain continence) (02/24/22: 75% of time able to maintain continence) (05/06/22: 90% control) (05/30/22: 90% control) LTG Duration 05/25/22 (06/17/22: MET GOAL) Four Impairment Pain with palp at 3, 6, 9 of PF Clock Short Term Goal (STG) Pt will be educated in PF stretches. (12/17/21: Not able to do due to hip pain since fall ) (02/24/22: Not able to ex for past week due to recent LBP onset). (05/06/22: Reviewed self stretch with wand at PF clock 7). (: Reviewed Happy Baby Pose & PF stretch with wand with Med wand issued). STG Duration 01/31/22 (05/30/22: MET GOAL) Mcfp Goal (LTG) No pelvic pain with palpation. (05/06/22: Pain at PF clock 7) (06/13/22: PF PAIN at 6-5 of PF clock). (08/12/22: PF PAIN at 6-7/10) LTG Duration 08/28/22 (08/12/22: Improved, NOT MET GOAL) Three Impairment Pt has difficulty sustaining a Long Hold PF contraction for 10 secs Impairment (Initial: Long Hold 7 secs) Short Term Goal (STG) Pt will be able to perform a PF contraction in the absence of abdominal/gluteal muscles and hold for 5 secs. (09/23/21: Pt able to recognize doing a PF contraction in abscence of substitute muscles). STG Duration 01/31/22 (05/06/22: MET GOAL ) Mcfp Goal (LTG) Pt will improve PF endurance of holding 10 secs prior to fatigue and to improve strength to 3/5, with pt able to lift objects without onset of urinary leakage. LTG Duration 05/25/22 (05/06/22: MET GOAL) Two Impairment Urinary incontinence with a strong cough, sneeze or with laughing. Impairment Initial Quick Flick 0-1 rep Short Term Goal (STG) Improve PF Quick Flick strength with pt able to perform Quick contractions of 5 reps prior to fatigue. STG Duration 01/31/22 (05/06/22: MET GOAL ) Cable Mechanic Goal (LTG) Improve PF strength, of Quick Flicks to 3/5 strength, and ability to perform 10 quick flicks prior to fatigue. Pt will be able to maintain continence in the presence of a strong cough, sneeze and with sudden laughing. (05/06/22: Strength is 3/5, able to perform 8 quick contractions before fatigue).( 06/17/22: Strength is 3/5. Pt able to perform 10 Quick flicks with gluteal assist) (08/12/22: 10 Quick Flicks - w /o abdominal and minimal gluteal assist, strength 2/5 due to 2/5 strength at 6-7 O' Clock. Long Hold - 10 secs) . LTG Duration 08/28/22 (08/12/22: Partially met goal. Strength 2/5, Holds 10 secs) One Impairment Pt lacks appropriate self care HEP Short Term Goal (STG) Pt will be independent with a HEP of hip stretches and PF/TA /hip strengthening. (09/23/21: HEP: Verbal I/S : Sit to stands for Quick Flicks and for Long Holds - holding sit<>stand and doing hip ER/IR x 4 between bouts of sit<> stand. HEP: Fig 4 and Piriformis stretch). (12/30/21: Added TA strengthening 4 pt & I/S in sidelie & sup, I/S sitting LE roll in/out). (02/17/22: HEP: HAHA & cough training) (06/17/22: I/S pt in hip strengthening ex's that she does in pool. Pt chooses not to do ex's on land. No further PF strengthening is needed due to PF tightness/ tenderness). STG Duration 06/20/22 (06/17/22: MET GOAL) Mcfp Goal (LTG) Pt will be independent in a self care HEP for PF strengthening. (05/06/22: PF HEP to date: Quick and Long Hold Kegel ex; PF/LE roll in/outs; PF w/ transfers; PF with hip ex's) (08/12/22: Verbal review of pt 's HEP) LTG Duration 08/28/22 (08/12/22: MET GOAL for current status) Assessment Summary Assessment Pt has made good progress improving her PF and core strength. She does not demonstrate a diastasis rectus but does still have doming with supine head lifts; indicating TA weakness. The pt has reported recent onset of urinary leakage with coughing after having recovered from a recent cold. The pt has weakness of her superficial PF muscles at pelvic floor clock 6-7. Her Long hold strength is good and a PF contraction can be palpated for 10 secs. Pt did not bring in her vaginal electrode; therefore strength values could not be attained. The pt is leaving the country for 8 weeks; therefore requests discharge to her [facility]. The pt would benefit from further core strengthening and pelvic floor physical therapy , 3 month after she is no longer to work towards stabilization of pelvis/core and including rotational strengthening. Physical Therapy Plan Discharge Physical Therapy Discharge Reasons Patient Request Discharge Comments Thank you for your referral.
== END 2022-08-13 14:20 | disposition home or self-care (01) ==
LOC: PHYS 08:15
PROVIDERS: PCP Nurse Practitioner Family; Referring Provider Nurse Practitioner Obstetrics & Gynecology; Visit Provider Nurse Practitioner Obstetrics & Gynecology
DX: N81.0 Urethrocele (principal); N39.46 Mixed incontinence; M62.81 Muscle weakness (generalized); M40.46 Postural lordosis, lumbar region; M25.551 Pain in right hip
CPT/HCPCS: 97035; 97110; 97113; 97140; 97162; 97535

== ENCOUNTER → 2024-05-18 13:59 | Outpatient (CLI) | payer OTHER, SELFPAY | PROVIDERS: PCP Physician Assistant; Visit Provider Nurse Practitioner Family | DX: J02.9 Acute pharyngitis, unspecified (principal) | CPT/HCPCS: 87070 ==

== ENCOUNTER → 2024-07-08 16:31 | Outpatient (CLI) | payer OTHER, MEDICAID, SELFPAY ==
--- NOTE | 2024-07-08 16:38 | DI.MG.S_ITS ---
BILATERAL DIGITAL SCREENING MAMMOGRAM 3D/2D WITH CAD: 07/08/2024 CLINICAL: Routine screening. Baseline exam. No prior exams were available for comparison. The breasts are heterogeneously dense, which may obscure small masses (category c / 51-75% glandular tissue). Current study was also evaluated with a Computer Aided Detection (CAD) system. No significant masses, calcifications, or other findings are seen in either breast. IMPRESSION: NEGATIVE There is no mammographic evidence of malignancy. A 1 year screening mammogram is recommended. Based on the Tyrer Cuzick model (a risk assessment model) the patient's lifetime risk is 16.9% and her 10 year risk is 3.5%. According to the ACR, ACS, and NCCN guidelines, an annual breast MRI exam along with mammogram is recommended if the patient's lifetime risk is 20% or greater. This exam was interpreted at Station ID: [id number]. NOTE: For mammograms, a report in lay terms will be sent to the patient. Approximately 15% of breast malignancies will not be visualized mammographically. In the management of a palpable breast mass, a negative mammogram must not discourage biopsy of a clinically suspicious lesion. Electronically Signed By: Norma Vieira M.D., Ph.D. nerissa/dustin:07/12/2024 02:09:34 letter sent: Normal Exam ACR BI-RADS Category 1: Negative
== END ==
PROVIDERS: PCP Physician Assistant; Referring Provider Advanced Practice Midwife; Visit Provider Advanced Practice Midwife
DX: Z12.31 Encounter for screening mammogram for malignant neoplasm of breast (principal); R92.333 Mammographic heterogeneous density, bilateral breasts
CPT/HCPCS: 77063; 77067

== ENCOUNTER → 2025-04-10 11:35 | Outpatient (CLI) | payer BC, SELFPAY ==
[2025-04-10 12:14] LABS: Hematocrit 40.1 % (36-46); Hemoglobin 13.5 g/dL (12.0-16.0); Mean Corpuscular HGB Conc 33.6 % (30-36); Mean Corpuscular Hemoglobin 30.7 PG (26-34); Mean Corpuscular Volume 91.5 fL (80-100); Platelet Count 276 X10^3/uL (150-400); Red Blood Cell Count 4.39 X10^6/uL (4.0-5.2); Red Cell Distribution Width 13.9 % (11.6-14.8); White Blood Cell Count 6.7 X10^3/uL (4.5-11.0)
[2025-04-10 12:21] LABS: Hemoglobin A1C% w Est Avg Glu 5.7 % (4.0-6.0)
[2025-04-10 12:35] LABS: Alanine Aminotransferase 48 IU/L (<35); Albumin 4.6 g/dL (3.5-5.0); Albumin Globulin Ratio 1.4 (1.0-2.8); Alkaline Phosphatase 82 U/L (38-126); Aspartate Aminotransferase 35 IU/L (14-36); BUN Creatinine Ratio 23.4 (6-22); Bilirubin Total 0.7 mg/dL (0.2-1.3); Blood Urea Nitrogen 15 mg/dL (7-17); C-Reactive Protein Quant 0.6 mg/dL (<1.0); Calcium 9.2 mg/dL (8.4-10.2); Carbon Dioxide 26 mmol/L (22-32); Chloride 105 mmol/L (98-107); Cholesterol 176 mg/dL (140-199); Estimated Glomerular Filt Rate > 60 mL/min (>60); Globulin 3.2 g/dL (1.7-4.1); Glucose 115 mg/dL (70-99); HDL Cholesterol 46 mg/dL (40-60); HEMOLYSIS < 15 (0-50); LDL Cholesterol Calculated 111 mg/dL (<100); Potassium 4.8 mmol/L (3.4-5.1); Sodium 140 mmol/L (137-145); Total Protein 7.8 g/dL (6.3-8.2); Triglycerides 95 mg/dL (35-150)
[2025-04-10 12:49] LABS: Free T4, Direct Thyroxine 1.13 ng/dL (0.78-2.19)
[2025-04-10 13:03] LABS: Thyroid Stimulating Hormone 1.13 uIU/mL (0.47-4.68)
[2025-04-10 13:34] LABS: Glucose Fasting 117 mg/dL (70-100)
[2025-04-10 13:59] LABS: Glucose 1 Hour 210 mg/dL (70-170)
[2025-04-10 15:01] LABS: Glucose Tol Interpretation INTERPRETATION
[2025-04-10 15:09] LABS: Glucose 2 Hour 190 mg/dL (70-140)
== END ==
PROVIDERS: PCP Physician Assistant; Referring Provider Advanced Practice Midwife; Visit Provider Advanced Practice Midwife
DX: Z13.1 Encounter for screening for diabetes mellitus (principal); Z13.220 Encounter for screening for lipoid disorders; Z13.29 Encounter for screening for other suspected endocrine disorder; N95.9 Unspecified menopausal and perimenopausal disorder; E66.01 Morbid (severe) obesity due to excess calories; Z3A.42 42 weeks gestation of pregnancy
CPT/HCPCS: 36415; 80053; 80061; 82951; 82952; 83036; 84439; 84443; 85027; 86140